=== PATIENT | female | born 1955 | race Caucasian/White ===

== ENCOUNTER 2016-06-24 11:11 | Observation (INO) ==
[2016-06-24] MEDS ORDERED: methylPREDNISolone 125 MG/2 ML VIAL IVP ONE (11:19)
[2016-06-24] MEDS ORDERED: Ipratropium/Albuterol Neb 3 ML IH ONE (11:19)
--- NOTE | 2016-06-24 11:22 | Emergency Department Note ---
Disposition Clinical Impression: Acute exacerbation of chronic obstructive airways disease Disposition: Admitted As Inpatient Condition: Good Time of Disposition: 14:31 General Adult HPI - General Chief complaint: ED Shortness of Breath/Dyspnea Stated complaint: sob Time Seen by Provider: 06/24/16 11:14 Source: EMS Limitations: no limitations Nursing Notes Reviewed: Yes Vital Signs Reviewed: Yes - History of Present Illness HPI Narrative: 61-year-old who comes in complaining of increasing shortness of breath with a history COPD. Patient's blood pressure was significantly elevated she states she normally doesn't have high blood pressure takes no medications for it. Also states she's had intermittent rectal bleeding for almost a year now. States she saw her family doctor and they gave her MiraLAX for the problem. She also complains of burning on urination. The patient also complains of pain between her shoulder blades. Pt Subjective Complaint: Shortness of breath, burning on urination recurrent rectal bleeding. Onset (ago): Just [employer] Location: back Radiation: non-radiation (Upper) Pain Severity: severe Pain Scale: 10 Quality: aching Consistency: constant Improves with: nothing Worsens with: nothing Associated symptoms: Reports: cough Treatments Prior to Arrival: none - Related Data Home Medications Medication Instructions Recorded Confirmed Calcium Carbonate/Vitamin D3 1 tab PO BID #0 06/09/15 06/24/16 [Calcium 500 + Vit D Caplet] Citalopram Hydrobromide [Celexa] 20 mg PO DAILY 06/09/15 06/24/16 Ergocalciferol (VITAMIN D2) 50,000 unit PO QWEEK 06/09/15 06/24/16 [Drisdol (50,000 Unit)] Fluticasone Propionate [Flovent 50 mcg IH DAILY 06/09/15 06/24/16 Diskus] Fluticasone/Salmeterol [Advair 1 each IH DAILY 06/09/15 06/24/16 250-50 Diskus] Furosemide [Lasix] 20 mg PO DAILY 06/09/15 06/24/16 Ipratropium/Albuterol Neb [Duoneb] 3 ml IH Q6HR 06/09/15 06/24/16 Lansoprazole [Prevacid] 30 mg PO QAM 06/09/15 06/24/16 Pregabalin [Lyrica] 75 mg PO BID 06/09/15 06/24/16 Tiotropium [Spiriva] 18 mcg IH DAILY 06/09/15 06/24/16 Vit D3/Folic Acid/B2/B6/B12 1 each PO DAILY 06/09/15 06/24/16 [Folgard Tablet] Oxygen 2 l NS CONT 06/24/16 06/24/16 Potassium Chloride [Klor-Con 10] 10 meq PO DAILY 06/24/16 06/24/16 Allergies Allergy/AdvReac Type Severity Reaction Status Date / Time bupropion [From Wellbutrin] AdvReac Nightmare Verified 06/24/16 14:52 codeine AdvReac Hives Verified 06/24/16 14:52 gabapentin AdvReac Difficulty Verified 06/24/16 14:52 Breathing ibuprofen AdvReac Hives Verified 06/24/16 14:52 levofloxacin AdvReac Hives Verified 06/24/16 14:52 meperidine AdvReac Hives Verified 06/24/16 14:52 morphine AdvReac Hives Verified 06/24/16 14:52 naproxen AdvReac Hives Verified 06/24/16 14:52 NSAIDS (Non-Steroidal AdvReac Hives Verified 06/24/16 14:52 Anti-Inflamma Sulfa (Sulfonamide AdvReac Hives Verified 06/24/16 14:52 Antibiotics) tramadol AdvReac Difficulty Verified 06/24/16 14:52 Breathing Varenicline AdvReac Hives Verified 06/24/16 14:52 Constitutional: Denies: fever, chills, weakness, weight change Eyes: Denies: eye pain, eye discharge, vision change ENT ED: Denies: ear pain, throat pain, dental pain, hearing loss, epistaxis, congestion, dysphagia Cardiovascular: Denies: chest pain, palpitations, dyspnea on exertion, edema, syncope Respiratory: Denies: cough, dyspnea, wheezes, hemoptysis, stridor Gastrointestinal: Reports: hematochezia. Denies: abdominal pain, nausea, vomiting, diarrhea, constipation, hematemesis, melena Genitourinary: Reports: dysuria. Denies: frequency, hematuria, discharge Musculoskeletal: Reports: back pain. Denies: neck pain, arthralgia, myalgia Integumentary: Denies: rash, abrasion, lesions Neurological: Denies: headache, weakness, numbness, paresthesias, confusion, abnormal gait, vertigo Psychiatric: Denies: anxiety, depression, suicidal thoughts, homicidal thoughts , auditory hallucinations, visual hallucinations Endocrine: Denies: fatigue Hematological/Lymphatic: Denies: easy bleeding, easy bruising Allergic/Immunologic: Denies: facial swelling, urticaria Past Medical History - Past Medical History Medical history: Reports: asthma, COPD, GERD, other Surgical history: Reports: cholecystectomy, knee replacement, other Psychiatric history: Reports: anxiety, bipolar, depression - Social History Smoking Status: Current every day smoker Smokeless Tobacco Status: No Alcohol use: Reports: occasionally Drug use: Reports: none Physical Exam - General Limitations: no limitations General appearance: alert - Head Head exam: atraumatic, normocephalic, normal inspection - Eye Eye exam: Present: normal appearance, PERRL, EOMI - ENT ENT exam: normal exam, normal oropharynx, mucous membranes moist - Neck Neck exam: Present: normal inspection, full ROM, trachea midline - Chest Chest inspection: Present: normal inspection, symmetric chest wall rise - Cardiovascular Cardiovascular exam: Present: regular rate, normal rhythm, normal heart sounds - Abdominal Exam Abdominal exam: Present: soft, Non-Tender. Absent: tenderness, distention, guarding, rebound, rigidity - Extremities Exam Extremities exam: Present: normal inspection, full ROM. Absent: tenderness, pedal edema - Expanded Lower Extremity Exam Neurovascular/Tendon exam: Absent: motor deficit, sensory deficit, tendon deficit Gait: observed and normal - Back Exam Back exam: Present: normal inspection, full ROM. Absent: tenderness - Neurological Exam Neurological exam: Present: alert, oriented X3. Absent: normal gait, motor sensory deficit - Psychiatric Psychiatric exam: Present: normal affect, normal mood - Skin Skin exam: Present: warm, intact, normal color Course - Reevaluation(s) Reevaluation #1: 61-year-old with history of COPD comes in with increasing shortness of breath. Patient is oxygen dependent at home and uses 2 L she is requiring 4 L to maintain her sat now. Treated with breathing treatments steroids had some improvement she also complained of pain in her back between her shoulder blades. A CTA was obtained due to the patient's symptoms and the fact she had a significantly elevated blood pressure. No evidence of dissection on CT. She will be admitted for an exacerbation of COPD Time: 14:32 - Consultations Consultation #1: Discussed with Dr. Grimes. Time: 14:36 Vital Signs Temperature 98.6 F 06/24/16 11:16 Pulse Rate 94 06/24/16 11:16 Respiratory Rate 20 06/24/16 11:16 Blood Pressure 170/125 06/24/16 11:16 O2 Sat by Pulse Oximetry 93 06/24/16 11:16 Temperature 98.6 F 06/24/16 11:16 Pulse Rate 92 06/24/16 14:24 Respiratory Rate 19 06/24/16 15:02 Blood Pressure 146/88 06/24/16 15:02 O2 Sat by Pulse Oximetry 94 06/24/16 14:24 Oxygen Delivery Oxygen Delivery Nasal Cannula Medical Decision Making - Lab Data Result diagrams: 06/24/16 12:05 06/24/16 12:05 Lab Results 06/24/16 06/24/16 06/24/16 Range/Units 11:55 12:05 12:05 WBC 8.0 (4.3-11.1) K/mcL RBC 4.69 (3.82-4.97) M/mcL Hgb 13.3 (11.5-15.4) g/dL Hct 42.4 (35.3-44.9) % MCV 90.4 (83.0-100.0) fL MCH 28.4 (28.0-33.3) pg MCHC 31.4 L (31.6-35.5) g/dL RDW 17.4 H (11.5-14.5) % Plt Count 273 (140-400) K/mcL MPV 10.1 (9.4-12.4) fL Immature Gran % 0.4 (0-4) % Seg Neutrophils % 62.6 % Lymphocytes % 24.4 % Monocytes % 11.1 % Eosinophils % 1.0 % Basophils % 0.5 % Neutrophils # 5.0 (1.6-8.9) K/mcL Lymphocytes # 2.0 (0.6-4.6) K/mcL Monocytes # 0.9 (0.0-1.3) K/mcL Eosinophils # 0.1 (0.0-0.6) K/mcL Basophils # 0.0 (0.0-0.2) K/mcL PT 10.7 (9.4-12.1) Seconds INR 1.0 APTT 27.1 (26.0-36.0) Seconds Sodium 137 (136-145) mEq/L Potassium 4.3 (3.5-4.5) mEq/L Chloride 102 (98-109) mEq/L Carbon Dioxide 27 (19-29) mEq/L BUN 10 (7-20) mg/dL Creatinine 0.75 (0.57-1.11) mg/dL Est GFR ( Amer) > 60 (> 60) Est GFR (Non-Af Amer) > 60 (> 60) BUN/Creatinine Ratio 13 (6-26) Glucose 92 (70-99) mg/dL Calculated Osmolality 283 (280-300) Calcium 9.2 (8.6-10.8) mg/dL Troponin I (0-0.03) ng/mL B-Natriuretic Peptide (0-100) pg/mL 06/24/16 06/24/16 Range/Units 12:05 12:05 WBC (4.3-11.1) K/mcL RBC (3.82-4.97) M/mcL Hgb (11.5-15.4) g/dL Hct (35.3-44.9) % MCV (83.0-100.0) fL MCH (28.0-33.3) pg MCHC (31.6-35.5) g/dL RDW (11.5-14.5) % Plt Count (140-400) K/mcL MPV (9.4-12.4) fL Immature Gran % (0-4) % Seg Neutrophils % % Lymphocytes % % Monocytes % % Eosinophils % % Basophils % % Neutrophils # (1.6-8.9) K/mcL Lymphocytes # (0.6-4.6) K/mcL Monocytes # (0.0-1.3) K/mcL Eosinophils # (0.0-0.6) K/mcL Basophils # (0.0-0.2) K/mcL PT (9.4-12.1) Seconds INR APTT (26.0-36.0) Seconds Sodium (136-145) mEq/L Potassium (3.5-4.5) mEq/L Chloride (98-109) mEq/L Carbon Dioxide (19-29) mEq/L BUN (7-20) mg/dL Creatinine (0.57-1.11) mg/dL Est GFR ( Amer) (> 60) Est GFR (Non-Af Amer) (> 60) BUN/Creatinine Ratio (6-26) Glucose (70-99) mg/dL Calculated Osmolality (280-300) Calcium (8.6-10.8) mg/dL Troponin I 0.00 (0-0.03) ng/mL B-Natriuretic Peptide 82 (0-100) pg/mL - Radiology Data Radiology results reviewed: Yes I reviewed the patient's radiology results. Chest X-Ray 06/24/16 11:19 IMPRESSION: 1. Low lung volumes with bibasilar atelectasis. D/ / 06/24/2016 11:44:39 Marianna Singh MD / colt Interpreting Provider: Marianna Singh MD Abdomen/Pelvis CT 06/24/16 11:26 IMPRESSION: 1. No pulmonary embolus. 2. No acute cardiopulmonary disease. Basilar atelectasis is present. 3. No acute intra-abdominal abnormality. 4. Moderate diverticulosis. 5. Severe atherosclerosis. 6. Status post cholecystectomy. D/ / 06/24/2016 13:58:34 Marianna Singh MD / colt Interpreting Provider: Marianna Singh MD Chest CTA 06/24/16 11:26 IMPRESSION: 1. No pulmonary embolus. 2. No acute cardiopulmonary disease. Basilar atelectasis is present. 3. No acute intra-abdominal abnormality. 4. Moderate diverticulosis. 5. Severe atherosclerosis. 6. Status post cholecystectomy. D/ / 06/24/2016 13:58:34 Marianna Singh MD / colt Interpreting Provider: Marianna Singh MD - EKG Data EKG #1 EKG shows normal: sinus rhythm Rate: normal Rhythm: NSR Interpretation: no acute changes
[2016-06-24 12:13] LABS: Prothrombin Time 10.7 Seconds (9.4-12.1)
[2016-06-24 12:16] LABS: Activated Partial Thrombo Time 27.1 Seconds (26.0-36.0)
[2016-06-24 12:22] LABS: Basophils % 0.5 %; Eosinophils # 0.1 K/mcL (0.0-0.6); Hematocrit 42.4 % (35.3-44.9); Hemoglobin 13.3 g/dL (11.5-15.4); Immature Granulocytes % 0.4 % (0-4); Lymphocytes % 24.4 %; Mean Corpuscular HGB Conc 31.4 g/dL (31.6-35.5); Mean Corpuscular Hemoglobin 28.4 pg (28.0-33.3); Mean Corpuscular Volume 90.4 fL (83.0-100.0); Mean Platelet Volume 10.1 fL (9.4-12.4); Monocytes # 0.9 K/mcL (0.0-1.3); Monocytes % 11.1 %; Platelet Count 273 K/mcL (140-400); Red Blood Count 4.69 M/mcL (3.82-4.97); Red Cell Distribution Width 17.4 % (11.5-14.5); Segmented Neutrophils % 62.6 %
[2016-06-24 12:37] LABS: BUN/Creatinine Ratio 13 (6-26); Blood Urea Nitrogen 10 mg/dL (7-20); Calcium 9.2 mg/dL (8.6-10.8); Carbon Dioxide 27 mEq/L (19-29); Chloride 102 mEq/L (98-109); Glucose 92 mg/dL (70-99); Osmolality,Calculated 283 (280-300); Potassium 4.3 mEq/L (3.5-4.5); Sodium 137 mEq/L (136-145); eGFR For African Americans > 60 (> 60); eGFR For Non-African Americans > 60 (> 60)
[2016-06-24] MEDS ORDERED: Ondansetron 4 MG/2 ML VIAL IVP ONE (13:08)
[2016-06-24] MEDS ORDERED: *HR* HYDROmorphone (PF) 1 MG/ML SYRINGE IVP ONE (13:08)
--- NOTE | 2016-06-24 16:00 | Internal Med History&Physical ---
Date of Encounter: 06/24/16 Time of Encounter: 15:56 Assessment and Plan (1) Acute exacerbation of chronic obstructive airways disease Current visit: Yes Status: Acute was given IV methylpred and nebs at ED that improved her symptoms. she has no wheezing now and is sating well will put her on oral steroids and duonebs. no pneumonia on the CT. possible dc in the am if stable overnight. (2) HTN (hypertension) Current visit: Yes Status: Acute no h.o HTN In the past. noted BP of 200s systolic on presentation BP much better now at 160/90s. will observe for today, ?2/2 stress, hydralazine prn. if persistently elevated , may need to add an anti hypertensive. Qualifiers: Hypertension type: essential hypertension Qualified Code(s): I10 - Essential (primary) hypertension (3) Obesity Current visit: No Status: Acute Qualifiers: Obesity type: unspecified obesity type Obesity severity: unspecified obesity severity Qualified Code(s): E66.9 - Obesity, unspecified (4) Tobacco abuse Current visit: No Status: Acute Internal Medicine - H&P: HPI Chief complaint: sob Admitted From: Home Plans for Post Hospital Care: Home History of present illness: Ms. Soto is a 61 year old female with past medical history of COPD on 2 L of home oxygen at night, presented with the complains of shortness of breath since this morning. She says that she woke up with shortness of breath and some chest heaviness. She took her breathing treatments at home, however her symptoms did not improve. She denies any fever, she has chronic cough from COPD. No abdominal pain, nausea or vomiting. She has history of diverticulosis, and GI bleed in the past. She has not had a colonoscopy and was scheduled for one but she says the transport never showed up. However she denies any bleeding in her stool at this time or any h/o moi. AT the time of my assesment, she is sitting comfortably in the bed in no acute distress. the rehabilitation institute reports that she has no h/o HTN but on presentation, her BP was elevated. Past Med Surg Social Fam HX - Past Medical History Medical history: asthma, COPD, GERD, other Psychiatric history: anxiety, bipolar, depression - Past Surgical History Surgical History: cholecystectomy, knee replacement, other - Social History Smoking Status: Current every day smoker Smokeless Tobacco Status: No Alcohol use: occasionally Drug use: none - Family History Father Adopted: No Hx Family Cardiac Disorders: Yes Hx Family Respiratory Disorders: Yes Hx Family Cancer: Yes Hx Family GI Disorders: No Hx Family Endocrine Disorder: No Hx Family Neuromuscular Disorders: No Hx Family Neurologic Disorders: No Hx Family HEENT Disorders: No Hx Family Autoimmune Disorders: No Internal Medicine - H&P: Meds Calcium Carbonate/Vitamin D3 [Calcium 500 + Vit D Caplet] 1 tab PO BID #0 06/08 [History] Citalopram Hydrobromide [Celexa] 20 mg PO DAILY 06/09/15 [History] Ergocalciferol (VITAMIN D2) [Drisdol (50,000 Unit)] 50,000 unit PO QWEEK [History] Fluticasone Propionate [Flovent Diskus] 50 mcg IH DAILY 06/09/15 [History] Fluticasone/Salmeterol [Advair 250-50 Diskus] 1 each IH DAILY 06/09/15 [History] Furosemide [Lasix] 20 mg PO DAILY 06/09/15 [History] Ipratropium/Albuterol Neb [Duoneb] 3 ml IH Q6HR 06/09/15 [History] Lansoprazole [Prevacid] 30 mg PO QAM 06/09/15 [History] Pregabalin [Lyrica] 75 mg PO BID 06/09/15 [History] Tiotropium [Spiriva] 18 mcg IH DAILY 06/09/15 [History] Vit D3/Folic Acid/B2/B6/B12 [Folgard Tablet] 1 each PO DAILY 06/09/15 [History] Oxygen 2 l NS CONT 06/24/16 [History] Potassium Chloride [Klor-Con 10] 10 meq PO DAILY 06/24/16 [History] Allergies bupropion [From Wellbutrin] Adverse Reaction (Verified 06/24/16 14:52) Nightmare codeine Adverse Reaction (Verified 06/24/16 14:52) Hives gabapentin Adverse Reaction (Verified 06/24/16 14:52) Difficulty Breathing ibuprofen Adverse Reaction (Verified 06/24/16 14:52) Hives levofloxacin Adverse Reaction (Verified 06/24/16 14:52) Hives meperidine Adverse Reaction (Verified 06/24/16 14:52) Hives morphine Adverse Reaction (Verified 06/24/16 14:52) Hives naproxen Adverse Reaction (Verified 06/24/16 14:52) Hives NSAIDS (Non-Steroidal Anti-Inflamma Adverse Reaction (Verified 06/24/16 14:52) Hives Sulfa (Sulfonamide Antibiotics) Adverse Reaction (Verified 06/24/16 14:52) Hives tramadol Adverse Reaction (Verified 06/24/16 14:52) Difficulty Breathing Varenicline Adverse Reaction (Verified 06/24/16 14:52) Hives All Systems PM: A 10-system review of systems was performed and is negative for pertinent findings except as documented above in the HPI. - Constitutional Vitals: Temp Pulse Resp BP Pulse Ox 97.5 F L 110 19 166/84 96 06/24/16 15:34 06/24/16 15:34 06/24/16 15:34 06/24/16 15:34 06/24/16 15:34 General appearance: Present: A&O X 3, no acute distress Exam: neck- supple chest- b.l clear, no wheezing at present cvs-s1 and s2, no m/r/g abd- soft, non tender, bs are present ext- no edema neuro- no focal defecits. Internal Med - H&P Results - Labs CBC & Chem 7: 06/24/16 12:05 06/24/16 12:05
[2016-06-24] MEDS ORDERED: Naloxone 0.4 MG/ML INJ IVP PRN (16:06)
[2016-06-24] MEDS ORDERED: Ipratropium/Albuterol Neb 3 ML IH PRN (16:07)
[2016-06-24] MEDS ORDERED: Budesonide/Formoterol 80/4.5 MDI IH SCH (16:15)
[2016-06-24] MEDS: Tiotropium 18 MCG inhalation IH SCH (16:32)
[2016-06-24] MEDS: *HR* HYDROcodone/Acet 5/325 mg TABLET PO PRN (18:50)
[2016-06-24] MEDS: Pregabalin 75 MG CAPSULE PO SCH (20:32)
[2016-06-24] MEDS: (Calcium Carbonate/Vitamin D3 [Calcium 500 + Vit D Ca) PO SCH (20:32)
[2016-06-24] MEDS ORDERED: *HR* HYDROcodone/Acet 5/325 mg TABLET PO ONE (21:44)
[2016-06-24 22:16] LABS: Bilirubin,Urine Negative (Negative); Blood,Urine Negative (Negative); Clarity,Urine Clear (Clear); Color,Urine Yellow (Yellow); Glucose,Urine (UA) Normal (Normal); Ketones,Urine Negative (Negative); Leukocyte Esterase,Urine Small (Negative); Nitrite,Urine Negative (Negative); PH,Urine 6.5 pH Units (5.0-8.0); Protein,Urine Negative (Neg-Trace); Specific Gravity,Urine 1.008 (1.010-1.025); Urobilinogen,Urine Normal (Normal)
[2016-06-24 22:19] LABS: Bacteria,Urine None Seen per hpf (None-Few); Hyaline Casts,Urine None Seen per lpf (None-Few); RBC,Urine 0-3 per hpf (0-3); Squamous Epithelial Cell,Urine Many per lpf (None-Few)
[2016-06-25] MEDS: *HR* HYDROcodone/Acet 5/325 mg TABLET PO PRN ×2 (01:15→07:27)
[2016-06-25 03:38] LABS: Immature Granulocytes % 0.4 % (0-4); Lymphocytes # 0.8 K/mcL (0.6-4.6); Lymphocytes % 14.5 %; Mean Corpuscular HGB Conc 31.6 g/dL (31.6-35.5); Mean Corpuscular Hemoglobin 28.4 pg (28.0-33.3); Mean Corpuscular Volume 89.8 fL (83.0-100.0); Monocytes # 0.5 K/mcL (0.0-1.3); Monocytes % 9.8 %; Neutrophils # 4.1 K/mcL (1.6-8.9); Platelet Count 273 K/mcL (140-400); Red Blood Count 4.23 M/mcL (3.82-4.97); Red Cell Distribution Width 16.8 % (11.5-14.5); Segmented Neutrophils % 75.3 %
[2016-06-25 03:51] LABS: BUN/Creatinine Ratio 17 (6-26); Blood Urea Nitrogen 12 mg/dL (7-20); Calcium 8.6 mg/dL (8.6-10.8); Carbon Dioxide 26 mEq/L (19-29); Chloride 100 mEq/L (98-109); Glucose 120 mg/dL (70-99); Magnesium 1.6 mg/dL (1.6-2.6); Osmolality,Calculated 279 (280-300); Phosphorous 3.4 mg/dL (2.3-4.7); Sodium 134 mEq/L (136-145); eGFR For African Americans > 60 (> 60); eGFR For Non-African Americans > 60 (> 60)
[2016-06-25] MEDS ORDERED: *HR* Enoxaparin 30 MG/0.3 ML SYRINGE SQ SCH (06:00)
[2016-06-25] MEDS: Pregabalin 75 MG CAPSULE PO SCH (07:27)
[2016-06-25] MEDS: (Calcium Carbonate/Vitamin D3 [Calcium 500 + Vit D Ca) PO SCH (07:30)
[2016-06-25] MEDS: Tiotropium 18 MCG inhalation IH SCH (08:25)
[2016-06-25] MEDS ORDERED: Furosemide 20 MG TABLET PO SCH (09:00)
[2016-06-25] MEDS ORDERED: predniSONE 20 MG TABLET PO SCH (09:00)
[2016-06-25] MEDS ORDERED: Fluticasone Propionate Nasal 50 MCG/SPRAY BOTTLE NS SCH (09:00)
[2016-06-25 11:12] VITALS: BP 144/82
--- NOTE | 2016-06-25 12:16 | Discharge Summary ---
Date of Encounter: 06/25/16 Time of Encounter: 09:00 - Discharge Diagnosis (1) Acute exacerbation of chronic obstructive airways disease Priority: Primary Status: Acute Comments: Patient was admitted for 1 week history of difficulty breathing. She reports a productive cough with white sputum. She denies fever or chills. CTA of the chest showed no PE, no acute cardiopulmonary disease and bibasilar atelectasis. Patient states that she is returned to her baseline breathing and is ready to go home. Her lungs are diminished with inspiratory wheezing posteriorly. Lungs are clear and upper anterior lung avila. Patient states that her humidifier for her oxygen has been broken for 13 months. bag shop worker is talking with her regarding calling company to get it fixed. Patient states that she fired her primary care physician, she has not made an appointment with Bhanu Calle and has an appointment on August 15. She has no fever and no leukocytosis at this time. She is doing well with breathing treatments. She says she does not need any medications for home. (2) Obesity Priority: Secondary Status: Chronic Comments: Chronic. Lifestyle changes. Qualifiers: Obesity type: unspecified obesity type Obesity severity: unspecified obesity severity Qualified Code(s): E66.9 - Obesity, unspecified (3) Tobacco abuse Priority: Secondary Status: Chronic Comments: I attempted to discuss smoking cessation with patient she says that she is not ready although she knows she needs to quit. (4) HTN (hypertension) Priority: Secondary Status: Acute Comments: Patient's blood pressure was 200 systolic in the emergency department. It came down on its own to 160s over 90s in the emergency department. She has been 140s over 80s today which is near baseline, and has been 120s systolic prior to that. She denies any history of hypertension and says that she has never had high readings in the past. I discussed with her checking blood pressures at 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 I suggested that she follow-up with her new provider and if readings are above 180 systolic she should seek medical help. Qualifiers: Hypertension type: essential hypertension Qualified Code(s): I10 - Essential (primary) hypertension (5) History of GI bleed Priority: Secondary Status: Acute Comments: Patient states that she has a four-month history of GI bleeding daily. She was incontinent and has begun wearing attends. She says that it stopped about a month ago, however, she is still wearing the intestines. Patient reports what appeared to be red Jell-O with blood clots intermittently in her stool. She says that she was having 15-20 episodes a day of diarrhea. Sometimes dark stool sometimes the red Jell-O with blood clots, and sometimes just regular stool. She said that she saw Dr. Sutton who attempted to give her stool softeners which she felt was not appropriate treatment, so she "fired" him. He scheduled a colonoscopy in May which she missed due to transportation issues. She said that the bleeding has stopped. Her hemoglobin and hematocrit are within normal limits. She does not appear to be in any respiratory distress and her vital signs are stable. She had a CT in the emergency room last night that showed no acute intra-abdominal abnormality, moderate diverticulosis, status post cholecystectomy. She said she will follow-up with her new primary care physician, Bhanu Calle, for follow-up in August. - Discharge Medications Prescriptions: PredniSONE 10 mg PO DAILY #31 tablet Home Medications: Calcium Carbonate/Vitamin D3 [Calcium 500 + Vit D Caplet] 1 tab PO BID #0 06/08 [History] Citalopram Hydrobromide [Celexa] 20 mg PO DAILY 06/09/15 [History] Ergocalciferol (VITAMIN D2) [Drisdol (50,000 Unit)] 50,000 unit PO QWEEK [History] Fluticasone Propionate [Flovent Diskus] 50 mcg IH DAILY 06/09/15 [History] Fluticasone/Salmeterol [Advair 250-50 Diskus] 1 each IH DAILY 06/09/15 [History] Furosemide [Lasix] 20 mg PO DAILY 06/09/15 [History] Ipratropium/Albuterol Neb [Duoneb] 3 ml IH Q6HR 06/09/15 [History] Lansoprazole [Prevacid] 30 mg PO QAM 06/09/15 [History] Pregabalin [Lyrica] 75 mg PO BID 06/09/15 [History] Tiotropium [Spiriva] 18 mcg IH DAILY 06/09/15 [History] Vit D3/Folic Acid/B2/B6/B12 [Folgard Tablet] 1 each PO DAILY 06/09/15 [History] Oxygen 2 l NS CONT 06/24/16 [History] Potassium Chloride [Klor-Con 10] 10 meq PO DAILY 06/24/16 [History] PredniSONE 10 mg PO DAILY #31 tablet 06/25/16 [Rx] Allergies/Adverse Reactions: Allergies bupropion [From Wellbutrin] Adverse Reaction (Verified 06/24/16 14:52) Nightmare codeine Adverse Reaction (Verified 06/24/16 14:52) Hives gabapentin Adverse Reaction (Verified 06/24/16 14:52) Difficulty Breathing ibuprofen Adverse Reaction (Verified 06/24/16 14:52) Hives levofloxacin Adverse Reaction (Verified 06/24/16 14:52) Hives meperidine Adverse Reaction (Verified 06/24/16 14:52) Hives morphine Adverse Reaction (Verified 06/24/16 14:52) Hives naproxen Adverse Reaction (Verified 06/24/16 14:52) Hives NSAIDS (Non-Steroidal Anti-Inflamma Adverse Reaction (Verified 06/24/16 14:52) Hives Sulfa (Sulfonamide Antibiotics) Adverse Reaction (Verified 06/24/16 14:52) Hives tramadol Adverse Reaction (Verified 06/24/16 14:52) Difficulty Breathing Varenicline Adverse Reaction (Verified 06/24/16 14:52) Hives Date of admission: 06/24/16 14:52 Primary care physician: Mina Richards MD Discharging clinician: Kenisha Capps Anticipated date of discharge: 06/25/16 - Patient Status Disposition: Home, Self-Care Functional capacity at discharge: independent ambulation Overall status at discharge: patient is back to baseline - Discharge Instructions Follow Up With: Mina Richards MD [Primary Care Provider] - 07/02/16 1:15 pm Additional Instructions: Take your home medications Take prednisone as written until it is gone. Wear your oxygen as needed Make sure that you are checking your blood pressure, if it is elevated again, please seek medical treatment. Follow up with Bhanu Calle as scheduled in August. Return to the ER as needed for any other problems or concerns. - Diet and Activity Activity: increase activity as tolerated Diet: low fat, low cholesterol, low salt diet Hospital course: Ms. Soto is a 61 year old female with past medical history COPD shortness oxygen at night. She also reports a recent history of 4 months of GI bleeding. She reports what looked like red Jell-O with blood clots multiple times. She says she has become incontinent of stool for the last 4 months but has regained continence, and is still wearing attends. She says that she had 15-20 episodes of diarrhea daily, sometimes it was dark stool, sometimes it was blood, and sometimes of his normal stool. She denies any back injury or back pain. She says that she was seen by her primary care physician who gave her laxatives because he believed she was constipated. He also scheduled a colonoscopy for her that she missed due to transportation issues. She has since fired her family physician and has an appointment with Bhanu Calle on August 15. Her abdomen is soft and rounded bowel sounds are present. She denies loose stools anymore and says that she has regular again. She attributes all this to poor quality drinking water where she was living, she has moved now and takes bottled water. She says this is most likely what resolved her symptoms. Her abdomen is soft obese and nontender. Her CAT scan from the emergency department showed no acute intra-abdominal abnormality and moderate diverticulosis. Patient reports that she was supposed to go to urgent care 1 week ago for urinary symptoms but could not go because her family friend's car was impounded and they had no way to get there. At the same time she also says that she began having difficulty breathing. She was not seen until yesterday for both symptoms. She reports a productive cough with white sputum but denies fever. She reported urinary symptoms of frequency and burning, however she denied them to me. Urine was positive for small amount of leukocyte esterase and white blood cells 5-15. There is negative for bacteria and a culture is pending. She is also being treated for exacerbation of COPD. One-week history of productive cough and shortness of breath. Her chest CT was negative for PE as well as cardiopulmonary disease. Basilar atelectasis is present. She states that her humidifier for her oxygen is broken, it was broken 13 months ago when she moved. bag shop worker has discussed with her how to get that fixed. Patient states that she still has a tank which she uses. She denies need for prescriptions. We discussed her blood pressure is 140s over 80s currently which is high recommended baseline. I discussed with her that she should have her blood pressure checked routinely whether she is at [facility] or [facility] or wherever she goes and if it goes much higher she needs to seek medical attention. Patient states that she has returned to her own baseline of breathing and wants to go home. Patient is stable for discharge. - Time Spent with Patient Total time spent providing and/or coordinating discharge services: Less than 30 minutes - Constitutional Vitals: Temp Pulse Resp BP Pulse Ox 98.5 F 76 16 144/82 93 06/25/16 11:11 06/25/16 11:11 06/25/16 11:11 06/25/16 11:11 06/25/16 11:11 General appearance: Present: A&O X 3, pleasant, no acute distress, answers questions appropriately - Head Head exam: Present: normal inspection - Eye Eye exam: Present: normal appearance, conjuntiva pink - Neck Neck exam general surgery: Present: normal inspection. Absent: lymphadenopathy , tenderness - Respiratory Respiratory exam: Present: decreased breath sounds, rhonchi, wheezes. Absent: rales, respiratory distress, tachypnea - GI/Abdominal GI/Abdominal exam: Present: normal bowel sounds, soft. Absent: distended, hepatomegaly, tenderness - Extremities Exam Extremities exam: Present: normal capillary refill, normal inspection, warm, radial pulses palpable and symetrical. Absent: pedal edema, tenderness - Neurological Exam Neurological exam: Present: alert, oriented X3, no focal deficits. Absent: facial droop, speech deficit
[2016-06-26] MEDS ORDERED: *HR* Enoxaparin 40 MG/0.4 ML SYRINGE SQ SCH (06:00)
--- NOTE | 2016-06-26 06:15 | Electrocardiograph Report ---
[address] [place], [place] [address] Test Date: 2016-06-24 Pat Name: Mariaelena Soto Department: 104 Room: 3B24 Gender: F Progressive Care Nurse: : 1955 Requested By: Cornelius García Order Number: [id number] Reading MD: Tanner Stafford MD Measurements Intervals [place] Rate: 94 P: 44 FL: 156 QRS: 26 QRSD: 88 T: 46 QT: 338 QTc: 390 Interpretive Statements SINUS RHYTHM Electronically Signed On 06-26-2016 6:13:46 EDT by Tanner Stafford MD
[2016-06-26] MEDS ORDERED: hydroCHLOROthiazide 25 MG TABLET PO SCH (09:00)
== END 2016-06-25 13:05 | disposition home or self-care (01) ==
LOC: 3BNU 11:11 → EMEROO 11:11 → 3BNU 15:26
PROVIDERS: ADMIT Internal Medicine Endocrinology, Diabetes & Metabolism; ATTEND Registered Nurse

== ENCOUNTER 2018-06-03 07:29 | Observation (INO) ==
[2018-06-03 08:14] LABS: Basophils % 0.3 %; Eosinophils # 0.1 K/mcL (0.0-0.6); Eosinophils % 0.5 %; Hematocrit 42.6 % (35.3-44.9); Hemoglobin 14.3 g/dL (11.5-15.4); Immature Granulocytes % 0.3 % (0-4); Lymphocytes # 1.7 K/mcL (0.6-4.6); Lymphocytes % 13.5 %; Mean Corpuscular HGB Conc 33.6 g/dL (31.6-35.5); Mean Corpuscular Hemoglobin 32.7 pg (28.0-33.3); Mean Corpuscular Volume 97.5 fL (83.0-100.0); Mean Platelet Volume 10.5 fL (9.4-12.4); Monocytes # 1.4 K/mcL (0.0-1.3); Monocytes % 10.7 %; Neutrophils # 9.4 K/mcL (1.6-8.9); Platelet Count 248 K/mcL (140-400); Red Blood Count 4.37 M/mcL (3.82-4.97); Red Cell Distribution Width 12.3 % (11.5-14.5); Segmented Neutrophils % 74.7 %
--- NOTE | 2018-06-03 08:18 | Emergency Department Note ---
Addendum entered and electronically signed by Hardy Abbasi DO 06/03/18 13:12: I, Hardy Abbasi DO have provided [id number] time during the care of this patient. Detailed review the presentation, symptoms, medical history were discussed and reviewed with the advanced practice provider (Ruchi Garcia/REHAB AIDE. Medical intervention labs and imaging studies were reviewed in detail. See full documentation of physical exam and course of care in the advanced practice provider's note. I agree with the determined course of care, medical intervention and disposition put forth by the advanced practice provider. See below documentation for changes or alterations in documentation. Original Note: Disposition Clinical Impression: Acute exacerbation of chronic obstructive airways disease Abdominal pain Qualifiers: Abdominal location: left upper quadrant Qualified Code(s): R10.12 - Left upper quadrant pain Disposition: Admitted As Inpatient Condition: Fair Forms: ED Satisfaction Letter, Work/School Release Abdominal Pain HPI - General Stated Complaint: abdominal pain Time Seen by Provider: 06/03/18 07:32 Source: patient, EMS Mode of arrival: EMS Limitations: no limitations Nursing Notes Reviewed: Yes Vital Signs Reviewed: Yes - History of Present Illness Pt Subjective Complaint: abdominal pain, other (cough, HAIR, ) Onset (ago): day(s) Consistency: Worsening Location: LUQ Pain Severity: moderate Pain Scale: 5 Quality: cramping Radiation: none Migration to: no migration Improves with: nothing Worsens with: nothing Context: history of similar episodes, other ("constipated" - Last BM was 3 days ago) Associated symptoms: Reports: nausea, vomiting (once yesterday), constipation. Denies: diarrhea, fever, chills, dysuria, hematemesis, hematochezia, melena, hematuria, anorexia, syncope Treatments prior to arrival: OTC medications - Related Data Home Medications Medication Instructions Recorded Confirmed Calcium Carbonate/Vitamin D3 1 tab PO BID #0 06/09/15 06/24/16 [Calcium 500 + Vit D Caplet] Citalopram Hydrobromide [Celexa] 20 mg PO DAILY 06/09/15 06/24/16 Ergocalciferol (VITAMIN D2) 50,000 unit PO QWEEK 06/09/15 06/24/16 [Drisdol (50,000 Unit)] Fluticasone Propionate [Flovent 50 mcg IH DAILY 06/09/15 06/24/16 Diskus] Fluticasone/Salmeterol [Advair 1 each IH DAILY 06/09/15 06/24/16 250-50 Diskus] Furosemide [Lasix] 20 mg PO DAILY 06/09/15 06/24/16 Ipratropium/Albuterol Neb [Duoneb] 3 ml IH Q6HR 06/09/15 06/24/16 Lansoprazole [Prevacid] 30 mg PO QAM 06/09/15 06/24/16 Pregabalin [Lyrica] 75 mg PO BID 06/09/15 06/24/16 Tiotropium [Spiriva] 18 mcg IH DAILY 06/09/15 06/24/16 Vit D3/Folic Acid/B2/B6/B12 1 each PO DAILY 06/09/15 06/24/16 [Folgard Tablet] Oxygen 2 l NS CONT 06/24/16 06/24/16 Potassium Chloride [Klor-Con 10] 10 meq PO DAILY 06/24/16 06/24/16 Previous Rx's Medication Instructions Recorded predniSONE [PredniSONE] 10 mg PO DAILY #31 tablet 06/25/16 Azithromycin [Azithromycin 6-Tab 250 mg PO PER PKG DI #6 tab 10/03/16 Pack] Lidocaine HCl [Lidocaine HCl 15 ml MM Q4H PRN #100 ml 10/03/16 Viscous] PredniSONE [Deltasone] 60 mg PO DAILY #15 tablet 10/03/16 Allergies Allergy/AdvReac Type Severity Reaction Status Date / Time bupropion [From Wellbutrin] AdvReac Nightmare Verified 06/24/16 14:52 codeine AdvReac Hives Verified 06/24/16 14:52 gabapentin AdvReac Difficulty Verified 06/24/16 14:52 Breathing ibuprofen AdvReac Hives Verified 06/24/16 14:52 levofloxacin AdvReac Hives Verified 06/24/16 14:52 meperidine AdvReac Hives Verified 06/24/16 14:52 morphine AdvReac Hives Verified 06/24/16 14:52 naproxen AdvReac Hives Verified 06/24/16 14:52 NSAIDS (Non-Steroidal AdvReac Hives Verified 06/24/16 14:52 Anti-Inflamma Sulfa (Sulfonamide AdvReac Hives Verified 04/16/17 14:52 Antibiotics) tramadol AdvReac Difficulty Verified 06/24/16 14:52 Breathing Varenicline AdvReac Hives Verified 06/24/16 14:52 All systems ED: reviewed and negative except as stated. Review of Systems: As Per HPI Constitutional: Denies: fever, chills, weakness, weight change, night sweats Eyes: Denies: vision change ENT ED: Denies: throat pain, congestion Cardiovascular: Reports: as per HPI, dyspnea on exertion. Denies: chest pain, palpitations, orthopnea, edema, syncope Respiratory: Reports: cough, dyspnea, wheezes. Denies: hemoptysis, stridor, sputum production Gastrointestinal: Reports: as per HPI, abdominal pain, nausea, vomiting, constipation. Denies: diarrhea, hematemesis, melena, hematochezia Genitourinary: Denies: urgency, dysuria, frequency, hematuria Musculoskeletal: Denies: back pain, neck pain, joint swelling Integumentary: Denies: rash, lesions, pruritus Neurological: Denies: headache, weakness, confusion, vertigo Hematological/Lymphatic: Denies: easy bleeding, easy bruising, lymphadenopathy Abdominal Pain PMH - Past Medical History Medical history: Reports: asthma, COPD, GERD, other Reports: recurrent abdominal pain, other ("IBS") Female Surgical History: Reports: non-contributory [employer] history: Reports: no [employer] history Psychiatric history: Reports: anxiety, bipolar, depression - Social History Smoking status: Current every day smoker Alcohol use: Reports: occasionally Drug use: Reports: none Physical Exam - General Limitations: no limitations General appearance: alert, in no apparent distress - Head Head exam: atraumatic, normocephalic, normal inspection - Eye Eye exam: Present: normal appearance, PERRL. Absent: scleral icterus, con junctival injection, periorbital swelling - ENT ENT exam: normal oropharynx, mucous membranes moist - Neck Neck exam: Present: normal inspection, full ROM, trachea midline. Absent: tenderness, meningismus, lymphadenopathy - Chest Chest inspection: Present: normal inspection, symmetric chest wall rise - Respiratory Respiratory exam: Present: respiratory distress (tachypneic - speaks in 2-3 word sentences), wheezes. Absent: stridor, accessory muscle use, prolonged expiratory phase - Cardiovascular Cardiovascular exam: Present: normal rhythm, tachycardia, normal heart sounds - Abdominal Exam Abdominal exam: Present: soft, tenderness, normal bowel sounds. Absent: distention, guarding, rebound, rigidity, organomegaly, ascites, mass, pulsatile mass - Extremities Exam Extremities exam: Present: normal inspection, full ROM, normal capillary refill. Absent: pedal edema, calf tenderness - Back Exam Back exam: Present: normal inspection, full ROM. Absent: tenderness, CVA tenderness (R), CVA tenderness (L) - Neurological Exam Neurological exam: Present: alert, oriented X3, CN II-XII intact, normal gait - Psychiatric Psychiatric exam: Present: normal affect, normal mood - Skin Skin exam: Present: warm, dry, intact, normal color Course Course Narrative: Patient presents by EMS for eval of HAIR, productive cough, LUQ abd pain, constipation and one episode of vomiting. She describes hx of recurrent constipation and states that she was supposed to have a colonoscopy last year but the bowel prep "did not work" so the test was cancelled. She believes it was ordered for screening. She denies fever / chills, urinary complaints, chest pain or syncope. No hx of DVT/PE, no hemoptysis. She attributes her increased dyspnea and worsened cough to walking in the rain, and states that it feels like a "flare up of her COPD." No recent med changes. She appears uncomfortable and is diaphoretic. Breath sounds diminished a little on the left with wheezing bilaterally. She is mildly tachypneic. Abdomen is soft with tenderness in the LUQ. No guarding. Normal bowel sounds. Case discussed with Dr. Abbasi. He has had [id number] time with patient and agrees with the assessment, plan. He also has reviewed the EKG. Shows sinus tach rate of 102 and is unchanged compared to June 2016. Chest x-ray was read by the radiologist as stable bilateral perihilar opacities unchanged compared to previous may represent interstitial changes, vascular congestion or chronic pneumonitis. CT of the abdomen and pelvis was done with oral and IV contrast as recommended by Dr. Abbasi. This has been read by the radiologist as no acute abnormality. No obstruction. Scattered diverticulosis without diverticulitis. Patient's labs are essentially normal with the exception of mild leukocytosis. Patient received DuoNeb's, Solu-Medrol, IV fluids. She describes symptomatic improvement, however, she continues to be mildly tachypneic at times and her oxygen saturation decreased to 90% after one short lap around the emergency department. Suspect COPD exacerbation, plus or minus community-acquired pneumonia. Dr. Ayleen bell's admission. Patient is in agreement. Vital Signs Temperature 99.5 F 06/03/18 07:42 Pulse Rate 109 06/03/18 07:42 Respiratory Rate 16 06/03/18 07:42 Blood Pressure 140/113 06/03/18 07:42 O2 Sat by Pulse Oximetry 98 06/03/18 07:42 Temperature 99.5 F 06/03/18 07:42 Pulse Rate 104 06/03/18 10:30 Respiratory Rate 18 06/03/18 09:49 Blood Pressure 146/95 06/03/18 10:30 O2 Sat by Pulse Oximetry 97 06/03/18 10:30 Oxygen Delivery Oxygen Delivery Nasal Cannula Abdominal Pain - Medical Records Medical records reviewed: Yes I reviewed the patient's medical records. - Lab Data Lab results reviewed: Yes I reviewed the patient's lab results. Lab results narrative: Laboratory Last Values WBC 12.6 K/mcL (4.3-11.1) H 06/03/18 07:57 RBC 4.37 M/mcL (3.82-4.97) 06/03/18 07:57 Hgb 14.3 g/dL (11.5-15.4) 06/03/18 07:57 Hct 42.6 % (35.3-44.9) 06/03/18 07:57 MCV 97.5 fL (83.0-100.0) 06/03/18 07:57 MCH 32.7 pg (28.0-33.3) 06/03/18 07:57 MCHC 33.6 g/dL (31.6-35.5) 06/03/18 07:57 RDW 12.3 % (11.5-14.5) 06/03/18 07:57 Plt Count 248 K/mcL (140-400) 06/03/18 07:57 MPV 10.5 fL (9.4-12.4) 06/03/18 07:57 Immature Gran % 0.3 % (0-4) 06/03/18 07:57 Seg Neutrophils % 74.7 % 06/03/18 07:57 Lymphocytes % 13.5 % 06/03/18 07:57 Monocytes % 10.7 % 06/03/18 07:57 Eosinophils % 0.5 % 06/03/18 07:57 Basophils % 0.3 % 06/03/18 07:57 Neutrophils # 9.4 K/mcL (1.6-8.9) H 06/03/18 07:57 Lymphocytes # 1.7 K/mcL (0.6-4.6) 06/03/18 07:57 Monocytes # 1.4 K/mcL (0.0-1.3) H 06/03/18 07:57 Eosinophils # 0.1 K/mcL (0.0-0.6) 06/03/18 07:57 Basophils # 0.0 K/mcL (0.0-0.2) 06/03/18 07:57 Sodium 136 mEq/L (136-145) 06/03/18 07:57 Potassium 3.9 mEq/L (3.5-5.1) 06/03/18 07:57 Chloride 102 mEq/L (98-107) 06/03/18 07:57 Carbon Dioxide 23 mEq/L (23-29) 06/03/18 07:57 BUN 3 mg/dL (8-23) L 06/03/18 07:57 Creatinine 0.65 mg/dL (0.60-1.20) 06/03/18 07:57 Est GFR ( Amer) > 60 (> 60) 06/03/18 07:57 Est GFR (Non-Af Amer) > 60 (> 60) 06/03/18 07:57 BUN/Creatinine Ratio 5 (6-26) L 06/03/18 07:57 Glucose 106 mg/dL (70-105) H 06/03/18 07:57 Calculated Osmolality 279 (280-300) L 06/03/18 07:57 Lactic Acid 1.0 mmol/L (0.5-2.2) 06/03/18 07:57 Calcium 9.4 mg/dL (8.6-10.3) 06/03/18 07:57 Phosphorus 3.8 mg/dL (2.7-4.5) 06/03/18 07:57 Magnesium 1.7 mg/dL (1.6-2.6) 06/03/18 07:57 Total Bilirubin 0.5 mg/dL (0.3-1.0) 06/03/18 07:57 Direct Bilirubin 0.1 mg/dL (0.0-0.2) 06/03/18 07:57 Indirect Bilirubin 0.4 mg/dL (0.0-1.2) 06/03/18 07:57 AST 37 Units/L (13-39) 06/03/18 07:57 ALT 27 Units/L (7-52) 06/03/18 07:57 Alkaline Phosphatase 62 Units/L (34-104) 06/03/18 07:57 Troponin I < 0.03 ng/mL (< 0.04) 06/03/18 07:57 Serum Total Protein 7.6 g/dL (6.4-8.9) 06/03/18 07:57 Albumin 4.0 g/dL (3.5-5.7) 06/03/18 07:57 Globulin 3.6 g/dL (2.4-3.5) H 06/03/18 07:57 Albumin/Globulin Ratio 1.1 (1.1-2.2) 06/03/18 07:57 Lipase 7 Units/L (11-82) L 06/03/18 07:57 TSH 1.013 mcIU/mL (0.340-5.600) 06/03/18 07:57 Free T4 1.01 ng/dl (0.70-2.00) 06/03/18 07:57 Urine Color Yellow (Yellow) 06/03/18 08:50 Urine Clarity Cloudy (Clear) A 06/03/18 08:50 Urine pH 6.0 pH Units (5.0-8.0) 06/03/18 08:50 Ur Specific [place] 1.007 (1.010-1.025) L 06/03/18 08:50 Urine Protein Negative mg/dL (Neg-Trace) 06/03/18 08:50 Urine Glucose (UA) Normal mg/dL (Normal) 06/03/18 08:50 Urine Ketones 15 mg/dL (Negative) H 06/03/18 08:50 Urine Blood Negative (Negative) 06/03/18 08:50 Urine Nitrite Negative (Negative) 06/03/18 08:50 Urine Bilirubin Negative (Negative) 06/03/18 08:50 Urine Urobilinogen Normal mg/dL (Normal) 06/03/18 08:50 Ur Leukocyte Esterase Trace (Negative) H 06/03/18 08:50 Urine Microscopic RBC 0-3 per hpf (0-3) 06/03/18 08:50 Urine Microscopic WBC 0-3 per hpf (0-3) 06/03/18 08:50 Ur Squamous Epith Cells Many per lpf (None-Few) H 06/03/18 08:50 Urine Bacteria None Seen per hpf (None-Few) 06/03/18 08:50 Hyaline Casts None Seen per lpf (None-Few) 06/03/18 08:50 Ur Culture Indicated? NO. (NO) A 06/03/18 08:50 Ur Drug Screen Interp See Below 06/03/18 11:55 Result diagrams: 06/03/18 07:57 06/03/18 07:57 Lab Results 06/03/18 06/03/18 06/03/18 Range/Units 07:57 07:57 07:57 WBC 12.6 H (4.3-11.1) K/mcL RBC 4.37 (3.82-4.97) M/mcL Hgb 14.3 (11.5-15.4) g/dL Hct 42.6 (35.3-44.9) % MCV 97.5 (83.0-100.0) fL MCH 32.7 (28.0-33.3) pg MCHC 33.6 (31.6-35.5) g/dL RDW 12.3 (11.5-14.5) % Plt Count 248 (140-400) K/mcL MPV 10.5 (9.4-12.4) fL Immature Gran % 0.3 (0-4) % Seg Neutrophils % 74.7 % Lymphocytes % 13.5 % Monocytes % 10.7 % Eosinophils % 0.5 % Basophils % 0.3 % Neutrophils # 9.4 H (1.6-8.9) K/mcL Lymphocytes # 1.7 (0.6-4.6) K/mcL Monocytes # 1.4 H (0.0-1.3) K/mcL Eosinophils # 0.1 (0.0-0.6) K/mcL Basophils # 0.0 (0.0-0.2) K/mcL Sodium 136 (136-145) mEq/L Potassium 3.9 (3.5-5.1) mEq/L Chloride 102 (98-107) mEq/L Carbon Dioxide 23 (23-29) mEq/L BUN 3 L (8-23) mg/dL Creatinine 0.65 (0.60-1.20) mg/dL Est GFR ( Amer) > 60 (> 60) Est GFR (Non-Af Amer) > 60 (> 60) BUN/Creatinine Ratio 5 L (6-26) Glucose 106 H (70-105) mg/dL Calculated Osmolality 279 L (280-300) Lactic Acid 1.0 (0.5-2.2) mmol/L Calcium 9.4 (8.6-10.3) mg/dL Phosphorus 3.8 (2.7-4.5) mg/dL Magnesium 1.7 (1.6-2.6) mg/dL Total Bilirubin 0.5 (0.3-1.0) mg/dL Direct Bilirubin 0.1 (0.0-0.2) mg/dL Indirect Bilirubin 0.4 (0.0-1.2) mg/dL AST 37 (13-39) Units/L ALT 27 (7-52) Units/L Alkaline Phosphatase 62 (34-104) Units/L Troponin I < 0.03 (< 0.04) ng/mL Serum Total Protein 7.6 (6.4-8.9) g/dL Albumin 4.0 (3.5-5.7) g/dL Globulin 3.6 H (2.4-3.5) g/dL Albumin/Globulin Ratio 1.1 (1.1-2.2) Lipase 7 L (11-82) Units/L TSH 1.013 (0.340-5.600) mcIU/mL Free T4 1.01 (0.70-2.00) ng/dl Urine Color (Yellow) Urine Clarity (Clear) Urine pH (5.0-8.0) pH Units Ur Specific [place] (1.010-1.025) Urine Protein (Neg-Trace) mg/dL Urine Glucose (UA) (Normal) mg/dL Urine Ketones (Negative) mg/dL Urine Blood (Negative) Urine Nitrite (Negative) Urine Bilirubin (Negative) Urine Urobilinogen (Normal) mg/dL Ur Leukocyte Esterase (Negative) Urine Microscopic RBC (0-3) per hpf Urine Microscopic WBC (0-3) per hpf Ur Squamous Epith Cells (None-Few) per lpf Urine Bacteria (None-Few) per hpf Hyaline Casts (None-Few) per lpf Ur Culture Indicated? (NO) 06/03/18 Range/Units 08:50 WBC (4.3-11.1) K/mcL RBC (3.82-4.97) M/mcL Hgb (11.5-15.4) g/dL Hct (35.3-44.9) % MCV (83.0-100.0) fL MCH (28.0-33.3) pg MCHC (31.6-35.5) g/dL RDW (11.5-14.5) % Plt Count (140-400) K/mcL MPV (9.4-12.4) fL Immature Gran % (0-4) % Seg Neutrophils % % Lymphocytes % % Monocytes % % Eosinophils % % Basophils % % Neutrophils # (1.6-8.9) K/mcL Lymphocytes # (0.6-4.6) K/mcL Monocytes # (0.0-1.3) K/mcL Eosinophils # (0.0-0.6) K/mcL Basophils # (0.0-0.2) K/mcL Sodium (136-145) mEq/L Potassium (3.5-5.1) mEq/L Chloride (98-107) mEq/L Carbon Dioxide (23-29) mEq/L BUN (8-23) mg/dL Creatinine (0.60-1.20) mg/dL Est GFR ( Amer) (> 60) Est GFR (Non-Af Amer) (> 60) BUN/Creatinine Ratio (6-26) Glucose (70-105) mg/dL Calculated Osmolality (280-300) Lactic Acid (0.5-2.2) mmol/L Calcium (8.6-10.3) mg/dL Phosphorus (2.7-4.5) mg/dL Magnesium (1.6-2.6) mg/dL Total Bilirubin (0.3-1.0) mg/dL Direct Bilirubin (0.0-0.2) mg/dL Indirect Bilirubin (0.0-1.2) mg/dL AST (13-39) Units/L ALT (7-52) Units/L Alkaline Phosphatase (34-104) Units/L Troponin I (< 0.04) ng/mL Serum Total Protein (6.4-8.9) g/dL Albumin (3.5-5.7) g/dL Globulin (2.4-3.5) g/dL Albumin/Globulin Ratio (1.1-2.2) Lipase (11-82) Units/L TSH (0.340-5.600) mcIU/mL Free T4 (0.70-2.00) ng/dl Urine Color Yellow (Yellow) Urine Clarity Cloudy A (Clear) Urine pH 6.0 (5.0-8.0) pH Units Ur Specific [place] 1.007 L (1.010-1.025) Urine Protein Negative (Neg-Trace) mg/dL Urine Glucose (UA) Normal (Normal) mg/dL Urine Ketones 15 H (Negative) mg/dL Urine Blood Negative (Negative) Urine Nitrite Negative (Negative) Urine Bilirubin Negative (Negative) Urine Urobilinogen Normal (Normal) mg/dL Ur Leukocyte Esterase Trace H (Negative) Urine Microscopic RBC 0-3 (0-3) per hpf Urine Microscopic WBC 0-3 (0-3) per hpf Ur Squamous Epith Cells Many H (None-Few) per lpf Urine Bacteria None Seen (None-Few) per hpf Hyaline Casts None Seen (None-Few) per lpf Ur Culture Indicated? NO. A (NO) - Radiology Data Radiology results reviewed: Yes I reviewed the patient's radiology results. Chest X-Ray 06/03/18 07:55 IMPRESSION: Stable perihilar opacities in the right middle and lower lobes. Lack of change from multiple prior studies would favor vascular congestion or chronic interstitial change. Chronic pneumonitis can not be excluded. D/ / Barry Webster MD / Barry Webster MD Interpreting Provider: Barry Webster MD Abdomen/Pelvis CT 06/03/18 10:20 IMPRESSION: 1. No acute intra-abdominal or intrapelvic process. 2. Minor colonic diverticulosis without evidence of diverticulitis. 3. Status post cholecystectomy. Atherosclerotic abdominal aortic calcification also noted. D/ / Lucius Castellanos MD / Lucius Castellanos MD Interpreting Provider: Lucius Castellanos MD - EKG Data EKG attestation: Yes I reviewed and interpreted this EKG. EKG shows normal: sinus rhythm Rate: tachycardia Rhythm: NSR [place]/QRS: normal When compared to previous EKG there are: no significant changes Interpretation: no acute changes
[2018-06-03] MEDS ORDERED: 0.9 % Sodium Chloride 1,000 ML IVC ONE (08:33)
[2018-06-03] MEDS ORDERED: *HR* Nalbuphine 10 MG/ML AMPUL IV ONE (08:34)
[2018-06-03 08:37] LABS: Alanine Aminotransferase 27 Units/L (7-52); Albumin/Globulin Ratio 1.1 (1.1-2.2); Alkaline Phosphatase 62 Units/L (34-104); Aspartate Amino Transferase 37 Units/L (13-39); BUN/Creatinine Ratio 5 (6-26); Bilirubin,Direct 0.1 mg/dL (0.0-0.2); Bilirubin,Indirect 0.4 mg/dL (0.0-1.2); Bilirubin,Total 0.5 mg/dL (0.3-1.0); Blood Urea Nitrogen 3 mg/dL (8-23); Calcium 9.4 mg/dL (8.6-10.3); Carbon Dioxide 23 mEq/L (23-29); Chloride 102 mEq/L (98-107); Globulin 3.6 g/dL (2.4-3.5); Glucose 106 mg/dL (70-105); Lipase 7 Units/L (11-82); Magnesium 1.7 mg/dL (1.6-2.6); Osmolality,Calculated 279 (280-300); Phosphorous 3.8 mg/dL (2.7-4.5); Potassium 3.9 mEq/L (3.5-5.1); Sodium 136 mEq/L (136-145); Total Protein 7.6 g/dL (6.4-8.9); Troponin I < 0.03 ng/mL (< 0.04); eGFR For Non-African Americans > 60 (> 60)
[2018-06-03] MEDS ORDERED: Isovue-370 500 ML BOTTLE IVP ONE (08:46)
[2018-06-03] MEDS ORDERED: Ipratropium/Albuterol Neb 3 ML IH ONE ×2 (09:02→11:46)
[2018-06-03 09:04] LABS: Thyroid Stimulating Hormone 1.013 mcIU/mL (0.340-5.600)
--- NOTE | 2018-06-03 09:09 | Emergency Department Note ---
Disposition Clinical Impression: Acute exacerbation of chronic obstructive airways disease Abdominal pain Qualifiers: Abdominal location: left upper quadrant Qualified Code(s): R10.12 - Left upper quadrant pain Disposition: Admitted As Inpatient Condition: Fair Referrals: Bennie Linares [Primary Care Provider] - Forms: ED Satisfaction Letter, Work/School Release Time of Disposition: 13:13 General Adult HPI - General Chief complaint: ED Abdominal Pain Stated complaint: abdominal pain Time Seen by Provider: 06/03/18 07:32 Source: patient, EMS Mode of arrival: EMS Limitations: no limitations - History of Present Illness Pain Scale: 8 - Related Data Home Medications Medication Instructions Recorded Confirmed Calcium Carbonate/Vitamin D3 1 tab PO BID #0 06/09/15 06/24/16 [Calcium 500 + Vit D Caplet] Citalopram Hydrobromide [Celexa] 20 mg PO DAILY 06/09/15 06/24/16 Ergocalciferol (VITAMIN D2) 50,000 unit PO QWEEK 06/09/15 06/24/16 [Drisdol (50,000 Unit)] Fluticasone Propionate [Flovent 50 mcg IH DAILY 06/09/15 06/24/16 Diskus] Fluticasone/Salmeterol [Advair 1 each IH DAILY 06/09/15 06/24/16 250-50 Diskus] Furosemide [Lasix] 20 mg PO DAILY 06/09/15 06/24/16 Ipratropium/Albuterol Neb [Duoneb] 3 ml IH Q6HR 06/09/15 06/24/16 Lansoprazole [Prevacid] 30 mg PO QAM 06/09/15 06/24/16 Pregabalin [Lyrica] 75 mg PO BID 06/09/15 06/24/16 Tiotropium [Spiriva] 18 mcg IH DAILY 06/09/15 06/24/16 Vit D3/Folic Acid/B2/B6/B12 1 each PO DAILY 06/09/15 06/24/16 [Folgard Tablet] Oxygen 2 l NS CONT 06/24/16 06/24/16 Potassium Chloride [Klor-Con 10] 10 meq PO DAILY 06/24/16 06/24/16 Previous Rx's Medication Instructions Recorded predniSONE [PredniSONE] 10 mg PO DAILY #31 tablet 06/25/16 Azithromycin [Azithromycin 6-Tab 250 mg PO PER PKG DI #6 tab 10/03/16 Pack] Lidocaine HCl [Lidocaine HCl 15 ml MM Q4H PRN #100 ml 10/03/16 Viscous] PredniSONE [Deltasone] 60 mg PO DAILY #15 tablet 10/03/16 Allergies Allergy/AdvReac Type Severity Reaction Status Date / Time bupropion [From Wellbutrin] AdvReac Nightmare Verified 06/24/16 14:52 codeine AdvReac Hives Verified 06/24/16 14:52 gabapentin AdvReac Difficulty Verified 06/24/16 14:52 Breathing ibuprofen AdvReac Hives Verified 06/24/16 14:52 levofloxacin AdvReac Hives Verified 06/24/16 14:52 meperidine AdvReac Hives Verified 06/24/16 14:52 morphine AdvReac Hives Verified 06/24/16 14:52 naproxen AdvReac Hives Verified 06/24/16 14:52 NSAIDS (Non-Steroidal AdvReac Hives Verified 06/24/16 14:52 Anti-Inflamma Sulfa (Sulfonamide AdvReac Hives Verified 06/24/16 14:52 Antibiotics) tramadol AdvReac Difficulty Verified 06/24/16 14:52 Breathing Varenicline AdvReac Hives Verified 06/24/16 14:52 Past Medical History - Past Medical History Medical history: Reports: asthma, COPD, GERD, other Surgical history: Reports: cholecystectomy, knee replacement, other Psychiatric history: Reports: anxiety, bipolar, depression - Social History Smoking Status: Current every day smoker Smokeless Tobacco Status: No Alcohol use: Reports: occasionally Drug use: Reports: none Physical Exam - General Limitations: no limitations General appearance: alert Course Vital Signs Temperature 99.5 F 06/03/18 07:42 Pulse Rate 109 06/03/18 07:42 Respiratory Rate 16 06/03/18 07:42 Blood Pressure 140/113 06/03/18 07:42 O2 Sat by Pulse Oximetry 98 06/03/18 07:42 Temperature 99.5 F 06/03/18 07:42 Pulse Rate 104 06/03/18 11:56 Respiratory Rate 20 06/03/18 11:56 Blood Pressure 121/106 06/03/18 11:56 O2 Sat by Pulse Oximetry 90 06/03/18 11:56 Oxygen Delivery Oxygen Delivery Nasal Cannula Medical Decision Making - Lab Data Result diagrams: 06/03/18 07:57 06/03/18 07:57 Lab Results 06/03/18 06/03/18 06/03/18 Range/Units 07:57 07:57 07:57 WBC 12.6 H (4.3-11.1) K/mcL RBC 4.37 (3.82-4.97) M/mcL Hgb 14.3 (11.5-15.4) g/dL Hct 42.6 (35.3-44.9) % MCV 97.5 (83.0-100.0) fL MCH 32.7 (28.0-33.3) pg MCHC 33.6 (31.6-35.5) g/dL RDW 12.3 (11.5-14.5) % Plt Count 248 (140-400) K/mcL MPV 10.5 (9.4-12.4) fL Immature Gran % 0.3 (0-4) % Seg Neutrophils % 74.7 % Lymphocytes % 13.5 % Monocytes % 10.7 % Eosinophils % 0.5 % Basophils % 0.3 % Neutrophils # 9.4 H (1.6-8.9) K/mcL Lymphocytes # 1.7 (0.6-4.6) K/mcL Monocytes # 1.4 H (0.0-1.3) K/mcL Eosinophils # 0.1 (0.0-0.6) K/mcL Basophils # 0.0 (0.0-0.2) K/mcL Sodium 136 (136-145) mEq/L Potassium 3.9 (3.5-5.1) mEq/L Chloride 102 (98-107) mEq/L Carbon Dioxide 23 (23-29) mEq/L BUN 3 L (8-23) mg/dL Creatinine 0.65 (0.60-1.20) mg/dL Est GFR ( Amer) > 60 (> 60) Est GFR (Non-Af Amer) > 60 (> 60) BUN/Creatinine Ratio 5 L (6-26) Glucose 106 H (70-105) mg/dL Calculated Osmolality 279 L (280-300) Lactic Acid 1.0 (0.5-2.2) mmol/L Calcium 9.4 (8.6-10.3) mg/dL Phosphorus 3.8 (2.7-4.5) mg/dL Magnesium 1.7 (1.6-2.6) mg/dL Total Bilirubin 0.5 (0.3-1.0) mg/dL Direct Bilirubin 0.1 (0.0-0.2) mg/dL Indirect Bilirubin 0.4 (0.0-1.2) mg/dL AST 37 (13-39) Units/L ALT 27 (7-52) Units/L Alkaline Phosphatase 62 (34-104) Units/L Troponin I < 0.03 (< 0.04) ng/mL Serum Total Protein 7.6 (6.4-8.9) g/dL Albumin 4.0 (3.5-5.7) g/dL Globulin 3.6 H (2.4-3.5) g/dL Albumin/Globulin Ratio 1.1 (1.1-2.2) Lipase 7 L (11-82) Units/L TSH 1.013 (0.340-5.600) mcIU/mL Free T4 1.01 (0.70-2.00) ng/dl Urine Color (Yellow) Urine Clarity (Clear) Urine pH (5.0-8.0) pH Units Ur Specific [place] (1.010-1.025) Urine Protein (Neg-Trace) mg/dL Urine Glucose (UA) (Normal) mg/dL Urine Ketones (Negative) mg/dL Urine Blood (Negative) Urine Nitrite (Negative) Urine Bilirubin (Negative) Urine Urobilinogen (Normal) mg/dL Ur Leukocyte Esterase (Negative) Urine Microscopic RBC (0-3) per hpf Urine Microscopic WBC (0-3) per hpf Ur Squamous Epith Cells (None-Few) per lpf Urine Bacteria (None-Few) per hpf Hyaline Casts (None-Few) per lpf Ur Culture Indicated? (NO) Urine Opiates Screen (Lsusjq=769) ng/mL Ur Barbiturates Screen (Hxvnaq=563) ng/mL Ur Phencyclidine Scrn (Cutoff=25) ng/mL Ur Amphetamines Screen (Wgqdzi=0326) ng/mL U Benzodiazepines Scrn (Fzulfq=165) ng/mL Urine Cocaine Screen (Cutoff= 300) ng/mL U Marijuana (THC) Screen (Cutoff = 50) ng/mL Ur Drug Screen Interp 06/03/18 06/03/18 Range/Units 08:50 11:55 WBC (4.3-11.1) K/mcL RBC (3.82-4.97) M/mcL Hgb (11.5-15.4) g/dL Hct (35.3-44.9) % MCV (83.0-100.0) fL MCH (28.0-33.3) pg MCHC (31.6-35.5) g/dL RDW (11.5-14.5) % Plt Count (140-400) K/mcL MPV (9.4-12.4) fL Immature Gran % (0-4) % Seg Neutrophils % % Lymphocytes % % Monocytes % % Eosinophils % % Basophils % % Neutrophils # (1.6-8.9) K/mcL Lymphocytes # (0.6-4.6) K/mcL Monocytes # (0.0-1.3) K/mcL Eosinophils # (0.0-0.6) K/mcL Basophils # (0.0-0.2) K/mcL Sodium (136-145) mEq/L Potassium (3.5-5.1) mEq/L Chloride (98-107) mEq/L Carbon Dioxide (23-29) mEq/L BUN (8-23) mg/dL Creatinine (0.60-1.20) mg/dL Est GFR ( Amer) (> 60) Est GFR (Non-Af Amer) (> 60) BUN/Creatinine Ratio (6-26) Glucose (70-105) mg/dL Calculated Osmolality (280-300) Lactic Acid (0.5-2.2) mmol/L Calcium (8.6-10.3) mg/dL Phosphorus (2.7-4.5) mg/dL Magnesium (1.6-2.6) mg/dL Total Bilirubin (0.3-1.0) mg/dL Direct Bilirubin (0.0-0.2) mg/dL Indirect Bilirubin (0.0-1.2) mg/dL AST (13-39) Units/L ALT (7-52) Units/L Alkaline Phosphatase (34-104) Units/L Troponin I (< 0.04) ng/mL Serum Total Protein (6.4-8.9) g/dL Albumin (3.5-5.7) g/dL Globulin (2.4-3.5) g/dL Albumin/Globulin Ratio (1.1-2.2) Lipase (11-82) Units/L TSH (0.340-5.600) mcIU/mL Free T4 (0.70-2.00) ng/dl Urine Color Yellow (Yellow) Urine Clarity Cloudy A (Clear) Urine pH 6.0 (5.0-8.0) pH Units Ur Specific [place] 1.007 L (1.010-1.025) Urine Protein Negative (Neg-Trace) mg/dL Urine Glucose (UA) Normal (Normal) mg/dL Urine Ketones 15 H (Negative) mg/dL Urine Blood Negative (Negative) Urine Nitrite Negative (Negative) Urine Bilirubin Negative (Negative) Urine Urobilinogen Normal (Normal) mg/dL Ur Leukocyte Esterase Trace H (Negative) Urine Microscopic RBC 0-3 (0-3) per hpf Urine Microscopic WBC 0-3 (0-3) per hpf Ur Squamous Epith Cells Many H (None-Few) per lpf Urine Bacteria None Seen (None-Few) per hpf Hyaline Casts None Seen (None-Few) per lpf Ur Culture Indicated? NO. A (NO) Urine Opiates Screen Negative (Ogbcjj=390) ng/mL Ur Barbiturates Screen Negative (Cwbxdh=307) ng/mL Ur Phencyclidine Scrn Negative (Cutoff=25) ng/mL Ur Amphetamines Screen Negative (Tivgvs=1718) ng/mL U Benzodiazepines Scrn Negative (Douazv=248) ng/mL Urine Cocaine Screen Negative (Cutoff= 300) ng/mL U Marijuana (THC) Screen Negative (Cutoff = 50) ng/mL Ur Drug Screen Interp See Below Attestation Statement - Attestation Attestation: I, Hardy Abbasi DO have provided [id number] time during the care of this patient. Detailed review the presentation, symptoms, medical history were discussed and reviewed with the advanced practice provider Ruchi Ruiz PA-C/ICHTHYOLOGY TEACHER. Medical intervention labs and imaging studies were reviewed in detail. See full documentation of physical exam and course of care in the advanced practice provider's note. I agree with the determined course of care, medical intervention and disposition put forth by the advanced practice provider. See below documentation for changes or alterations in documentation. 63-year-old female presents emergency room with complaint of abdominal discomfort and pain. Patient has not had a bowel movement in several days. She does have a chronic history of constipation. She denies any falls trauma or injury. Currently she denying chest pain. She was seen by her primary care provider and they did want to have her sent to the hospital for admission secondary to her pulmonary related issues. She is a smoker and has baseline COPD and emphysema. She has not been using her medications at home as they are prescribed secondary to her roommate saying that the machine is too loud. Vital signs otherwise stable. Patient is otherwise in no distress. She does have some accessory muscle use and some conversational dyspnea. He is denying any other symptoms or complaints at this time. Head is atraumatic. Oropharynx is patent. She has no stridor no trismus. Lungs appear to be clear in the anterior listing avila in all 4 quadrants. Heart is regular with no murmur. Abdomen is not distended but she does have tenderness across the right upper quadrant left upper quadrant left lower quadrant. She has had her gallbladder out as well as a total hysterectomy in the past. She currently denies any other symptoms or issues. She does not have any vaginal discharge or bleeding. She is able to walk around the emergency department without any problem or distress. Workup will be completed this time looking for cardiac and pulmonary related sources of symptoms as well as CT imaging of the abdomen with oral and IV contrast rule out obstruction versus intra-abdominal pathology that has not been addressed over the last several days. Symptomatic control will be completed and then disposition will be determined. See detailed documentation the physical exam, medical intervention, medical decision-making and disposition in the advanced practice provider's note. No critical care applied the patient's treatment course at this time. 1300 Patient has negative laboratory workup. CT imaging of his abdomen is unremarkable. Patient is still symptomatically short of breath. Because of this admission process was established. The hospitalist Dr. Zamora reviewed the case. No other recommendations or concerns. Patient will be monitored in the emergency department until the admission process is completed.
[2018-06-03 09:10] LABS: Bilirubin,Urine Negative (Negative); Blood,Urine Negative (Negative); Clarity,Urine Cloudy (Clear); Color,Urine Yellow (Yellow); Glucose,Urine (UA) Normal (Normal); Ketones,Urine 15 mg/dL (Negative); Leukocyte Esterase,Urine Trace (Negative); Nitrite,Urine Negative (Negative); Protein,Urine Negative (Neg-Trace); Specific Gravity,Urine 1.007 (1.010-1.025); Urobilinogen,Urine Normal (Normal)
[2018-06-03 09:13] LABS: Bacteria,Urine None Seen per hpf (None-Few); Hyaline Casts,Urine None Seen per lpf (None-Few); RBC,Urine 0-3 per hpf (0-3); Squamous Epithelial Cell,Urine Many per lpf (None-Few); WBC,Urine 0-3 per hpf (0-3)
[2018-06-03] MEDS ORDERED: methylPREDNISolone 125 MG/2 ML VIAL IVP ONE (11:47)
[2018-06-03] MEDS ORDERED: Azithromycin 500 MG in D5% in Water 250 ML IVPB ONE (11:59)
[2018-06-03] MEDS ORDERED: cefTRIAXone 1,000 MG in 0.9 % Sodium Chloride Mini Bag 100 ML IVPB ONE (11:59)
[2018-06-03 12:30] LABS: Amphetamine Screen,Urine Negative ng/mL (Cutoff=1000); Barbiturate Screen,Urine Negative ng/mL (Cutoff=200); Benzodiazepines Screen,Urine Negative ng/mL (Cutoff=200); Cannabinoid Screen,Urine Negative ng/mL (Cutoff = 50); Cocaine Screen,Urine Negative ng/mL (Cutoff= 300); Opiate Screen,Urine Negative ng/mL (Cutoff=300); Phencyclidine Screen,Urine Negative ng/mL (Cutoff=25)
[2018-06-03] MEDS ORDERED: Ondansetron 4 MG/2 ML VIAL IVP PRN (13:56)
[2018-06-03] MEDS ORDERED: Naloxone 0.4 MG/ML INJ IVP PRN (13:56)
--- NOTE | 2018-06-03 14:09 | Internal Med History&Physical ---
Date of Encounter: 06/03/18 Time of Encounter: 13:45 Internal Medicine - H&P: HPI Chief complaint: shortness of breath/abdominal pain Admitted From: Home Plans for Post Hospital Care: Home History of present illness: Ms. Soto is a 63 year old female with PMH of COPD on home oxygen, anxiety, tobacco abuse, GERD, bipolar disorder, depression, anxiety, s/p cholecystectomy, diverticulosis who presents to the ER for evaluation of persistent shortness of breath and abdominal pain. Pt states she wears 3L NC at home and is chronically short of breath which has worsened in the last week. She reports of having a dry cough which has also progressively worsened. She also reports of chronic constipation which is usually managed with her daily dose of Miralax, however she reports of not having a bowel movement for the last four days and reports of diffuse abdominal discomfort. ER workup: Pt received 2 nebulizer treatments, Methylprednisolone 125mg IV, CT abd/pelvis CT abd/pelvis was negative for any acute abnormalities and reported diverticulosis without diverticulitis Pt states her breathing has significantly improved with nebulizer treatment. She reports of abdominal discomfort and requests something to help her move her bowels. Reports of feeling nauseous after the CT scan. Denies any headache, chest pain, fever, or chills at this time. Reports of being an everyday smoker, smokes 1ppd. Past Med Surg Social Fam HX - Past Medical History Medical history: asthma, COPD, GERD, other Additional medical history: emphysema, bipolar, insomnia, hepatits C, DJD, HLD, Rotator cuff tear, left lateral malleolar fx, carptal tunnel, fibromyalgia, DDD, tinnitis, hearing loss, gout, alcohol abuse, pancreatitis, eczema, uterine fibroids, breast lump, diverticulitis, [place] idiopathic, Rosacea, contatct dermatitis.on Home oxygen. Psychiatric history: anxiety, bipolar, depression - Past Surgical History Surgical History: cholecystectomy, knee replacement, other Additional surgical history: colonoscopy with polypectomy, hyperplastic, shoulder surgery, knee surgery, hernia repair,. breast reduction, sinus surgery - Social History Smoking Status: Current every day smoker Smokeless Tobacco Status: No Alcohol use: occasionally Drug use: none - Family History Father Adopted: No Hx Family Cardiac Disorders: Yes Hx Family Respiratory Disorders: Yes Hx Family Cancer: Yes Hx Family GI Disorders: No Hx Family Endocrine Disorder: No Hx Family Neuromuscular Disorders: No Hx Family Neurologic Disorders: No Hx Family HEENT Disorders: No Hx Family Autoimmune Disorders: No Internal Medicine - H&P: Meds Calcium Carbonate/Vitamin D3 [Calcium 500 + Vit D Caplet] 1 tab PO BID #0 06/09/15 [History] Citalopram Hydrobromide [Celexa] 20 mg PO DAILY 06/09/15 [History] Ergocalciferol (VITAMIN D2) [Drisdol (50,000 Unit)] 50,000 unit PO QWEEK 06/09/15 [History] Fluticasone Propionate [Flovent Diskus] 50 mcg IH DAILY 06/09/15 [History] Fluticasone/Salmeterol [Advair 250-50 Diskus] 1 each IH DAILY 06/09/15 [History] Furosemide [Lasix] 20 mg PO DAILY 06/09/15 [History] Ipratropium/Albuterol Neb [Duoneb] 3 ml IH Q6HR 06/09/15 [History] Lansoprazole [Prevacid] 30 mg PO QAM 06/09/15 [History] Pregabalin [Lyrica] 75 mg PO BID 06/09/15 [History] Tiotropium [Spiriva] 18 mcg IH DAILY 06/09/15 [History] Vit D3/Folic Acid/B2/B6/B12 [Folgard Tablet] 1 each PO DAILY 06/09/15 [History] Oxygen 2 l NS CONT 06/24/16 [History] Potassium Chloride [Klor-Con 10] 10 meq PO DAILY 06/24/16 [History] predniSONE [PredniSONE] 10 mg PO DAILY #31 tablet 06/25/16 [Rx] Azithromycin [Azithromycin 6-Tab Pack] 250 mg PO PER PKG DI #6 tab 10/03/16 [Rx] Lidocaine HCl [Lidocaine HCl Viscous] 15 ml MM Q4H PRN #100 ml 10/03/16 [Rx] PredniSONE [Deltasone] 60 mg PO DAILY #15 tablet 10/03/16 [Rx] Allergy/AdvReac Type Severity Reaction Status Date / Time bupropion [From Wellbutrin] AdvReac Nightmare Verified 06/24/16 14:52 codeine AdvReac Hives Verified 06/24/16 14:52 gabapentin AdvReac Difficulty Verified 06/24/16 14:52 Breathing ibuprofen AdvReac Hives Verified 06/24/16 14:52 levofloxacin AdvReac Hives Verified 06/24/16 14:52 meperidine AdvReac Hives Verified 06/24/16 14:52 morphine AdvReac Hives Verified 06/24/16 14:52 naproxen AdvReac Hives Verified 06/24/16 14:52 NSAIDS (Non-Steroidal AdvReac Hives Verified 06/24/16 14:52 Anti-Inflamma Sulfa (Sulfonamide AdvReac Hives Verified 06/24/16 14:52 Antibiotics) tramadol AdvReac Difficulty Verified 06/24/16 14:52 Breathing Varenicline AdvReac Hives Verified 06/24/16 14:52 All Systems PM: A 10-system review of systems was performed and is negative for pertinent findings except as documented above in the HPI. Review of systems: Ten point ROS is negative except as listed in HPI - Constitutional Vitals: Temp Pulse Resp BP Pulse Ox 99.5 F 104 22 121/106 90 06/03/18 07:42 06/03/18 11:56 06/03/18 12:00 06/03/18 11:56 06/03/18 12:00 Exam: General: No acute distress, AAO x 3, obese HEENT: EOMI, NC/AT, no scleral icterus Respiratory: Equal air entry bilaterally, no wheezing, no rales, no accessory muscle use, no tachypnea Cardiovascular: Regular, Rate, Rhythm, No murmurs GI: Soft, Non tender, non distended, normal bowel sounds Ext: No edema, no tenderness, positive pulses Neuro: AAO x 3, no focal deficits Internal Med - H&P Results - Labs CBC & Chem 7: 06/03/18 07:57 06/03/18 07:57 Labs: Short CBC 06/03/18 Range/Units 07:57 WBC 12.6 H (4.3-11.1) K/mcL Hgb 14.3 (11.5-15.4) g/dL Hct 42.6 (35.3-44.9) % Plt Count 248 (140-400) K/mcL Neutrophils # 9.4 H (1.6-8.9) K/mcL BMP 06/03/18 07:57 Sodium 136 Potassium 3.9 Chloride 102 Carbon Dioxide 23 BUN 3 L Creatinine 0.65 Glucose 106 H Calcium 9.4 Cardiac Enzymes 06/03/18 Range/Units 07:57 Troponin I < 0.03 (< 0.04) ng/mL Liver Function 06/03/18 Range/Units 07:57 Total Bilirubin 0.5 (0.3-1.0) mg/dL Direct Bilirubin 0.1 (0.0-0.2) mg/dL AST 37 (13-39) Units/L ALT 27 (7-52) Units/L Alkaline Phosphatase 62 (34-104) Units/L Albumin 4.0 (3.5-5.7) g/dL Urine 06/03/18 Range/Units 08:50 Urine Color Yellow (Yellow) Urine Clarity Cloudy A (Clear) Urine pH 6.0 (5.0-8.0) pH Units Ur Specific [place] 1.007 L (1.010-1.025) Urine Protein Negative (Neg-Trace) mg/dL Urine Glucose (UA) Normal (Normal) mg/dL - Impressions ITS Impressions Chest X-Ray 06/03/18 07:55 IMPRESSION: Stable perihilar opacities in the right middle and lower lobes. Lack of change from multiple prior studies would favor vascular congestion or chronic interstitial change. Chronic pneumonitis can not be excluded. D/ / Barry Webster MD / Barry Webster MD Interpreting Provider: Barry Webster MD Abdomen/Pelvis CT 06/03/18 10:20 IMPRESSION: 1. No acute intra-abdominal or intrapelvic process. 2. Minor colonic diverticulosis without evidence of diverticulitis. 3. Status post cholecystectomy. Atherosclerotic abdominal aortic calcification also noted. D/ / Lucius Castellanos MD / Lucius Castellanos MD Interpreting Provider: Lucius Castellanos MD - Summary of Assessment and Plan Summary of Assessment and Plan: Patient is a 63y/o female with PMH of COPD on home oxygen who presents to the ER for management of shortness of breath and abdominal pain. 1. Acute respiratory distress secondary to COPD exacerbation pt received a dose of methylprednisolone 125mg IV in the ER will start patient on Prednisone 40mg PO qdaily in am pt received a dose of Azithromycin and Ceftriaxone in the ER, however chest xray unchanged from prior studies will monitor off abx at this time continue bronchodilator support O2 supplementation as needed (pt reports of using 2-3L at all times at home), currently saturating well on 2L NC guaifenesin for cough f/u respiratory viral panel will closely monitor respiratory status 2. Abdominal pain secondary to acute on chronic constipation will administer Dulcolax suppository laxative support as needed if unable to have a bowel movement despite above interventions, will administer enema support 3. Tobacco abuse smoking cessation counseling provided patient not ready to quit at this time nicotine supplementation therapy provided Chronic Co-morbidities: HTN, GERD, anxiety, depression Will resume home medications after verification DVT ppx: Heparin SQ LOS <2 midnights as pt is currently at baseline respiratory status after receiving nebulizer treatment in the ER, will monitor overnight and if remains clinically stable, tentative d/c in am - Time Spent With Patient Total time spent is greater than 50% in coordination of care (as documented) at patient's floor/unit and/or counseling patient: 25 - 35 minutes
[2018-06-03] MEDS ORDERED: Bisacodyl 10 MG RECTAL SUPPOSITORY RC ONE (14:26)
[2018-06-03] MEDS: GuaiFENesin/Dextromethorphan TABLET PO SCH ×2 (15:14→20:07)
[2018-06-03] MEDS: Nicotine 21 MG PATCH.TD24 TD SCH (15:14)
[2018-06-03] MEDS: Sennosides/Docusate Sodium TABLET PO SCH ×2 (15:14→20:07)
[2018-06-03] MEDS ORDERED: Lidocaine Viscous Oral Soln 15 ML SOLUTION MM PRN (16:04)
[2018-06-03] MEDS ORDERED: NON-FORMULARY MEDICATION 1 EACH EACH (Oxygen [Oxygen] 2 L) NS SCH (16:15)
[2018-06-03] MEDS: Ipratropium/Albuterol Neb 3 ML IH SCH ×3 (16:22→23:48)
--- NOTE | 2018-06-03 16:26 | Electrocardiograph Report ---
[address] [place] [address] Test Date: 2018-06-03 Pat Name: Mariaelena Soto Department: EXAM2 Room: 2A42 Gender: F Size Maker: : 1955 Requested By: Ruchi Ruiz Order Number: [id number] Reading MD: Opal Correa Measurements Intervals [place] Rate: 102 P: -2 TX: 152 QRS: 58 QRSD: 93 T: 48 QT: 352 QTc: 459 Interpretive Statements Sinus tachycardia Baseline wander Electronically Signed On 06-03-2018 16:24:33 EDT by Opal Correa
[2018-06-03] MEDS: *HR* Heparin 5,000 UNIT/ML VIAL SQ SCH (17:17)
[2018-06-03 17:52] LABS: Adenovirus Not Detected (Not Detect); Bordetella Pertussis Not Detected (Not Detect); Chlamydophila pneumoniae Not Detected (Not Detect); Coronavirus 229E Not Detected (Not Detect); Coronavirus HKU1 Not Detected (Not Detect); Coronavirus NL63 Not Detected (Not Detect); Coronavirus OC43 Not Detected (Not Detect); Human Metapneumovirus Not Detected (Not Detect); Human Rhinovirus/Enterovirus Not Detected (Not Detect); Influenza A Subtype 2009 H1 Not Detected (Not Detect); Influenza A Untypeable Not Detected (Not Detect); Influenza B Not Detected (Not Detect); Mycoplasma pneumoniae Not Detected (Not Detect); Parainfluenza Virus 1 Not Detected (Not Detect); Parainfluenza Virus 2 Not Detected (Not Detect); Parainfluenza Virus 3 Not Detected (Not Detect); Parainfluenza Virus 4 Not Detected (Not Detect); Respiratory Syncytial Virus Not Detected (Not Detect)
[2018-06-04] MEDS: Ipratropium/Albuterol Neb 3 ML IH SCH ×6 (03:14→23:50)
[2018-06-04] MEDS: *HR* Heparin 5,000 UNIT/ML VIAL SQ SCH ×2 (05:06→16:52)
[2018-06-04 05:33] LABS: Basophils % 0.2 %; Hematocrit 40.5 % (35.3-44.9); Hemoglobin 13.4 g/dL (11.5-15.4); Immature Granulocytes % 0.6 % (0-4); Lymphocytes # 0.8 K/mcL (0.6-4.6); Lymphocytes % 7.6 %; Mean Corpuscular HGB Conc 33.1 g/dL (31.6-35.5); Mean Corpuscular Hemoglobin 32.6 pg (28.0-33.3); Mean Corpuscular Volume 98.5 fL (83.0-100.0); Mean Platelet Volume 10.9 fL (9.4-12.4); Monocytes # 1.1 K/mcL (0.0-1.3); Monocytes % 10.1 %; Neutrophils # 8.9 K/mcL (1.6-8.9); Platelet Count 242 K/mcL (140-400); Red Blood Count 4.11 M/mcL (3.82-4.97); Red Cell Distribution Width 12.4 % (11.5-14.5); Segmented Neutrophils % 81.5 %
[2018-06-04 05:48] LABS: BUN/Creatinine Ratio 12 (6-26); Blood Urea Nitrogen 7 mg/dL (8-23); Calcium 9.3 mg/dL (8.6-10.3); Carbon Dioxide 29 mEq/L (23-29); Chloride 104 mEq/L (98-107); Glucose 127 mg/dL (70-105); Magnesium 1.9 mg/dL (1.6-2.6); Osmolality,Calculated 282 (280-300); Phosphorous 3.5 mg/dL (2.7-4.5); Potassium 3.9 mEq/L (3.5-5.1); Sodium 136 mEq/L (136-145); eGFR For Non-African Americans > 60 (> 60)
[2018-06-04] MEDS ORDERED: Famotidine 20 MG TABLET PO SCH (06:30)
[2018-06-04] MEDS: Sennosides/Docusate Sodium TABLET PO SCH ×2 (07:59→20:42)
[2018-06-04] MEDS: Nicotine 21 MG PATCH.TD24 TD SCH (07:59)
[2018-06-04] MEDS: GuaiFENesin/Dextromethorphan TABLET PO SCH ×2 (07:59→20:42)
[2018-06-04] MEDS: Furosemide 20 MG TABLET PO SCH (07:59)
[2018-06-04] MEDS: Budesonide/Formoterol 80/4.5 MDI IH SCH (08:04)
[2018-06-04] MEDS ORDERED: LIDOCAINE PO PRN (08:26)
[2018-06-04] MEDS ORDERED: NON-FORMULARY MEDICATION 1 EACH EACH (Pantoprazole Sodium [Protonix] 20 MG) PO SCH (09:00)
[2018-06-04] MEDS ORDERED: predniSONE 20 MG TABLET PO SCH (09:00)
[2018-06-04] MEDS ORDERED: Azithromycin 500 MG in D5% in Water 250 ML IVPB SCH (09:00)
[2018-06-04] MEDS ORDERED: cefTRIAXone 1,000 MG in Water for inj. (sterile) 20 ML 10 ML IVP SCH ×2 (09:00→11:00)
[2018-06-04] MEDS ORDERED: MOMETASONE FUROATE 100 mcg Inhaler IH SCH (09:00)
--- NOTE | 2018-06-04 10:35 | Internal Med Progress Note ---
Hospitalist Progress Note - Encounter Date of Encounter: 06/04/18 Time of Encounter: 10:30 - Subjective Interval History: Pt seen and examined at bedside. Pt sitting in bed and saturating well on 2.5L NC. She has underlying anxiety and remains anxious about her health and has been extremely short of breath with minimal ambulation to the bathroom. Reports of having a productive cough with green sputum. Denies any fever or chills. Reports of having a bowel movement and reports complete resolution of her abdominal pain No overnight events reported. Ten point ROS is negative except as listed above - Exam Vitals: Temp Pulse Resp BP Pulse Ox 98.7 F 88 16 160/92 92 06/04/18 07:37 06/04/18 07:37 06/04/18 07:37 06/04/18 07:37 06/04/18 07:37 Exam: General: No acute distress, AAO x 3, obese HEENT: EOMI, NC/AT, no scleral icterus Respiratory: Equal air entry bilaterally, bilateral expiratory wheezing, no rales, no accessory muscle use, tachypneic Cardiovascular: Regular, Rate, Rhythm, No murmurs GI: Soft, Non tender, non distended, normal bowel sounds Ext: No edema, no tenderness, positive pulses Neuro: AAO x 3, no focal deficits - Summary of Assessment and Plan Summary of Assessment and Plan: Patient is a 63y/o female with PMH of COPD on home oxygen who presents to the ER for management of shortness of breath and abdominal pain. 1. Acute respiratory distress secondary to COPD exacerbation will start Solumedrol 40mg IV q12h given severe dyspnea and wheezing with minimal exertion will resume Azithromycin 500mg qdaily continue bronchodilator support O2 supplementation as needed (pt reports of using 2-3L at all times at home), currently saturating well on 2L NC guaifenesin for cough respiratory viral panel negative will closely monitor respiratory status 2. Abdominal pain secondary to acute on chronic constipation resolved 3. Tobacco abuse smoking cessation counseling provided patient not ready to quit at this time nicotine supplementation therapy provided 4. HTN remains hypertensive and not on any antihypertensive medications at home will start Lisinopril 5mg PO qdaily closely monitor BP Chronic Co-morbidities: GERD, anxiety, depression continue home medications DVT ppx: Heparin SQ - Time Spent with Patient Total time spent is greater than 50% in coordination of care (as documented) at patient's floor/unit and/or counseling patient: Plan of Care Discussed with: patient (patient/RN/pharmacist/case management) Internal Medicine: Result - Labs CBC & Chem 7: 06/04/18 04:00 06/04/18 04:00 Labs: Short CBC 06/04/18 Range/Units 04:00 WBC 10.9 (4.3-11.1) K/mcL Hgb 13.4 (11.5-15.4) g/dL Hct 40.5 (35.3-44.9) % Plt Count 242 (140-400) K/mcL Neutrophils # 8.9 (1.6-8.9) K/mcL BMP 06/04/18 04:00 Sodium 136 Potassium 3.9 Chloride 104 Carbon Dioxide 29 BUN 7 L Creatinine 0.57 L Glucose 127 H Calcium 9.3 - Impressions Impressions Abdomen/Pelvis CT 06/03/18 10:20 IMPRESSION: 1. No acute intra-abdominal or intrapelvic process. 2. Minor colonic diverticulosis without evidence of diverticulitis. 3. Status post cholecystectomy. Atherosclerotic abdominal aortic calcification also noted. D/ / Lucius Castellanos MD / Lucius Castellanos MD Interpreting Provider: Lucius Castellanos MD Consult Discharge Plan - Plan Referrals: Bennie Linares [Primary Care Provider] -
[2018-06-04] MEDS: Cholecalciferol (D-3) 1,000 UNIT TABLET PO SCH (11:17)
[2018-06-04] MEDS: Loratadine 10 MG TABLET PO SCH (11:17)
[2018-06-04] MEDS: Fluticasone Propionate Nasal 50 MCG/SPRAY BOTTLE NS SCH (11:19)
[2018-06-04] MEDS: Famotidine 20 MG TABLET PO SCH (11:20)
[2018-06-04] MEDS: Azithromycin 500 MG in D5% in Water 250 ML IVPB SCH (11:25)
[2018-06-04] MEDS: MethylPREDNISolone 40 MG/ML VIAL IVP SCH (16:52)
[2018-06-05] MEDS: Acetaminophen 325 MG TABLET PO PRN ×2 (02:27→22:58)
[2018-06-05] MEDS: Melatonin 3 MG TABLET PO PRN ×2 (02:27→22:54)
[2018-06-05] MEDS: Ipratropium/Albuterol Neb 3 ML IH SCH ×6 (04:04→23:52)
[2018-06-05] MEDS: *HR* Heparin 5,000 UNIT/ML VIAL SQ SCH ×2 (06:37→17:07)
[2018-06-05] MEDS: MethylPREDNISolone 40 MG/ML VIAL IVP SCH ×2 (06:37→17:07)
[2018-06-05] MEDS: Budesonide/Formoterol 80/4.5 MDI IH SCH (07:24)
[2018-06-05] MEDS: Famotidine 20 MG TABLET PO SCH (08:13)
[2018-06-05] MEDS: Fluticasone Propionate Nasal 50 MCG/SPRAY BOTTLE NS SCH (09:59)
[2018-06-05] MEDS: Cholecalciferol (D-3) 1,000 UNIT TABLET PO SCH (10:00)
[2018-06-05] MEDS: Nicotine 21 MG PATCH.TD24 TD SCH (10:01)
[2018-06-05] MEDS: Furosemide 20 MG TABLET PO SCH (10:01)
[2018-06-05] MEDS: GuaiFENesin/Dextromethorphan TABLET PO SCH ×2 (10:01→22:54)
[2018-06-05] MEDS: Loratadine 10 MG TABLET PO SCH (10:01)
[2018-06-05] MEDS: Sennosides/Docusate Sodium TABLET PO SCH ×2 (10:02→22:54)
[2018-06-05 10:37] LABS: Basophils % 0.1 %; Hematocrit 42.5 % (35.3-44.9); Hemoglobin 13.7 g/dL (11.5-15.4); Immature Granulocytes % 0.5 % (0-4); Lymphocytes # 0.9 K/mcL (0.6-4.6); Lymphocytes % 6.4 %; Mean Corpuscular HGB Conc 32.2 g/dL (31.6-35.5); Mean Corpuscular Hemoglobin 32.2 pg (28.0-33.3); Mean Platelet Volume 12.1 fL (9.4-12.4); Monocytes # 0.9 K/mcL (0.0-1.3); Monocytes % 6.4 %; Neutrophils # 12.3 K/mcL (1.6-8.9); Platelet Count 205 K/mcL (140-400); Red Blood Count 4.25 M/mcL (3.82-4.97); Red Cell Distribution Width 12.8 % (11.5-14.5); Segmented Neutrophils % 86.6 %
[2018-06-05] MEDS: Azithromycin 500 MG in D5% in Water 250 ML IVPB SCH (10:45)
[2018-06-05 10:59] LABS: BUN/Creatinine Ratio 10 (6-26); Blood Urea Nitrogen 7 mg/dL (8-23); Calcium 9.6 mg/dL (8.6-10.3); Carbon Dioxide 28 mEq/L (23-29); Chloride 102 mEq/L (98-107); Glucose 109 mg/dL (70-105); Magnesium 1.7 mg/dL (1.6-2.6); Osmolality,Calculated 283 (280-300); Potassium 3.7 mEq/L (3.5-5.1); Sodium 137 mEq/L (136-145); eGFR For Non-African Americans > 60 (> 60)
[2018-06-05 11:19] LABS: Large Platelets Present (Not Present); Platelet Estimate Normal (Normal)
--- NOTE | 2018-06-05 12:01 | Internal Med Progress Note ---
Hospitalist Progress Note - Encounter Date of Encounter: 06/05/18 Time of Encounter: 11:26 - Subjective Interval History: Pt seen and examined at bedside. Sitting in bed and saturating well on 2L NC. States she feels better compared to previous day. Noted to have bilateral expiratory wheezing on auscultation. Also states she has not had a bowel movement since yesterday but is passing a lot of gas. Denies any abd pain, n/v, fever, or chills at this time. NO overnight events reported Ten point ROS is negative except as listed above - Exam Vitals: Temp Pulse Resp BP Pulse Ox 98.7 F 95 18 109/80 92 06/05/18 10:30 06/05/18 10:30 06/05/18 11:02 06/05/18 10:30 06/05/18 11:02 Exam: General: No acute distress, AAO x 3, obese HEENT: EOMI, NC/AT, no scleral icterus Respiratory: Equal air entry bilaterally, bilateral expiratory wheezing, no rales, no accessory muscle use, no tachypnea Cardiovascular: Regular, Rate, Rhythm, No murmurs GI: Soft, Non tender, non distended, normal bowel sounds Ext: No edema, no tenderness, positive pulses Neuro: AAO x 3, no focal deficits - Summary of Assessment and Plan Summary of Assessment and Plan: Patient is a 63y/o female with PMH of COPD on home oxygen who presents to the ER for management of shortness of breath and abdominal pain. 1. Acute respiratory distress secondary to COPD exacerbation Solumedrol 40mg IV q12h, will d/c IV steroids after tonight's dose and start Prednisone 40mg PO qdaily in am continue Azithromycin 500mg qdaily continue bronchodilator support O2 supplementation as needed (pt reports of using 2-3L at all times at home), currently saturating well on 2L NC guaifenesin for cough respiratory viral panel negative will closely monitor respiratory status 2. constipation laxative support 3. Tobacco abuse smoking cessation counseling provided patient not ready to quit at this time nicotine supplementation therapy provided 4. HTN BP within acceptable range conitnue Lisinopril 5mg PO qdaily closely monitor BP Chronic Co-morbidities: GERD, anxiety, depression continue home medications DVT ppx: Heparin SQ tentative d/c in am if remains clinically stable - Time Spent with Patient Total time spent is greater than 50% in coordination of care (as documented) at patient's floor/unit and/or counseling patient: Internal Medicine: Result - Labs CBC & Chem 7: 06/05/18 08:28 06/05/18 08:28 Labs: Short CBC 06/05/18 Range/Units 08:28 WBC 14.2 H (4.3-11.1) K/mcL Hgb 13.7 (11.5-15.4) g/dL Hct 42.5 (35.3-44.9) % Plt Count 205 (140-400) K/mcL Neutrophils # 12.3 H (1.6-8.9) K/mcL BMP 06/05/18 08:28 Sodium 137 Potassium 3.7 Chloride 102 Carbon Dioxide 28 BUN 7 L Creatinine 0.70 Glucose 109 H Calcium 9.6 Consult Discharge Plan - Plan Referrals: Bennie Linares [Primary Care Provider] -
[2018-06-05] MEDS ORDERED: MOM Conc 10 ML UD.LIQ PO ONE (22:04)
[2018-06-06] MEDS: Ipratropium/Albuterol Neb 3 ML IH SCH ×3 (03:46→11:09)
[2018-06-06] MEDS: Famotidine 20 MG TABLET PO SCH (05:46)
[2018-06-06] MEDS: *HR* Heparin 5,000 UNIT/ML VIAL SQ SCH (05:46)
[2018-06-06 06:02] LABS: Basophils % 0.1 %; Eosinophils % 0.1 %; Hematocrit 41.1 % (35.3-44.9); Hemoglobin 13.5 g/dL (11.5-15.4); Immature Granulocytes % 0.4 % (0-4); Lymphocytes # 2.2 K/mcL (0.6-4.6); Mean Corpuscular HGB Conc 32.8 g/dL (31.6-35.5); Mean Corpuscular Hemoglobin 32.4 pg (28.0-33.3); Mean Corpuscular Volume 98.6 fL (83.0-100.0); Mean Platelet Volume 11.3 fL (9.4-12.4); Monocytes # 0.8 K/mcL (0.0-1.3); Monocytes % 8.1 %; Neutrophils # 7.2 K/mcL (1.6-8.9); Platelet Count 272 K/mcL (140-400); Red Blood Count 4.17 M/mcL (3.82-4.97); Red Cell Distribution Width 12.8 % (11.5-14.5); Segmented Neutrophils % 70.3 %
[2018-06-06 06:20] LABS: BUN/Creatinine Ratio 23 (6-26); Blood Urea Nitrogen 15 mg/dL (8-23); Calcium 9.8 mg/dL (8.6-10.3); Carbon Dioxide 29 mEq/L (23-29); Chloride 103 mEq/L (98-107); Glucose 97 mg/dL (70-105); Magnesium 1.9 mg/dL (1.6-2.6); Osmolality,Calculated 291 (280-300); Potassium 3.8 mEq/L (3.5-5.1); Sodium 140 mEq/L (136-145); eGFR For Non-African Americans > 60 (> 60)
[2018-06-06] MEDS: Budesonide/Formoterol 80/4.5 MDI IH SCH (07:36)
[2018-06-06] MEDS: GuaiFENesin/Dextromethorphan TABLET PO SCH (08:10)
[2018-06-06] MEDS: Furosemide 20 MG TABLET PO SCH (08:11)
[2018-06-06] MEDS: Sennosides/Docusate Sodium TABLET PO SCH (08:11)
[2018-06-06] MEDS: Loratadine 10 MG TABLET PO SCH (08:11)
[2018-06-06] MEDS: Cholecalciferol (D-3) 1,000 UNIT TABLET PO SCH (08:11)
[2018-06-06] MEDS: Nicotine 21 MG PATCH.TD24 TD SCH (08:12)
[2018-06-06] MEDS: Fluticasone Propionate Nasal 50 MCG/SPRAY BOTTLE NS SCH (08:17)
[2018-06-06] MEDS ORDERED: predniSONE 20 MG TABLET PO SCH (09:00)
[2018-06-06] MEDS: Acetaminophen 325 MG TABLET PO PRN (11:21)
[2018-06-06 11:56] VITALS: BP 143/89
--- NOTE | 2018-06-06 12:53 | Discharge Summary ---
- NOTES TO OUTPATIENT PROVIDER Notes to Outpatient Provider: Pt was admitted for COPD exacerbation. She is being discharged on Prednisone. Pt was also noted to remain hypertensive for which she was started on Lisinopril. Pt requested Nicotine patch on discharge and is stating she is not going to smoke after her discharge from the hospital. Orders not resulted at time of discharge: Pending orders 06/03/18 07:57 Culture,Blood [BC] Stat Date of Encounter: 06/06/18 Time of Encounter: 09:54 - Discharge Diagnosis (1) Acute exacerbation of chronic obstructive airways disease Priority: Primary Status: Acute (2) HTN (hypertension) Priority: Secondary Status: Acute Qualifiers: Hypertension type: essential hypertension Qualified Code(s): I10 - Essential (primary) hypertension Hospital course: Ms. Soto is a 63 year old female with PMH of COPD on home oxygen, anxiety, tobacco abuse, GERD, bipolar disorder, depression, anxiety, s/p cholecystectomy, diverticulosis who was admitted for acute on chronic respiratory distress secondary to COPD exacerbation. Pt was started on systemic steroids and IV abx. She was also noted to be hypertensive for which she was started on Lisinopril. Pt responded well to therapy and currently is back to baseline respiratory status. Her BP is within acceptable range with initiation of Lisinopril. Pt has been transitioned to PO Prednisone. She was seen and examined on the day of discharge. Pt is medically stable for discharge to home with outpatient follow up with PCP and pulmonology. Pt demonstrates understanding of her diagnosis and agrees with the discharge care and plan. Pt requested nicotine patch upon discharge and stated she will not smoke after discharge Extensive counseling was provided in regards to the risks and adverse effects of using nicotine patch along with smoking, pt demonstrated understanding and stated she will not be smoking after her discharge from the hospital. Discharge discussed with: patient, nurse, social work, case management - Time Spent with Patient Total time spent providing and/or coordinating discharge services: Time spent: Greater than 30 minutes - Discharge Medications Prescriptions: New Nicotine Patch [Nicoderm] 21 mg TD DAILY #7 patch.td24 predniSONE [PredniSONE] 40 mg PO DAILY #4 tablet Lisinopril [Zestril] 10 mg PO DAILY #30 tablet Continue Furosemide [Lasix] 20 mg PO DAILY Ergocalciferol (VITAMIN D2) [Drisdol (50,000 Unit)] 50,000 unit PO FR Citalopram Hydrobromide [Celexa] 20 mg PO DAILY Oxygen 2 l NS CONT Potassium Chloride [Klor-Con 10] 10 meq PO DAILY Albuterol Neb [Proventil Neb] 2.5 mg IH TID PRN PRN Reason: Shortness Of Breath Calcium Carbonate/Vitamin D3 [Oyster Shell Calcium-Vit D Tab] 1 tab PO BID Cetirizine HCl [24Hour Allergy] 10 mg PO DAILY Cyclobenzaprine HCl 10 mg PO TID PRN PRN Reason: Muscle Spasm Famotidine [Pepcid] 40 mg PO DAILY Fluticasone Propionate Nasal [Flonase] 1 spray NS DAILY Pantoprazole Sodium [Protonix] 20 mg PO DAILY Tiotropium [place] [Spiriva Respimat] 2 puff IH DAILY Albuterol Sulfate [Ventolin Hfa] 4 puff IH PRN PRN PRN Reason: Shortness Of Breath hydrOXYzine HCl [Hydroxyzine HCl] 25 mg PO Q8H PRN PRN Reason: Anxiety/ ITCHING Lidocaine Viscous Oral Soln 5 ml PO QID PRN PRN Reason: ORAL SORES Home Medications: Citalopram Hydrobromide [Celexa] 20 mg PO DAILY 06/09/15 [History] Ergocalciferol (VITAMIN D2) [Drisdol (50,000 Unit)] 50,000 unit PO FR 06/09/15 [History] Furosemide [Lasix] 20 mg PO DAILY 06/09/15 [History] Oxygen 2 l NS CONT 06/24/16 [History] Potassium Chloride [Klor-Con 10] 10 meq PO DAILY 06/24/16 [History] Albuterol Neb [Proventil Neb] 2.5 mg IH TID PRN 06/03/18 [History] Albuterol Sulfate [Ventolin Hfa] 4 puff IH PRN PRN 06/03/18 [History] Calcium Carbonate/Vitamin D3 [Oyster Shell Calcium-Vit D Tab] 1 tab PO BID 06/03/18 [History] Cetirizine HCl [24Hour Allergy] 10 mg PO DAILY 06/03/18 [History] Cyclobenzaprine HCl 10 mg PO TID PRN 06/03/18 [History] Famotidine [Pepcid] 40 mg PO DAILY 06/03/18 [History] Fluticasone Propionate Nasal [Flonase] 1 spray NS DAILY 06/03/18 [History] Lidocaine Viscous Oral Soln 5 ml PO QID PRN 06/03/18 [History] Pantoprazole Sodium [Protonix] 20 mg PO DAILY 06/03/18 [History] Tiotropium [place] [Spiriva Respimat] 2 puff IH DAILY 06/03/18 [History] hydrOXYzine HCl [Hydroxyzine HCl] 25 mg PO Q8H PRN 06/03/18 [History] Lisinopril [Zestril] 10 mg PO DAILY #30 tablet 06/06/18 [Rx] Nicotine Patch [Nicoderm] 21 mg TD DAILY #7 patch.td24 06/06/18 [Rx] predniSONE [PredniSONE] 40 mg PO DAILY #4 tablet 06/06/18 [Rx] Allergies/Adverse Reactions: Allergy/AdvReac Type Severity Reaction Status Date / Time bupropion [From Wellbutrin] AdvReac Nightmare Verified 06/24/16 14:52 codeine AdvReac Hives Verified 06/24/16 14:52 gabapentin AdvReac Difficulty Verified 06/24/16 14:52 Breathing ibuprofen AdvReac Hives Verified 06/24/16 14:52 levofloxacin AdvReac Hives Verified 06/24/16 14:52 meperidine AdvReac Hives Verified 06/24/16 14:52 morphine AdvReac Hives Verified 06/24/16 14:52 naproxen AdvReac Hives Verified 06/24/16 14:52 NSAIDS (Non-Steroidal AdvReac Hives Verified 06/24/16 14:52 Anti-Inflamma Sulfa (Sulfonamide AdvReac Hives Verified 06/24/16 14:52 Antibiotics) tramadol AdvReac Difficulty Verified 06/24/16 14:52 Breathing Varenicline AdvReac Hives Verified 06/24/16 14:52 Date of admission: 06/03/18 14:02 Primary care physician: Bennie Linares Consults: 06/03/18 10:27 Consult to Invasive Line Access Team [CONS] Routine Reason for Consult: difficult access Line Type: EPIV 06/04/18 14:44 Consult to Nurse Navigator [CONS] Routine Comment: copd Discharging clinician: Camryn Alexis Anticipated date of discharge: 06/06/18 - Constitutional Vitals: Temp Pulse Resp BP Pulse Ox 97.6 F 96 18 143/89 92 06/06/18 11:07 06/06/18 11:07 06/06/18 11:10 06/06/18 11:55 06/06/18 11:10 Exam: General: No acute distress, AAO x 3, obese HEENT: EOMI, NC/AT, no scleral icterus Respiratory: Equal air entry bilaterally, no wheezing, no rales, no accessory muscle use, no tachypnea Cardiovascular: Regular, Rate, Rhythm, No murmurs GI: Soft, Non tender, non distended, normal bowel sounds Ext: No edema, no tenderness, positive pulses Neuro: AAO x 3, no focal deficits - Patient Status Disposition: Home, Self-Care Condition: Fair Functional capacity at discharge: independent ambulation Overall status at discharge: patient is back to baseline - Discharge Instructions Instructions: Constipation (DC), Chronic Obstructive Pulmonary Disease (DC) Follow Up With: Bennie Linares [Primary Care Provider] - (Please call for hospital follow up) Additional Instructions: 1. Please follow up with your primary care physician within five days after your discharge from the hospital. 2. Please follow up with pulmonology within one week after your discharge from the hospital. 3. Please continue Prednisone as prescribed. 4. Lisinopril 10mg once a day has been added to your home medications 5. Please seek medical help if you have difficulty breathing or if chest pain occurs. 6. Please resume all your home medications as prescribed by your primary care physician. 7. Do NOT SMOKE AFTER YOUR DISCHARGE FROM THE HOSPITAL. - Diet and Activity Activity: resume usual activities as tolerated, wear oxygen at all times Diet: low fat, low cholesterol, low salt diet
--- NOTE | 2018-06-06 13:54 | Physician Discharge Referral ---
Home Health/Hosp Referral Info Transfer to: Home Health Provider in Charge Post Discharge: PCP - Diagnosis (1) Acute exacerbation of chronic obstructive airways disease Priority: Primary Status: Acute (2) HTN (hypertension) Priority: Secondary Status: Acute - Respiratory Orders Smoking Cessation: Smoking cessation has been advised. For more information, call the [place] Tobacco Quit Line at 3-997-VQZM-NOW. - Services Needed Following services are medically necessary services: Nursing, Home Health Aide, Physical Therapy, Occupational Therapy - Transfer Medications Prescriptions: Lisinopril [Zestril] 10 mg PO DAILY #30 tablet Nicotine Patch [Nicoderm] 21 mg TD DAILY #7 patch.td24 predniSONE [PredniSONE] 40 mg PO DAILY #4 tablet Home Medications: Citalopram Hydrobromide [Celexa] 20 mg PO DAILY 06/09/15 [History] Ergocalciferol (VITAMIN D2) [Drisdol (50,000 Unit)] 50,000 unit PO FR 06/09/15 [History] Furosemide [Lasix] 20 mg PO DAILY 06/09/15 [History] Oxygen 2 l NS CONT 06/24/16 [History] Potassium Chloride [Klor-Con 10] 10 meq PO DAILY 06/24/16 [History] Albuterol Neb [Proventil Neb] 2.5 mg IH TID PRN 06/03/18 [History] Albuterol Sulfate [Ventolin Hfa] 4 puff IH PRN PRN 06/03/18 [History] Calcium Carbonate/Vitamin D3 [Oyster Shell Calcium-Vit D Tab] 1 tab PO BID 06/03/18 [History] Cetirizine HCl [24Hour Allergy] 10 mg PO DAILY 06/03/18 [History] Cyclobenzaprine HCl 10 mg PO TID PRN 06/03/18 [History] Famotidine [Pepcid] 40 mg PO DAILY 06/03/18 [History] Fluticasone Propionate Nasal [Flonase] 1 spray NS DAILY 06/03/18 [History] Lidocaine Viscous Oral Soln 5 ml PO QID PRN 06/03/18 [History] Pantoprazole Sodium [Protonix] 20 mg PO DAILY 06/03/18 [History] Tiotropium [place] [Spiriva Respimat] 2 puff IH DAILY 06/03/18 [History] hydrOXYzine HCl [Hydroxyzine HCl] 25 mg PO Q8H PRN 06/03/18 [History] Lisinopril [Zestril] 10 mg PO DAILY #30 tablet 06/06/18 [Rx] Nicotine Patch [Nicoderm] 21 mg TD DAILY #7 patch.td24 06/06/18 [Rx] predniSONE [PredniSONE] 40 mg PO DAILY #4 tablet 06/06/18 [Rx] Allergies/Adverse Reactions: Allergy/AdvReac Type Severity Reaction Status Date / Time bupropion [From Wellbutrin] AdvReac Nightmare Verified 06/24/16 14:52 codeine AdvReac Hives Verified 06/24/16 14:52 gabapentin AdvReac Difficulty Verified 06/24/16 14:52 Breathing ibuprofen AdvReac Hives Verified 06/24/16 14:52 levofloxacin AdvReac Hives Verified 06/24/16 14:52 meperidine AdvReac Hives Verified 06/24/16 14:52 morphine AdvReac Hives Verified 06/24/16 14:52 naproxen AdvReac Hives Verified 06/24/16 14:52 NSAIDS (Non-Steroidal AdvReac Hives Verified 06/24/16 14:52 Anti-Inflamma Sulfa (Sulfonamide AdvReac Hives Verified 06/24/16 14:52 Antibiotics) tramadol AdvReac Difficulty Verified 06/24/16 14:52 Breathing Varenicline AdvReac Hives Verified 06/24/16 14:52 Certification: Further, I certify that my clinical findings support that this patient is homebound (i.e. absences from home require considerable and taxing effort and are for medical reasons or muslim services or infrequently or short duration when for other reasons) because: Homebound Reason: Patient requires assistance of a person or device to safely leave home Attestation: My signature below is to certify that this patient is under my care and that I, or nurse practitioner, or a physician's automotive parts counter assistant working with me, has a [id number] encounter with this patient.
== END 2018-06-06 13:15 | disposition home or self-care (01) ==
LOC: 2ANU 07:29 → EMEROOARM 07:29 → SUATTDRO 14:02 → 2ANU 14:35
PROVIDERS: ADMIT Internal Medicine; ATTEND Internal Medicine

== ENCOUNTER 2018-08-07 09:26 | Observation (INO) ==
--- NOTE | 2018-08-07 09:35 | Emergency Department Note ---
Disposition Clinical Impression: COPD with acute exacerbation, Vertigo, Left-sided chest pain Asthma with exacerbation Qualifiers: Asthma severity: unspecified severity Asthma persistence: persistent Qualified Code(s): J45.901 - Unspecified asthma with (acute) exacerbation Disposition: Admitted As Inpatient Condition: Good Time of Disposition: 10:27 SOB HPI - General Chief Complaint: ED Shortness of Breath/Dyspnea Stated Complaint: general, HAIR Time Seen by Provider: 08/07/18 09:33 Source: patient Mode of arrival: ambulatory Limitations: no limitations Nursing Notes Reviewed: Yes Vital Signs Reviewed: Yes - History of Present Illness 63-year-old female past medical history of asthma, COPD, CHF, diabetes, hepatitis C presenting for one day history of gradually progressive and worsening shortness of breath as well as dizziness, or difficulties with ambulation. Patient states when she awoke this morning that she "just did not feel right" she said that she had some dizziness and some disequilibrium when she was ambulating and needed to hold the wall for assistance upon ambulating to the bathroom. Patient states that she noticed that she was not breathing correctly and was developing progressive dyspnea. Patient states that that time that she had a mild dull chest pain which lasted 4 minutes and resolved by the time that she called 911 and the ambulance arrived. Patient states that she is currently experiencing dyspnea but is not conversationally dyspneic, she is alert and oriented, nontoxic without focal neurological deficits. Pt Subjective Complaint: shortness of breath, cough, chest pain Onset (ago): day(s) Severity: moderate Consistency/Duration: gradually worsening Improves with: oxygen, bronchodilators, medication Worsens with: exertion Known history of: COPD, asthma, congestive heart failure Associated symptoms: Reports: chest pain, cough, wheezing Treatment prior to arrival: none Cough present: No - Related Data Home Medications Medication Instructions Recorded Confirmed Citalopram Hydrobromide [Celexa] 20 mg PO DAILY 06/09/15 08/07/18 Ergocalciferol (VITAMIN D2) 50,000 unit PO FR 06/09/15 08/07/18 [Drisdol (50,000 Unit)] Furosemide [Lasix] 20 mg PO DAILY 06/09/15 08/07/18 Oxygen 2 l NS CONT 06/24/16 06/03/18 Potassium Chloride [Klor-Con 10] 10 meq PO DAILY 06/24/16 08/07/18 Albuterol Neb [Proventil Neb] 2.5 mg IH TID PRN 06/03/18 08/07/18 Albuterol Sulfate [Ventolin Hfa] 2 puff IH Q6H PRN 06/03/18 08/07/18 Calcium Carbonate/Vitamin D3 1 tab PO BID 06/03/18 08/07/18 [Oyster Shell Calcium-Vit D Tab] Cetirizine HCl [24Hour Allergy] 10 mg PO DAILY 06/03/18 08/07/18 Cyclobenzaprine HCl 10 mg PO TID PRN 06/03/18 08/07/18 Famotidine [Pepcid] 40 mg PO DAILY 06/03/18 08/07/18 Fluticasone Propionate Nasal 1 spray NS DAILY 06/03/18 08/07/18 [Flonase] Lidocaine Viscous Oral Soln 5 ml PO QID PRN 06/03/18 06/03/18 Pantoprazole Sodium [Protonix] 20 mg PO DAILY 06/03/18 08/07/18 Tiotropium [place] [Spiriva 2 puff IH DAILY 06/03/18 08/07/18 Respimat] hydrOXYzine HCl [Hydroxyzine HCl] 25 mg PO Q8H PRN 06/03/18 06/03/18 Previous Rx's Medication Instructions Recorded Lisinopril [Zestril] 10 mg PO DAILY #30 tablet 06/06/18 Nicotine Patch [Nicoderm] 21 mg TD DAILY #7 patch.[id number] 06/06/18 Azithromycin [Azithromycin 6-Tab 250 mg PO PER PKG DI #6 tab 08/08/18 Pack] Budesonide/Formoterol 160/4.5 2 puff IH BIDR #1 hfa.aer.ad 08/08/18 [Symbicort 160/4.5] Allergies Allergy/AdvReac Type Severity Reaction Status Date / Time bupropion [From Wellbutrin] AdvReac Nightmare Verified 06/24/16 14:52 codeine AdvReac Hives Verified 06/24/16 14:52 gabapentin AdvReac Difficulty Verified 06/24/16 14:52 Breathing ibuprofen AdvReac Hives Verified 06/24/16 14:52 levofloxacin AdvReac Hives Verified 06/24/16 14:52 meperidine AdvReac Hives Verified 06/24/16 14:52 morphine AdvReac Hives Verified 06/24/16 14:52 naproxen AdvReac Hives Verified 06/24/16 14:52 NSAIDS (Non-Steroidal AdvReac Hives Verified 06/24/16 14:52 Anti-Inflamma Sulfa (Sulfonamide AdvReac Hives Verified 06/24/16 14:52 Antibiotics) tramadol AdvReac Difficulty Verified 06/24/16 14:52 Breathing Varenicline AdvReac Hives Verified 06/24/16 14:52 Review of Systems: *See History of Present Illness for more detail Constitutional: Denies: fever, chills Cardiovascular: Admits chest pain Respiratory: Admits dyspnea, denies: cough, hemoptysis Gastrointestinal: Denies: abdominal pain, nausea, vomiting, diarrhea, constipation, hematemesis, melena, hematochezia Genitourinary: Denies: hematuria Musculoskeletal: Denies: back pain, neck pain Neurological: Admits: Lightheadedness/dizziness, difficulty with ambulation. Denies: headache, weakness, numbness, paresthesias Endocrine: Denies: fatigue All systems ED: reviewed and negative except as stated. Review of Systems: As Per HPI Past Medical History - Past Medical History Medical history: Reports: asthma, COPD, GERD, other Surgical history: Reports: cholecystectomy, knee replacement, other Psychiatric history: Reports: anxiety, bipolar, depression WORKERS' COMPENSATION MAGISTRATE history: Reports: no WORKERS' COMPENSATION MAGISTRATE history - Social History Smoking Status: Current every day smoker Smokeless Tobacco Status: No Alcohol use: Reports: occasionally Drug use: Reports: none Physical Exam Constitutional: Moderate respiratory distress, otherwise [id number], engaged to conversation, speech is fluid, answers questions appropriately Neuro: GCS 15, no overt focal neurological deficits Head: Atraumatic, normocephalic Eyes: Pupils equal, round and reactive to light, no scleral icterus, no conjunctival injection Neck: Trachea midline without deviation. Anterior neck is supple without swelling. *Chest: Symmetric chest wall rise *Heart: Cardiac rhythm and rate are regular with S1 and S2 , no S3 or S4 appreciated, no murmurs, gallops, rubs, or clicks. *Lungs: Decreased tidal volume of respiration, there is accessory muscle use with prolonged expiratory phase. Lungs are otherwise clear to auscultation potentially due to decreased volumes. Abdomen: Abdomen is flat, soft to palpation, normal bowel sounds. No abdominal bruit auscultated. Non-distended, non-rigid, no organomegaly, no ascites appre ciated. No pulsatile mass, no tenderness or guarding to palpation in all four quadrants, no rebound Extremities: Normal capillary refill without evidence of pedal edema, joint swelling or erythema. Pulses/motor/sensory intact in all 4 extremities. Psychiatric exam: Patient displays a normal affect and mood for the environment. No overt signs of hallucination. Integumentary: warm, dry, intact, normal color. No rash, cyanosis, diaphoresis, erythema, or pallor - General General appearance: alert, in no apparent distress Course Course Narrative: Differential diagnosis includes but is not limited to. -CHF -COPD -Asthma exacerbation -Myocardial ischemia -Pneumonia Tests: CBC, BMP, EKG/old EKG, troponin, BNP, chest x-ray 2 view, urinalysis Treatments: DuoNeb's, oxygen, steroids - Reevaluation(s) Reevaluation #1: Patient continuing to complain of dizziness, does not tolerate Jackson-Hallpike technique well, however patient's disequilibrium is fatigable. We will give 25 mg by mouth meclizine CT scan of the head without contrast for further evaluation. Vital Signs Temperature 98.3 F 08/07/18 09:28 Pulse Rate 99 08/07/18 09:28 Respiratory Rate 18 08/07/18 09:28 Blood Pressure 123/100 08/07/18 09:28 O2 Sat by Pulse Oximetry 100 08/07/18 09:28 Temperature 98.9 F 08/08/18 08:18 Pulse Rate 80 08/08/18 08:18 Respiratory Rate 16 08/08/18 08:18 Blood Pressure 126/76 08/08/18 08:18 O2 Sat by Pulse Oximetry 91 08/08/18 08:18 Oxygen Delivery Oxygen Delivery Nasal Cannula Shortness of Breath/Dyspnea - [facility] Narrative Medical decision making narrative: EKG, laboratory and imaging results are negative for acute pathology Patient states she is feeling much better breathing after DuoNeb nebs and steroids here in the ED Patient continues to complain of dizziness We will admit patient to hospitalist medicine service for ACS rule out in the setting of COPD exacerbation with lightheadedness and difficulties with ambulation. Patient verbalizes understanding and agreement with this plan. - Lab Data Lab results reviewed: Yes I reviewed the patient's lab results. Result diagrams: 08/08/18 04:31 08/08/18 04:31 Lab Results 08/07/18 08/07/18 08/07/18 Range/Units 09:57 09:57 09:57 WBC 9.7 (4.3-11.1) K/mcL RBC 4.17 (3.82-4.97) M/mcL Hgb 13.4 (11.5-15.4) g/dL Hct 39.3 (35.3-44.9) % MCV 94.2 (83.0-100.0) fL MCH 32.1 (28.0-33.3) pg MCHC 34.1 (31.6-35.5) g/dL RDW 13.7 (11.5-14.5) % Plt Count 214 (140-400) K/mcL MPV 10.4 (9.4-12.4) fL Immature Gran % 0.2 (0-4) % Seg Neutrophils % 76.7 % Lymphocytes % 12.5 % Monocytes % 9.9 % Eosinophils % 0.5 % Basophils % 0.2 % Neutrophils # 7.4 (1.6-8.9) K/mcL Lymphocytes # 1.2 (0.6-4.6) K/mcL Monocytes # 1.0 (0.0-1.3) K/mcL Eosinophils # 0.1 (0.0-0.6) K/mcL Basophils # 0.0 (0.0-0.2) K/mcL Sodium 136 (136-145) mEq/L Potassium 3.7 (3.5-5.1) mEq/L Chloride 102 (98-107) mEq/L Carbon Dioxide 27 (23-29) mEq/L BUN 9 (8-23) mg/dL Creatinine 0.59 L (0.60-1.20) mg/dL Est GFR ( Amer) > 60 (> 60) Est GFR (Non-Af Amer) > 60 (> 60) BUN/Creatinine Ratio 15 (6-26) Glucose 100 (70-105) mg/dL Calculated Osmolality 281 (280-300) Calcium 9.2 (8.6-10.3) mg/dL Troponin I < 0.03 (< 0.04) ng/mL B-Natriuretic Peptide 71 (Less than 100) pg/mL Urine Color (Yellow) Urine Clarity (Clear) Urine pH (5.0-8.0) pH Units Ur Specific [place] (1.010-1.025) Urine Protein (Neg-Trace) mg/dL Urine Glucose (UA) (Normal) mg/dL Urine Ketones (Negative) mg/dL Urine Blood (Negative) Urine Nitrite (Negative) Urine Bilirubin (Negative) Urine Urobilinogen (Normal) mg/dL Ur Leukocyte Esterase (Negative) Ur Culture Indicated? (NO) 08/07/18 Range/Units 10:12 WBC (4.3-11.1) K/mcL RBC (3.82-4.97) M/mcL Hgb (11.5-15.4) g/dL Hct (35.3-44.9) % MCV (83.0-100.0) fL MCH (28.0-33.3) pg MCHC (31.6-35.5) g/dL RDW (11.5-14.5) % Plt Count (140-400) K/mcL MPV (9.4-12.4) fL Immature Gran % (0-4) % Seg Neutrophils % % Lymphocytes % % Monocytes % % Eosinophils % % Basophils % % Neutrophils # (1.6-8.9) K/mcL Lymphocytes # (0.6-4.6) K/mcL Monocytes # (0.0-1.3) K/mcL Eosinophils # (0.0-0.6) K/mcL Basophils # (0.0-0.2) K/mcL Sodium (136-145) mEq/L Potassium (3.5-5.1) mEq/L Chloride (98-107) mEq/L Carbon Dioxide (23-29) mEq/L BUN (8-23) mg/dL Creatinine (0.60-1.20) mg/dL Est GFR ( Amer) (> 60) Est GFR (Non-Af Amer) (> 60) BUN/Creatinine Ratio (6-26) Glucose (70-105) mg/dL Calculated Osmolality (280-300) Calcium (8.6-10.3) mg/dL Troponin I (< 0.04) ng/mL B-Natriuretic Peptide (Less than 100) pg/mL Urine Color Yellow (Yellow) Urine Clarity Clear (Clear) Urine pH 6.5 (5.0-8.0) pH Units Ur Specific [place] 1.013 (1.010-1.025) Urine Protein Negative (Neg-Trace) mg/dL Urine Glucose (UA) Normal (Normal) mg/dL Urine Ketones Negative (Negative) mg/dL Urine Blood Negative (Negative) Urine Nitrite Negative (Negative) Urine Bilirubin Negative (Negative) Urine Urobilinogen Normal (Normal) mg/dL Ur Leukocyte Esterase Negative (Negative) Ur Culture Indicated? NO (NO) - Radiology Data Radiology results reviewed: Yes I reviewed the patient's radiology results. Chest X-Ray 08/07/18 09:35 IMPRESSION: 1. No acute radiographic abnormality in the chest. D/ / Alfonso Blanco MD / Alfonso Blanco MD Interpreting Provider: Alfonso Blanco MD Head CT 08/07/18 10:09 IMPRESSION: No acute intracranial abnormality. D/ / Hari Ramesh MD / Hari Ramesh MD Interpreting Provider: Hari Ramesh MD - EKG Data EKG attestation: Yes I reviewed and interpreted this EKG. EKG results narrative: Patient EKG shows sinus rhythm with a heart rate of 95 bpm, HI interval of 139 ms, QRS duration of 85 ms, QT/QTc interval 345/434 ms respectively. There are no significant ST segment elevations, depressions, pathologic Q waves, abnormal T-wave inversions, or any other signs of acute ischemic change. EKG performed today is generally consistent with prior EKG performed on 06/03/2018. Patient developing chest pain. Repeat EKG shows a sinus tachycardia with a heart of 100 bpm, HI interval of 165 ms, chemistries and V2 most extremities, QT/QTc interval 345/445 ms respectively. There are still no acute ST segment elevations, depressions, pathologic Q waves, abnormal T-wave inversions, or any signs of acute ischemic change. EKG remains consistent with prior. Attestation Statement - Attestation Attestation: I have seen this patient with the resident physician, I have personally evaluated this patient. I had reviewed the chart and document dictation by the resident physician and aM in agreement with the information documented by the resident physician. Please see documentation by the resident physician for complete chart including past medical history, family medical history, review of systems, current history and physical and laboratory and imaging studies. I was present for all procedures, provided direct supervision for all procedures, was present for the entirety of all procedures and provided direct guidance during the procedures. Please see documentation by the resident physician for any procedures performed. I have reviewed all interpretations of EKGs, and reviewed all EKGs performed on patient's as well. I have also reviewed reports of imaging as provided by radiology.
[2018-08-07] MEDS ORDERED: Ipratropium/Albuterol Neb 3 ML IH ONE (10:01)
[2018-08-07] MEDS ORDERED: methylPREDNISolone 125 MG/2 ML VIAL IVP ONE (10:02)
[2018-08-07 10:13] LABS: Basophils % 0.2 %; Eosinophils # 0.1 K/mcL (0.0-0.6); Eosinophils % 0.5 %; Hematocrit 39.3 % (35.3-44.9); Hemoglobin 13.4 g/dL (11.5-15.4); Immature Granulocytes % 0.2 % (0-4); Lymphocytes # 1.2 K/mcL (0.6-4.6); Lymphocytes % 12.5 %; Mean Corpuscular HGB Conc 34.1 g/dL (31.6-35.5); Mean Corpuscular Hemoglobin 32.1 pg (28.0-33.3); Mean Corpuscular Volume 94.2 fL (83.0-100.0); Mean Platelet Volume 10.4 fL (9.4-12.4); Monocytes % 9.9 %; Neutrophils # 7.4 K/mcL (1.6-8.9); Platelet Count 214 K/mcL (140-400); Red Blood Count 4.17 M/mcL (3.82-4.97); Red Cell Distribution Width 13.7 % (11.5-14.5); Segmented Neutrophils % 76.7 %
[2018-08-07] MEDS ORDERED: Ondansetron 4 MG/2 ML VIAL IVP ONE (10:18)
--- NOTE | 2018-08-07 10:18 | Emergency Department Note ---
Disposition Clinical Impression: Asthma with exacerbation, COPD with acute exacerbation, Vertigo, Left-sided chest pain Disposition: Admitted As Inpatient Condition: Fair Forms: ED Satisfaction Letter Time of Disposition: 13:12 General Adult HPI - General Chief complaint: ED Shortness of Breath/Dyspnea Stated complaint: general, HAIR Time Seen by Provider: 08/07/18 09:33 Nursing Notes Reviewed: Yes Vital Signs Reviewed: Yes - History of Present Illness Pain Scale: 0 - Related Data Home Medications Medication Instructions Recorded Confirmed Citalopram Hydrobromide [Celexa] 20 mg PO DAILY 06/09/15 06/03/18 Ergocalciferol (VITAMIN D2) 50,000 unit PO FR 06/09/15 06/03/18 [Drisdol (50,000 Unit)] Furosemide [Lasix] 20 mg PO DAILY 06/09/15 06/03/18 Oxygen 2 l NS CONT 06/24/16 06/03/18 Potassium Chloride [Klor-Con 10] 10 meq PO DAILY 06/24/16 06/03/18 Albuterol Neb [Proventil Neb] 2.5 mg IH TID PRN 06/03/18 06/03/18 Albuterol Sulfate [Ventolin Hfa] 4 puff IH PRN PRN 06/03/18 06/03/18 Calcium Carbonate/Vitamin D3 1 tab PO BID 06/03/18 06/03/18 [Oyster Shell Calcium-Vit D Tab] Cetirizine HCl [24Hour Allergy] 10 mg PO DAILY 06/03/18 06/03/18 Cyclobenzaprine HCl 10 mg PO TID PRN 06/03/18 06/03/18 Famotidine [Pepcid] 40 mg PO DAILY 06/03/18 06/03/18 Fluticasone Propionate Nasal 1 spray NS DAILY 06/03/18 06/03/18 [Flonase] Lidocaine Viscous Oral Soln 5 ml PO QID PRN 06/03/18 06/03/18 Pantoprazole Sodium [Protonix] 20 mg PO DAILY 06/03/18 06/03/18 Tiotropium [place] [Spiriva 2 puff IH DAILY 06/03/18 06/03/18 Respimat] hydrOXYzine HCl [Hydroxyzine HCl] 25 mg PO Q8H PRN 06/03/18 06/03/18 Previous Rx's Medication Instructions Recorded Lisinopril [Zestril] 10 mg PO DAILY #30 tablet 06/06/18 Nicotine Patch [Nicoderm] 21 mg TD DAILY #7 patch.td24 06/06/18 predniSONE [PredniSONE] 40 mg PO DAILY #4 tablet 06/06/18 Allergies Allergy/AdvReac Type Severity Reaction Status Date / Time bupropion [From Wellbutrin] AdvReac Nightmare Verified 06/24/16 14:52 codeine AdvReac Hives Verified 06/24/16 14:52 gabapentin AdvReac Difficulty Verified 06/24/16 14:52 Breathing ibuprofen AdvReac Hives Verified 06/24/16 14:52 levofloxacin AdvReac Hives Verified 06/24/16 14:52 meperidine AdvReac Hives Verified 06/24/16 14:52 morphine AdvReac Hives Verified 06/24/16 14:52 naproxen AdvReac Hives Verified 06/24/16 14:52 NSAIDS (Non-Steroidal AdvReac Hives Verified 06/24/16 14:52 Anti-Inflamma Sulfa (Sulfonamide AdvReac Hives Verified 06/24/16 14:52 Antibiotics) tramadol AdvReac Difficulty Verified 06/24/16 14:52 Breathing Varenicline AdvReac Hives Verified 06/24/16 14:52 Past Medical History - Past Medical History Medical history: Reports: asthma, COPD, GERD, other Surgical history: Reports: cholecystectomy, knee replacement, other Psychiatric history: Reports: anxiety, bipolar, depression [employer] history: Reports: no [employer] history - Social History Smoking Status: Current every day smoker Smokeless Tobacco Status: No Alcohol use: Reports: occasionally Drug use: Reports: none Physical Exam - General General appearance: alert, in no apparent distress Course Vital Signs Temperature 98.3 F 08/07/18 09:28 Pulse Rate 99 08/07/18 09:28 Respiratory Rate 18 08/07/18 09:28 Blood Pressure 123/100 08/07/18 09:28 O2 Sat by Pulse Oximetry 100 08/07/18 09:28 Temperature 98.3 F 08/07/18 09:28 Pulse Rate 95 08/07/18 12:19 Respiratory Rate 17 08/07/18 12:19 Blood Pressure 125/68 08/07/18 12:19 O2 Sat by Pulse Oximetry 94 08/07/18 12:19 Oxygen Delivery Oxygen Delivery Nasal Cannula Medical Decision Making - Lab Data Result diagrams: 08/07/18 09:57 08/07/18 09:57 Lab Results 08/07/18 08/07/18 08/07/18 Range/Units 09:57 09:57 09:57 WBC 9.7 (4.3-11.1) K/mcL RBC 4.17 (3.82-4.97) M/mcL Hgb 13.4 (11.5-15.4) g/dL Hct 39.3 (35.3-44.9) % MCV 94.2 (83.0-100.0) fL MCH 32.1 (28.0-33.3) pg MCHC 34.1 (31.6-35.5) g/dL RDW 13.7 (11.5-14.5) % Plt Count 214 (140-400) K/mcL MPV 10.4 (9.4-12.4) fL Immature Gran % 0.2 (0-4) % Seg Neutrophils % 76.7 % Lymphocytes % 12.5 % Monocytes % 9.9 % Eosinophils % 0.5 % Basophils % 0.2 % Neutrophils # 7.4 (1.6-8.9) K/mcL Lymphocytes # 1.2 (0.6-4.6) K/mcL Monocytes # 1.0 (0.0-1.3) K/mcL Eosinophils # 0.1 (0.0-0.6) K/mcL Basophils # 0.0 (0.0-0.2) K/mcL Sodium 136 (136-145) mEq/L Potassium 3.7 (3.5-5.1) mEq/L Chloride 102 (98-107) mEq/L Carbon Dioxide 27 (23-29) mEq/L BUN 9 (8-23) mg/dL Creatinine 0.59 L (0.60-1.20) mg/dL Est GFR ( Amer) > 60 (> 60) Est GFR (Non-Af Amer) > 60 (> 60) BUN/Creatinine Ratio 15 (6-26) Glucose 100 (70-105) mg/dL Calculated Osmolality 281 (280-300) Calcium 9.2 (8.6-10.3) mg/dL Troponin I < 0.03 (< 0.04) ng/mL B-Natriuretic Peptide 71 (Less than 100) pg/mL Urine Color (Yellow) Urine Clarity (Clear) Urine pH (5.0-8.0) pH Units Ur Specific [place] (1.010-1.025) Urine Protein (Neg-Trace) mg/dL Urine Glucose (UA) (Normal) mg/dL Urine Ketones (Negative) mg/dL Urine Blood (Negative) Urine Nitrite (Negative) Urine Bilirubin (Negative) Urine Urobilinogen (Normal) mg/dL Ur Leukocyte Esterase (Negative) Ur Culture Indicated? (NO) 08/07/18 Range/Units 10:12 WBC (4.3-11.1) K/mcL RBC (3.82-4.97) M/mcL Hgb (11.5-15.4) g/dL Hct (35.3-44.9) % MCV (83.0-100.0) fL MCH (28.0-33.3) pg MCHC (31.6-35.5) g/dL RDW (11.5-14.5) % Plt Count (140-400) K/mcL MPV (9.4-12.4) fL Immature Gran % (0-4) % Seg Neutrophils % % Lymphocytes % % Monocytes % % Eosinophils % % Basophils % % Neutrophils # (1.6-8.9) K/mcL Lymphocytes # (0.6-4.6) K/mcL Monocytes # (0.0-1.3) K/mcL Eosinophils # (0.0-0.6) K/mcL Basophils # (0.0-0.2) K/mcL Sodium (136-145) mEq/L Potassium (3.5-5.1) mEq/L Chloride (98-107) mEq/L Carbon Dioxide (23-29) mEq/L BUN (8-23) mg/dL Creatinine (0.60-1.20) mg/dL Est GFR ( Amer) (> 60) Est GFR (Non-Af Amer) (> 60) BUN/Creatinine Ratio (6-26) Glucose (70-105) mg/dL Calculated Osmolality (280-300) Calcium (8.6-10.3) mg/dL Troponin I (< 0.04) ng/mL B-Natriuretic Peptide (Less than 100) pg/mL Urine Color Yellow (Yellow) Urine Clarity Clear (Clear) Urine pH 6.5 (5.0-8.0) pH Units Ur Specific [place] 1.013 (1.010-1.025) Urine Protein Negative (Neg-Trace) mg/dL Urine Glucose (UA) Normal (Normal) mg/dL Urine Ketones Negative (Negative) mg/dL Urine Blood Negative (Negative) Urine Nitrite Negative (Negative) Urine Bilirubin Negative (Negative) Urine Urobilinogen Normal (Normal) mg/dL Ur Leukocyte Esterase Negative (Negative) Ur Culture Indicated? NO (NO) Attestation Statement - Attestation Attestation: I have seen this patient with the resident physician, I have personally evaluated this patient. I had reviewed the chart and document dictation by the resident physician and aM in agreement with the information documented by the gonzalez kumar physician. Please see documentation by the resident physician for complete chart including past medical history, family medical history, review of systems, current history and physical and laboratory and imaging studies. I was present for all procedures, provided direct supervision for all procedures, was present for the entirety of all procedures and provided direct guidance during the procedures. Please see documentation by the resident physician for any procedures performed. I have reviewed all interpretations of EKGs, and reviewed all EKGs performed on patient's as well. I have also reviewed reports of imaging as provided by radiology. Patient presented to the emergency department with several complaints, primary complaint was of dizziness, she states that she got up this morning seemed okay she took all her medications, which includes a new blood pressure medication th at she was started on after recent hospitalization, she states that slightly thereafter she was giving really go to the bathroom she was walking to the bathroom when she became acutely dizzy states it felt like a spinning but a little bit like she might pass out. She went to the bathroom sat down finished going to the bathroom when she stood up she still felt very dizzy. She became acutely nauseated. She states she got very clammy also developed a brief episode of left-sided chest discomfort and heaviness and became short of breath as well. She states that she is post where oxygen but her oxygen tubing and supplies or scattered all over the place because of her roommate and she was not wearing this. The patient states that she still feels dizzy she states it is primarily spinning sensation, it is definitely worse when she turns her head to the right, when specifically asked on exam to do so she notes that she had not tried that but definitely worse when she turns her head to the right. She denies headache. She denies focal numbness or weakness speech difficulty or vision changes. She denies abdominal pain or palpitations. The patient denies headache. She denies history of vertigo. She denies any recent significant illnesses nasal congestion runny nose or ear pressure. On exam, she has positive horizontal nystagmus with rightward gaze, she has negative hints testing, however positive [place] with her head turned to the right, she had significant nystagmus, significant onset of symptoms, with fatigability, with focus on my face. She has normal pupils normal cranial nerves point no pronator drift. Lungs reveal diminished breath sounds diffusely bilaterally. There is diffuse wheezing as well. No focal adventitious sounds. Cardiovascular regular rate and rhythm no murmurs rubs or gallops equal pulses in all 4 extremities, no peripheral edema no JVD. Abdomen soft and nontender. Normal strength sensation and reflexes in all 4 extremities. Skin is slightly clammy, however no rash or petechia. EKG was performed which was a normal sinus rhythm, no evidence of acute ST elevation or ST depression T-wave inversion. Nonspecific ST segment abnormality inferior leads with some slight downsloping, but when compared to EKG from 06/03/2018 there is no change. No QT prolongation QTc is 434 no evidence of hyperkalemia. Chest x-ray was ordered. Patient was given IV steroids, breathing treatments, by mouth meclizine, and IV Zofran for her symptoms. Cardiac workup was initiated chest x-ray was initiated, head CT was ordered for dizziness, however clinically this seems highly consistent with benign positional vertigo. Head CT is interpreted by radiology showed no evidence of acute findings. Chest x-ray as interpreted by radiology showed no evidence of significant acute abnormality. Basic laboratory studies were within acceptable limits. Patient expresses improvement of her symptoms with breathing treatments, Zofran, steroids, and meclizine, however patient presented with sudden onset of dizziness with left-sided chest pain shortness of breath diaphoresis and nausea, she has had no recent cardiac evaluation, and I feel patient would benefit for admission to the hospital for further evaluation and management of her symptoms, in relation to her episodic chest discomfort, but also clinically for admission for COPD exacerbation as well. Patient was given 1 dose of aspirin as well.
[2018-08-07 10:28] LABS: Bilirubin,Urine Negative (Negative); Blood,Urine Negative (Negative); Clarity,Urine Clear (Clear); Color,Urine Yellow (Yellow); Glucose,Urine (UA) Normal (Normal); Ketones,Urine Negative (Negative); Leukocyte Esterase,Urine Negative (Negative); Nitrite,Urine Negative (Negative); PH,Urine 6.5 pH Units (5.0-8.0); Protein,Urine Negative (Neg-Trace); Specific Gravity,Urine 1.013 (1.010-1.025); Urobilinogen,Urine Normal (Normal)
[2018-08-07 10:33] LABS: BUN/Creatinine Ratio 15 (6-26); Blood Urea Nitrogen 9 mg/dL (8-23); Calcium 9.2 mg/dL (8.6-10.3); Carbon Dioxide 27 mEq/L (23-29); Chloride 102 mEq/L (98-107); Glucose 100 mg/dL (70-105); Osmolality,Calculated 281 (280-300); Potassium 3.7 mEq/L (3.5-5.1); Sodium 136 mEq/L (136-145); eGFR For Non-African Americans > 60 (> 60)
[2018-08-07 10:34] LABS: Troponin I < 0.03 ng/mL (< 0.04)
[2018-08-07] MEDS ORDERED: Aspirin 81 MG TAB.CHEW PO ONE (13:15)
[2018-08-07] MEDS ORDERED: Ondansetron 4 MG/2 ML VIAL IVP PRN (15:43)
[2018-08-07] MEDS ORDERED: Naloxone 0.4 MG/ML INJ IVP PRN (15:43)
--- NOTE | 2018-08-07 16:09 | Internal Med History&Physical ---
Date of Encounter: 08/07/18 Time of Encounter: 14:55 Internal Medicine - H&P: HPI Chief complaint: dizziness Admitted From: Home Plans for Post Hospital Care: Home History of present illness: Ms. Soto is a 63 year old female with PMH of COPD on home oxygen (3L), anxiety, tobacco abuse, GERD, bipolar disorder, depression, anxiety, s/p cholecystectomy, diverticulosis who presents to the ER for evaluation of dizziness. Patient states she was in her usual state of health until this morning. She states she took her morning medications, and went to the bathroom without oxygen. As she came out of the bathroom, she started feeling cold and clammy and dizzy. She reports of putting her oxygen back on but continued to feel unsteady and had an acute onset of dull diffuse chest pain that last a few seconds and spontaneously resolved. Due to these symptoms she called 911 and came to the ER. She states she just got refills of the lisinopril a couple of days ago and these pills are of different shape than her last month's lisinopril dose. She has been taking lisinopril for over a month without any discomfort. Pt has severe anxiety at baseline and reports of having quarrels with her roommate and is looking for other housing options. In the ER, pt received IV steroids, meclizine. She received two doses of meclizine in the ER and currently is asymptomatic. Reports complete resolution of dizziness, lightheadedness, chest pain, sob. She states she feels well at this time. She continues to be an every day smoker (smoking one ppd) Ten point ROS is negative except as listed above. Past Med Surg Social Fam HX - Past Medical History Medical history: asthma, COPD, GERD, other Additional medical history: emphysema, bipolar, insomnia, hepatits C, DJD, HLD, Rotator cuff tear, left lateral malleolar fx, carptal tunnel, fibromyalgia, DDD, tinnitis, hearing loss, gout, alcohol abuse, pancreatitis, eczema, uterine fibroids, breast lump, diverticulitis, [place] idiopathic, Rosacea, contatct dermatitis.on Home oxygen. Psychiatric history: anxiety, bipolar, depression - Past Surgical History Surgical History: cholecystectomy, knee replacement, other Additional surgical history: colonoscopy with polypectomy, hyperplastic, s houlder surgery, knee surgery, hernia repair,. breast reduction, sinus surgery - Social History Smoking Status: Current every day smoker Smokeless Tobacco Status: No Alcohol use: occasionally Drug use: none - Family History Father Adopted: No Hx Family Cardiac Disorders: Yes Hx Family Respiratory Disorders: Yes Hx Family Cancer: Yes Hx Family GI Disorders: No Hx Family Endocrine Disorder: No Hx Family Neuromuscular Disorders: No Hx Family Neurologic Disorders: No Hx Family HEENT Disorders: No Hx Family Autoimmune Disorders: No Internal Medicine - H&P: Meds Citalopram Hydrobromide [Celexa] 20 mg PO DAILY 06/09/15 [History] Ergocalciferol (VITAMIN D2) [Drisdol (50,000 Unit)] 50,000 unit PO FR 06/09/15 [History] Furosemide [Lasix] 20 mg PO DAILY 06/09/15 [History] Oxygen 2 l NS CONT 06/24/16 [History] Potassium Chloride [Klor-Con 10] 10 meq PO DAILY 06/24/16 [History] Albuterol Neb [Proventil Neb] 2.5 mg IH TID PRN 06/03/18 [History] Albuterol Sulfate [Ventolin Hfa] 4 puff IH PRN PRN 06/03/18 [History] Calcium Carbonate/Vitamin D3 [Oyster Shell Calcium-Vit D Tab] 1 tab PO BID 06/03/18 [History] Cetirizine HCl [24Hour Allergy] 10 mg PO DAILY 06/03/18 [History] Cyclobenzaprine HCl 10 mg PO TID PRN 06/03/18 [History] Famotidine [Pepcid] 40 mg PO DAILY 06/03/18 [History] Fluticasone Propionate Nasal [Flonase] 1 spray NS DAILY 06/03/18 [History] Lidocaine Viscous Oral Soln 5 ml PO QID PRN 06/03/18 [History] Pantoprazole Sodium [Protonix] 20 mg PO DAILY 06/03/18 [History] Tiotropium [place] [Spiriva Respimat] 2 puff IH DAILY 06/03/18 [History] hydrOXYzine HCl [Hydroxyzine HCl] 25 mg PO Q8H PRN 06/03/18 [History] Lisinopril [Zestril] 10 mg PO DAILY #30 tablet 06/06/18 [Rx] Nicotine Patch [Nicoderm] 21 mg TD DAILY #7 patch.td24 06/06/18 [Rx] Allergy/AdvReac Type Severity Reaction Status Date / Time bupropion [From Wellbutrin] AdvReac Nightmare Verified 06/24/16 14:52 codeine AdvReac Hives Verified 06/24/16 14:52 gabapentin AdvReac Difficulty Verified 06/24/16 14:52 Breathing ibuprofen AdvReac Hives Verified 06/24/16 14:52 levofloxacin AdvReac Hives Verified 06/24/16 14:52 meperidine AdvReac Hives Verified 06/24/16 14:52 morphine AdvReac Hives Verified 06/24/16 14:52 naproxen AdvReac Hives Verified 06/24/16 14:52 NSAIDS (Non-Steroidal AdvReac Hives Verified 06/24/16 14:52 Anti-Inflamma Sulfa (Sulfonamide AdvReac Hives Verified 06/24/16 14:52 Antibiotics) tramadol AdvReac Difficulty Verified 06/24/16 14:52 Breathing Varenicline AdvReac Hives Verified 06/24/16 14:52 All Systems PM: A 10-system review of systems was performed and is negative for pertinent findings except as documented above in the HPI. Review of systems: Ten point ROS is negative except as listed in HPI - Constitutional Vitals: Temp Pulse Resp BP Pulse Ox 99.3 F 91 16 114/72 92 08/07/18 15:07 08/07/18 15:07 08/07/18 15:07 08/07/18 15:07 08/07/18 15:07 Exam: General: No acute distress, AAO x 3 HEENT: EOMI, PERRLA, NC/AT, no scleral icterus Respiratory: Clear to auscultate bilaterally, no wheezing, no rales Cardiovascular: Regular, Rate, Rhythm, No murmurs GI: Soft, Non tender, non distended, normal bowel sounds Ext: No edema, no tenderness, positive pulses Neuro: AAO x 3, no focal deficits, Rest of the clinical exam is noncontributory Internal Med - H&P Results - Labs CBC & Chem 7: 08/07/18 09:57 08/07/18 09:57 Labs: Short CBC 08/07/18 Range/Units 09:57 WBC 9.7 (4.3-11.1) K/mcL Hgb 13.4 (11.5-15.4) g/dL Hct 39.3 (35.3-44.9) % Plt Count 214 (140-400) K/mcL Neutrophils # 7.4 (1.6-8.9) K/mcL BMP 08/07/18 09:57 Sodium 136 Potassium 3.7 Chloride 102 Carbon Dioxide 27 BUN 9 Creatinine 0.59 L Glucose 100 Calcium 9.2 Cardiac Enzymes 08/07/18 Range/Units 09:57 Troponin I < 0.03 (< 0.04) ng/mL Urine 08/07/18 Range/Units 10:12 Urine Color Yellow (Yellow) Urine Clarity Clear (Clear) Urine pH 6.5 (5.0-8.0) pH Units Ur Specific [place] 1.013 (1.010-1.025) Urine Protein Negative (Neg-Trace) mg/dL Urine Glucose (UA) Normal (Normal) mg/dL - Impressions ITS Impressions Chest X-Ray 08/07/18 09:35 IMPRESSION: 1. No acute radiographic abnormality in the chest. D/ / Alfonso Blanco MD / Alfonso Blanco MD Interpreting Provider: Alfonso Blanco MD Head CT 08/07/18 10:09 IMPRESSION: No acute intracranial abnormality. D/ / Hari Ramesh MD / Hari Ramesh MD Interpreting Provider: Hari Ramesh MD - Summary of Assessment and Plan Summary of Assessment and Plan: Ms. Soto is a 63 year old female with PMH of COPD on home oxygen (3L), anxiety, tobacco abuse, GERD, bipolar disorder, depression, anxiety, s/p cholecystectomy, diverticulosis who presents to the ER for evaluation of dizziness. Assessment/Plan: 1. Dizziness Unlikely vertigo, likely related to hypoxia as pt was not wearing oxygen support at the time of onset vs. drug induced hypotension only one time episode reported, no positional correlation reported will closely monitor at this time CT head negative continue O2 support closely monitor BP will obtain orthostatic vitals if remains asymptomatic, tentative d/c in am hold BP meds for SBP<100 2. Chest pain unlikely ACS will monitor serial TNI f/u 2D echo pt received a dose of Aspirin in the ER no EKG changes reported 3. Tobacco abuse smoking cessation counseling provided pt not ready to quit at this time smoking cessation supplementation provided 4. COPD not in acute exacerbation pt saturating well on 2L NC and is on 3L NC at home will continue home meds bronchodilator support as needed 5. HTN BP within acceptable range continue to closely monitor hold BP meds for SBP<100 Labs and vitals reviewed restarted home meds as necessary DVT ppx: Heparin SQ LOS < 2 midnights Care plan discussed with patient/RN - Time Spent With Patient Total time spent is greater than 50% in coordination of care (as documented) at patient's floor/unit and/or counseling patient: 25 - 35 minutes
[2018-08-07] MEDS: Nicotine 21 MG PATCH.TD24 TD SCH (16:47)
[2018-08-07] MEDS: *HR* Heparin 5,000 UNIT/ML VIAL SQ SCH (16:48)
[2018-08-07] MEDS: Ipratropium/Albuterol Neb 3 ML IH SCH (19:59)
[2018-08-07] MEDS ORDERED: Perflutren Lipid Microsphere 1.3 ML in 0.9 % Sodium Chloride 8.7 ML IVP ONE (20:09)
[2018-08-08] MEDS ORDERED: Melatonin 3 MG TABLET PO PRN (00:35)
[2018-08-08] MEDS: Ipratropium/Albuterol Neb 3 ML IH SCH ×4 (04:18→11:04)
[2018-08-08] MEDS: *HR* Heparin 5,000 UNIT/ML VIAL SQ SCH (05:03)
[2018-08-08 05:28] LABS: Basophils % 0.2 %; Eosinophils % 0.1 %; Hematocrit 38.7 % (35.3-44.9); Hemoglobin 12.9 g/dL (11.5-15.4); Immature Granulocytes % 0.5 % (0-4); Lymphocytes # 0.7 K/mcL (0.6-4.6); Lymphocytes % 6.7 %; Mean Corpuscular HGB Conc 33.3 g/dL (31.6-35.5); Mean Corpuscular Hemoglobin 31.7 pg (28.0-33.3); Mean Corpuscular Volume 95.1 fL (83.0-100.0); Mean Platelet Volume 10.9 fL (9.4-12.4); Monocytes # 0.8 K/mcL (0.0-1.3); Monocytes % 8.4 %; Neutrophils # 8.2 K/mcL (1.6-8.9); Platelet Count 208 K/mcL (140-400); Red Blood Count 4.07 M/mcL (3.82-4.97); Red Cell Distribution Width 13.6 % (11.5-14.5); Segmented Neutrophils % 84.1 %
[2018-08-08 05:49] LABS: BUN/Creatinine Ratio 19 (6-26); Blood Urea Nitrogen 12 mg/dL (8-23); Calcium 9.5 mg/dL (8.6-10.3); Carbon Dioxide 30 mEq/L (23-29); Chloride 102 mEq/L (98-107); Chol/HDL Ratio 2.3 (0-4.9); Cholesterol 200 mg/dL (< 200); Glucose 126 mg/dL (70-105); HDL Cholesterol 88 mg/dL (40-59); LDL Cholesterol,Calculated 101 mg/dL (0-99); Magnesium 2.1 mg/dL (1.6-2.6); Osmolality,Calculated 291 (280-300); Phosphorous 3.3 mg/dL (2.7-4.5); Potassium 4.1 mEq/L (3.5-5.1); Sodium 140 mEq/L (136-145); Triglycerides 53 mg/dL (< 150); eGFR For Non-African Americans > 60 (> 60)
--- NOTE | 2018-08-08 06:19 | Electrocardiograph Report ---
[place] [facility] Test Date: 2018-08-07 Pat Name: Mariaelena Soto Department: EXAM8 Room: 3B54 Gender: F Loading Manager: : [id number] Requested By: Narinder Monaco Order Number: [id number] Reading MD: Kimo Blanco Measurements Intervals Purchase Rate: 95 P: 26 [place]: 139 QRS: 66 QRSD: 85 T: 71 QT: 345 QTc: 434 Interpretive Statements Sinus rhythm Minimal ST depression, lateral leads Electronically Signed On 08-08-2018 6:17:57 EDT by Kimo Blanco
[2018-08-08 08:24] VITALS: BP 126/76
[2018-08-08] MEDS ORDERED: Acetaminophen 325 MG TABLET PO PRN (08:58)
[2018-08-08] MEDS ORDERED: Famotidine 20 MG TABLET PO SCH (09:00)
[2018-08-08] MEDS ORDERED: Furosemide 20 MG TABLET PO SCH (09:00)
[2018-08-08] MEDS ORDERED: Loratadine 10 MG TABLET PO SCH (09:00)
[2018-08-08] MEDS ORDERED: Fluticasone Propionate Nasal 50 MCG/SPRAY BOTTLE NS SCH (09:00)
[2018-08-08] MEDS: Nicotine 21 MG PATCH.TD24 TD SCH (09:05)
--- NOTE | 2018-08-08 09:57 | Discharge Summary ---
- NOTES TO OUTPATIENT PROVIDER Notes to Outpatient Provider: Follow up with PCP in one week. Please quit smoking. Follow-up with pulmonary in 2 to 3 weeks. Date of Encounter: 08/08/18 Time of Encounter: 09:00 - Discharge Diagnosis (1) Acute bronchitis Priority: Primary Status: Acute Qualifiers: Bronchitis organism: unspecified organism Qualified Code(s): J20.9 - Acute bronchitis, unspecified (2) Dizziness Priority: Primary Status: Acute (3) COPD with acute exacerbation Priority: Primary Status: Acute (4) HTN (hypertension) Priority: Secondary Status: Acute Qualifiers: Hypertension type: essential hypertension Qualified Code(s): I10 - Essential (primary) hypertension (5) Tobacco abuse Priority: Secondary Status: Chronic (6) Chronic respiratory failure with hypoxia Priority: Secondary Status: Acute Hospital course: Ms. Soto is a 63 year old female with PMH of COPD on home oxygen (3L), anxiety, chronic tobacco dependence, GERD, bipolar disorder, depression, anxiety, s/p cholecystectomy, diverticulosis who presented to the ER for evaluation of dizziness and SOB. She also c/o cough with yellowish expectoration. Patient states she went to the bathroom without oxygen, as she came out of the bathroom, she started feeling cold and clammy and dizzy. She reports of putting her oxygen back on but continued to feel unsteady and had an acute onset of dull diffuse chest pain that last a few seconds and spontaneously resolved. 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 Her serial troponin came back as negative. She denied any more active chest pain. She is breathing comfortably on 2.5 lit O2 now. She still have cough with expectoration and mild to moderate dyspnea on exertion. I did educational guidance counselor the patient quit smoking. Started her on short course of systemic steroids, as well as inhaler steroids Symbicort. Since patient does have purulent bronchitis gave her prescription for Z pack. Will discharge him home in a stable condition today. - Time Spent with Patient Total time spent providing and/or coordinating discharge services: - Discharge Medications Prescriptions: New Azithromycin [Azithromycin 6-Tab Pack] 250 mg PO PER PKG DI #6 tab predniSONE [PredniSONE] 40 mg PO DAILY 5 Days #10 tablet Budesonide/Formoterol 160/4.5 [Symbicort 160/4.5] 2 puff IH BIDR #1 hfa.aer.ad Continued Furosemide [Lasix] 20 mg PO DAILY Ergocalciferol (VITAMIN D2) [Drisdol (50,000 Unit)] 50,000 unit PO FR Citalopram Hydrobromide [Celexa] 20 mg PO DAILY Oxygen 2 l NS CONT Potassium Chloride [Klor-Con 10] 10 meq PO DAILY Albuterol Neb [Proventil Neb] 2.5 mg IH TID PRN PRN Reason: Shortness Of Breath Calcium Carbonate/Vitamin D3 [Oyster Shell Calcium-Vit D Tab] 1 tab PO BID Cetirizine HCl [24Hour Allergy] 10 mg PO DAILY Cyclobenzaprine HCl 10 mg PO TID PRN PRN Reason: Muscle Spasm Famotidine [Pepcid] 40 mg PO DAILY Fluticasone Propionate Nasal [Flonase] 1 spray NS DAILY Pantoprazole Sodium [Protonix] 20 mg PO DAILY Tiotropium Gilbert [Spiriva Respimat] 2 puff IH DAILY Albuterol Sulfate [Ventolin Hfa] 2 puff IH Q6H PRN PRN Reason: Shortness Of Breath hydrOXYzine HCl [Hydroxyzine HCl] 25 mg PO Q8H PRN PRN Reason: Anxiety/ ITCHING Lidocaine Viscous Oral Soln 5 ml PO QID PRN PRN Reason: ORAL SORES Nicotine Patch [Nicoderm] 21 mg TD DAILY #7 patch.td24 Lisinopril [Zestril] 10 mg PO DAILY #30 tablet Home Medications: Citalopram Hydrobromide [Celexa] 20 mg PO DAILY 06/09/15 [History] Ergocalciferol (VITAMIN D2) [Drisdol (50,000 Unit)] 50,000 unit PO FR 06/09/15 [History] Furosemide [Lasix] 20 mg PO DAILY 06/09/15 [History] Oxygen 2 l NS CONT 06/24/16 [History] Potassium Chloride [Klor-Con 10] 10 meq PO DAILY 06/24/16 [History] Albuterol Neb [Proventil Neb] 2.5 mg IH TID PRN 06/03/18 [History] Albuterol Sulfate [Ventolin Hfa] 2 puff IH Q6H PRN 06/03/18 [History] Calcium Carbonate/Vitamin D3 [Oyster Shell Calcium-Vit D Tab] 1 tab PO BID 06/03/18 [History] Cetirizine HCl [24Hour Allergy] 10 mg PO DAILY 06/03/18 [History] Cyclobenzaprine HCl 10 mg PO TID PRN 06/03/18 [History] Famotidine [Pepcid] 40 mg PO DAILY 06/03/18 [History] Fluticasone Propionate Nasal [Flonase] 1 spray NS DAILY 06/03/18 [History] Lidocaine Viscous Oral Soln 5 ml PO QID PRN 06/03/18 [History] Pantoprazole Sodium [Protonix] 20 mg PO DAILY 06/03/18 [History] Tiotropium Gilbert [Spiriva Respimat] 2 puff IH DAILY 06/03/18 [History] hydrOXYzine HCl [Hydroxyzine HCl] 25 mg PO Q8H PRN 06/03/18 [History] Lisinopril [Zestril] 10 mg PO DAILY #30 tablet 06/06/18 [Rx] Nicotine Patch [Nicoderm] 21 mg TD DAILY #7 patch.td24 06/06/18 [Rx] Azithromycin [Azithromycin 6-Tab Pack] 250 mg PO PER PKG DI #6 tab 08/08/18 [Rx] Budesonide/Formoterol 160/4.5 [Symbicort 160/4.5] 2 puff IH BIDR #1 hfa.aer.ad 08/08/18 [Rx] predniSONE [PredniSONE] 40 mg PO DAILY 5 Days #10 tablet 08/08/18 [Rx] Allergies/Adverse Reactions: Allergy/AdvReac Type Severity Reaction Status Date / Time bupropion [From Wellbutrin] AdvReac Nightmare Verified 06/24/16 14:52 codeine AdvReac Hives Verified 06/24/16 14:52 gabapentin AdvReac Difficulty Verified 06/24/16 14:52 Breathing ibuprofen AdvReac Hives Verified 06/24/16 14:52 levofloxacin AdvReac Hives Verified 06/24/16 14:52 meperidine AdvReac Hives Verified 06/24/16 14:52 morphine AdvReac Hives Verified 06/24/16 14:52 naproxen AdvReac Hives Verified 06/24/16 14:52 NSAIDS (Non-Steroidal AdvReac Hives Verified 06/24/16 14:52 Anti-Inflamma Sulfa (Sulfonamide AdvReac Hives Verified 06/24/16 14:52 Antibiotics) tramadol AdvReac Difficulty Verified 06/24/16 14:52 Breathing Varenicline AdvReac Hives Verified 06/24/16 14:52 Date of admission: 08/07/18 14:27 Primary care physician: Tae Hodgson MD - Constitutional Vitals: Temp Pulse Resp BP Pulse Ox 98.9 F 80 16 126/76 91 08/08/18 08:18 08/08/18 08:18 08/08/18 08:18 08/08/18 08:18 08/08/18 08:18 General appearance: Present: cooperative, A&O X 3, no acute distress, answers questions appropriately Exam: Gen: Alert, awake, Oriented to time,place and person Chest: Diminished breath sounds B/L, mild to moderate wheezing, No crackles, No rales Heart: S1S2+ No murmurs Abd: Soft, NT, RRR, BS +, No organomegaly Ext: No edema, pulses are palpable, No calf tenderness Neuro : No acute focal neuro deficits noticed Skin: No rash. - Patient Status Disposition: Home, Self-Care Condition: Good Overall status at discharge: patient is back to baseline - Discharge Instructions Follow Up With: Bennie Linares [Resident] - 08/12/18 3:00 pm Rigoberto Rodriguez MD [Partnered Physician] - - Diet and Activity Activity: increase activity as tolerated, wear oxygen at all times Diet: low salt diet
--- NOTE | 2018-08-12 13:50 | Electrocardiograph Report ---
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
== END 2018-08-08 11:33 | disposition home or self-care (01) ==
LOC: EMEROOARM 09:26 → 3BNU 09:26 → SUATTDRO 14:27 → 3BNU 14:53
PROVIDERS: ADMIT Internal Medicine Nephrology; ATTEND Family Medicine

== ENCOUNTER 2019-07-16 20:26 | Observation (INO) ==
[2019-07-16 22:12] LABS: Basophils % 0.6 %; Eosinophils # 0.2 K/mcL (0.0-0.6); Eosinophils % 2.3 %; Hematocrit 37.9 % (35.3-44.9); Hemoglobin 12.8 g/dL (11.5-15.4); Lymphocytes # 1.2 K/mcL (0.6-4.6); Lymphocytes % 16.7 %; Mean Corpuscular HGB Conc 33.8 g/dL (31.6-35.5); Mean Corpuscular Hemoglobin 34.6 pg (28.0-33.3); Mean Corpuscular Volume 102.4 fL (83.0-100.0); Mean Platelet Volume 9.8 fL (9.4-12.4); Monocytes % 14.5 %; Neutrophils # 4.6 K/mcL (1.6-8.9); Platelet Count 244 K/mcL (140-400); Red Cell Distribution Width 12.5 % (11.5-14.5); Segmented Neutrophils % 64.9 %; White Blood Count 7.1 K/mcL (4.3-11.1)
[2019-07-16] MEDS ORDERED: *HR* FentaNYL (PF) 100 MCG/2 ML VIAL IVP ONE (22:19)
[2019-07-16] MEDS ORDERED: *HR* HYDROmorphone (PF) 1 MG/ML SYRINGE IVP ONE (22:27)
[2019-07-16 22:32] LABS: BUN/Creatinine Ratio 15 (6-26); Blood Urea Nitrogen 16 mg/dL (8-23); Calcium 8.9 mg/dL (8.6-10.3); Carbon Dioxide 25 mEq/L (23-29); Chloride 102 mEq/L (98-107); Glucose 124 mg/dL (70-105); Osmolality,Calculated 271 (280-300); Potassium 4.4 mEq/L (3.5-5.1); Sodium 129 mEq/L (136-145); eGFR For African Americans > 60 (> 60); eGFR For Non-African Americans 52 (> 60)
[2019-07-16] MEDS ORDERED: Naloxone 0.4 MG/ML INJ IVP PRN (23:23)
[2019-07-16] MEDS ORDERED: Ondansetron 4 MG/2 ML VIAL IVP PRN (23:23)
[2019-07-16] MEDS ORDERED: 0.9 % Sodium Chloride 1,000 ML IVC SCH (23:30)
[2019-07-16] MEDS ORDERED: Albuterol 2.5 MG/3 ML NEBULIZER IH PRN (23:55)
[2019-07-16] MEDS ORDERED: Nicotine 14 MG PATCH.TD24 TD PRN (23:55)
[2019-07-17 01:46] LABS: Hematocrit 37.5 % (35.3-44.9); Hemoglobin 12.7 g/dL (11.5-15.4); Mean Corpuscular HGB Conc 33.9 g/dL (31.6-35.5); Mean Corpuscular Hemoglobin 34.8 pg (28.0-33.3); Mean Corpuscular Volume 102.7 fL (83.0-100.0); Mean Platelet Volume 10.3 fL (9.4-12.4); Platelet Count 247 K/mcL (140-400); Red Blood Count 3.65 M/mcL (3.82-4.97); Red Cell Distribution Width 12.5 % (11.5-14.5); White Blood Count 9.9 K/mcL (4.3-11.1)
[2019-07-17 02:09] LABS: Alanine Aminotransferase 46 Units/L (7-52); Albumin 3.9 g/dL (3.5-5.7); Albumin/Globulin Ratio 1.3 (1.1-2.2); Alkaline Phosphatase 44 Units/L (34-104); Aspartate Amino Transferase 49 Units/L (13-39); BUN/Creatinine Ratio 19 (6-26); Bilirubin,Total 0.4 mg/dL (0.3-1.0); Blood Urea Nitrogen 16 mg/dL (8-23); Calcium 8.9 mg/dL (8.6-10.3); Carbon Dioxide 22 mEq/L (23-29); Chloride 99 mEq/L (98-107); Glucose 128 mg/dL (70-105); Osmolality,Calculated 277 (280-300); Potassium 4.2 mEq/L (3.5-5.1); Sodium 132 mEq/L (136-145); Total Protein 6.9 g/dL (6.4-8.9); eGFR For African Americans > 60 (> 60); eGFR For Non-African Americans > 60 (> 60)
[2019-07-17] MEDS ORDERED: *HR* Heparin 5,000 UNIT/ML VIAL SQ ONE (06:00)
[2019-07-17] MEDS ORDERED: lisinopriL 10 MG TABLET PO SCH (09:00)
[2019-07-17] MEDS ORDERED: Loratadine 10 MG TABLET PO SCH (09:00)
[2019-07-17] MEDS ORDERED: Fluticasone Propionate Nasal 50 MCG/SPRAY BOTTLE NS SCH (09:00)
[2019-07-17] MEDS ORDERED: Famotidine 20 MG TABLET PO SCH (09:00)
[2019-07-17] MEDS ORDERED: Tiotropium 18 MCG inhalation IH SCH (10:00)
[2019-07-17] MEDS ORDERED: *HR* Propofol 200 MG/20 ML VIAL IVP ONE (12:47)
[2019-07-17] MEDS ORDERED: *HR* Midazolam HCl 2 MG/2 ML VIAL ONE (12:47)
[2019-07-17] MEDS ORDERED: Ondansetron 4 MG/2 ML VIAL ONE (12:48)
[2019-07-17] MEDS ORDERED: Dexamethasone 4 MG/ML VIAL ONE (12:48)
[2019-07-17] MEDS ORDERED: Lidocaine -MPF 2% 2 ML VIAL ONE (12:48)
[2019-07-17] MEDS ORDERED: Ropivacaine/PF 0.5% 30 ML VIAL ONE (13:26)
[2019-07-17] MEDS ORDERED: ROPIVACAINE/PF/NS 0.25% 1 EACH SYRINGE INTRAART ONE (13:27)
[2019-07-17] MEDS ORDERED: Ethanol\\Acetic Acid\\Na Ace\\Ben 1,000 ML IRRIG.SOLN IR ONE (13:29)
[2019-07-17] MEDS ORDERED: *HR* FentaNYL (PF) 100 MCG/2 ML VIAL ONE (13:41)
[2019-07-17] MEDS ORDERED: *HR* Succinylcholine 200 MG/10 ML VIAL IVP ONE (13:41)
[2019-07-17] MEDS ORDERED: CeFAZolin Syr 2,000MG/20 ML 2,000 MG/20 ML SYRINGE IVPB ONE (14:30)
[2019-07-17] MEDS ORDERED: *HR* Labetalol 20 MG/4 ML SYRINGE IVP PRN (14:59)
[2019-07-17] MEDS ORDERED: *HR* Promethazine 25 MG/ML VIAL IVP PRN ×2 (14:59→16:08)
[2019-07-17] MEDS ORDERED: *HR* HYDROmorphone PF 0.5 MG/0.5 ML SYRINGE IVP PRN (14:59)
[2019-07-17] MEDS ORDERED: Cholecalciferol (D-3) 1,000 UNIT (25MCG) TABLET PO SCH (15:15)
[2019-07-17] MEDS ORDERED: Nicotine 14 MG PATCH.TD24 TD PRN (16:08)
[2019-07-17] MEDS ORDERED: MOM Conc 10 ML UD.LIQ PO PRN (16:08)
[2019-07-17] MEDS ORDERED: Ringers Solution, Lactated 1,000 ML IVC SCH (16:08)
[2019-07-17] MEDS ORDERED: Ondansetron 4 MG/2 ML VIAL IVP PRN ×2 (16:08)
[2019-07-17] MEDS ORDERED: Naloxone 0.4 MG/ML INJ IVP PRN ×2 (16:08)
[2019-07-17] MEDS ORDERED: Sennosides 8.6 MG TABLET PO PRN (16:08)
[2019-07-17] MEDS ORDERED: *HR* OxyCODONE/APAP 5/325 TABLET PO PRN (16:08)
[2019-07-17 16:22] LABS: Hematocrit 40.2 % (35.3-44.9); Hemoglobin 13.1 g/dL (11.5-15.4)
[2019-07-17] MEDS ORDERED: Furosemide 20 MG/2 ML VIAL IVP ONE (17:35)
[2019-07-17] MEDS: Albuterol 2.5 MG/3 ML NEBULIZER IH PRN ×2 (17:35→20:22)
[2019-07-17 17:50] LABS: ABG Base Excess 3 mEq/L (-2 to 3); ABG HCO3 30 mEq/L (21-27); ABG Oxygen Saturation 89 % (95-98); ABG PCO2 55 mmHg (35-45); ABG PH 7.34 pH Units (7.32-7.45); ABG PO2 61 mmHg (85-104); ABG TCO2 32 mEq/L (20-26)
[2019-07-17] MEDS: Budesonide/Formoterol 160/4.5 1 PUFF INH IH SCH (20:22)
[2019-07-17] MEDS ORDERED: Pregabalin 50 MG CAPSULE PO SCH (21:00)
[2019-07-17] MEDS ORDERED: Spironolactone 25 MG TABLET PO SCH (21:00)
[2019-07-17] MEDS ORDERED: Budesonide/Formoterol 160/4.5 1 PUFF INH IH SCH (22:00)
[2019-07-17] MEDS: ceFAZolin 2,000 MG in 0.9 % Sodium Chloride 100 ML IVPB SCH (22:32)
[2019-07-17] MEDS: Pregabalin 50 MG CAPSULE PO SCH (22:33)
[2019-07-17] MEDS: Spironolactone 25 MG TABLET PO SCH (22:33)
[2019-07-18] MEDS: *HR* OxyCODONE Immed Rel 5 MG TABLET PO PRN ×2 (00:13→05:16)
[2019-07-18 02:00] LABS: Hematocrit 36.3 % (35.3-44.9); Hemoglobin 12.1 g/dL (11.5-15.4)
[2019-07-18 02:01] LABS: Basophils % 0.1 %; Hematocrit 36.5 % (35.3-44.9); Hemoglobin 11.9 g/dL (11.5-15.4); Immature Granulocytes % 0.5 % (0-4); Lymphocytes # 0.5 K/mcL (0.6-4.6); Lymphocytes % 5.2 %; Mean Corpuscular HGB Conc 32.6 g/dL (31.6-35.5); Mean Corpuscular Hemoglobin 33.2 pg (28.0-33.3); Mean Platelet Volume 10.3 fL (9.4-12.4); Monocytes # 0.7 K/mcL (0.0-1.3); Monocytes % 8.2 %; Neutrophils # 7.4 K/mcL (1.6-8.9); Platelet Count 238 K/mcL (140-400); Red Blood Count 3.58 M/mcL (3.82-4.97); White Blood Count 8.6 K/mcL (4.3-11.1)
[2019-07-18 02:18] LABS: BUN/Creatinine Ratio 12 (6-26); Blood Urea Nitrogen 9 mg/dL (8-23); Calcium 8.6 mg/dL (8.6-10.3); Carbon Dioxide 26 mEq/L (23-29); Chloride 96 mEq/L (98-107); Glucose 135 mg/dL (70-105); Magnesium 1.8 mg/dL (1.6-2.6); Osmolality,Calculated 273 (280-300); Phosphorous 2.8 mg/dL (2.7-4.5); Potassium 4.1 mEq/L (3.5-5.1); Sodium 131 mEq/L (136-145); eGFR For African Americans > 60 (> 60); eGFR For Non-African Americans > 60 (> 60)
[2019-07-18] MEDS: ceFAZolin 2,000 MG in 0.9 % Sodium Chloride 100 ML IVPB SCH (04:47)
[2019-07-18 06:57] VITALS: BP 122/73
[2019-07-18] MEDS ORDERED: Famotidine 20 MG TABLET PO SCH (07:30)
[2019-07-18] MEDS: Budesonide/Formoterol 160/4.5 1 PUFF INH IH SCH (07:46)
[2019-07-18] MEDS ORDERED: Isovue-370 500 ML BOTTLE IVP ONE (08:52)
[2019-07-18] MEDS ORDERED: Loratadine 10 MG TABLET PO SCH (09:00)
[2019-07-18] MEDS ORDERED: Azithromycin 500 MG in 0.9 % Sodium Chloride 250 ML IVPB SCH (09:00)
[2019-07-18] MEDS ORDERED: cefTRIAXone 1,000 MG in Water for inj. (sterile) 10 ML IVP SCH (09:00)
[2019-07-18] MEDS ORDERED: Cholecalciferol (D-3) 1,000 UNIT (25MCG) TABLET PO SCH (09:00)
[2019-07-18] MEDS ORDERED: Fluticasone Propionate Nasal 50 MCG/SPRAY BOTTLE NS SCH (09:00)
[2019-07-18] MEDS ORDERED: ARIPiprazole 5 MG TABLET PO SCH ×2 (09:00)
[2019-07-18] MEDS: Pregabalin 50 MG CAPSULE PO SCH (09:05)
[2019-07-18] MEDS: Spironolactone 25 MG TABLET PO SCH (09:06)
[2019-07-18] MEDS ORDERED: Tiotropium 18 MCG inhalation IH SCH (10:00)
== END 2019-07-18 09:20 | disposition home health service (06) ==
LOC: EMEROOARM 20:26 → 3NENU 20:26
PROVIDERS: ADMIT Student in an Organized Health Care Education/Training Program; ATTEND Student in an Organized Health Care Education/Training Program

== ENCOUNTER 2019-10-07 17:47 | Inpatient (IN) ==
[2019-10-07] MEDS ORDERED: Isovue-370 500 ML BOTTLE IVP ONE (18:19)
[2019-10-07 19:06] LABS: Basophils % 0.4 %; Eosinophils # 0.1 K/mcL (0.0-0.6); Eosinophils % 1.3 %; Hematocrit 36.4 % (35.3-44.9); Hemoglobin 12.4 g/dL (11.5-15.4); Immature Granulocytes % 0.4 % (0-4); Lymphocytes % 26.2 %; Mean Corpuscular HGB Conc 34.1 g/dL (31.6-35.5); Mean Corpuscular Hemoglobin 31.6 pg (28.0-33.3); Mean Corpuscular Volume 92.6 fL (83.0-100.0); Mean Platelet Volume 10.7 fL (9.4-12.4); Monocytes # 0.8 K/mcL (0.0-1.3); Neutrophils # 4.5 K/mcL (1.6-8.9); Platelet Count 259 K/mcL (140-400); Red Blood Count 3.93 M/mcL (3.82-4.97); Red Cell Distribution Width 13.1 % (11.5-14.5); Segmented Neutrophils % 60.7 %; White Blood Count 7.4 K/mcL (4.3-11.1)
[2019-10-07 19:15] LABS: Alanine Aminotransferase 23 Units/L (7-52); Albumin 4.2 g/dL (3.5-5.7); Albumin/Globulin Ratio 1.4 (1.1-2.2); Alkaline Phosphatase 90 Units/L (34-104); Aspartate Amino Transferase 34 Units/L (13-39); BUN/Creatinine Ratio 12 (6-26); Bilirubin,Total 0.5 mg/dL (0.3-1.0); Blood Urea Nitrogen 8 mg/dL (8-23); Calcium 8.7 mg/dL (8.6-10.3); Carbon Dioxide 21 mEq/L (23-29); Chloride 91 mEq/L (98-107); Glucose 91 mg/dL (70-105); Osmolality,Calculated 248 (280-300); Sodium 120 mEq/L (136-145); Total Protein 7.2 g/dL (6.4-8.9); eGFR For African Americans > 60 (> 60); eGFR For Non-African Americans > 60 (> 60)
[2019-10-07] MEDS ORDERED: Piperacillin/Tazobactam 3.375 GM in 0.9 % Sodium Chloride Mini Bag 100 ML IVPB ONE (22:17)
[2019-10-07] MEDS ORDERED: Vancomycin 1,250 MG/262.5 ML IV.SOLN IVPB ONE (22:32)
[2019-10-07] MEDS ORDERED: Naloxone 0.4 MG/ML INJ IVP PRN (23:50)
[2019-10-08 00:22] LABS: Bilirubin,Urine Negative (Negative); Blood,Urine Negative (Negative); Clarity,Urine Clear (Clear); Color,Urine Colorless (Yellow); Glucose,Urine (UA) Normal (Normal); Ketones,Urine Negative (Negative); Leukocyte Esterase,Urine Negative (Negative); Nitrite,Urine Negative (Negative); PH,Urine 6.5 pH Units (5.0-8.0); Protein,Urine Negative (Neg-Trace); Specific Gravity,Urine 1.016 (1.010-1.025); Urobilinogen,Urine Normal (Normal)
[2019-10-08] MEDS ORDERED: 0.9 % Sodium Chloride 1,000 ML IVC SCH (01:15)
[2019-10-08] MEDS ORDERED: *HR* Promethazine 25 MG/ML VIAL IVP PRN (02:45)
[2019-10-08] MEDS ORDERED: *HR* LORazepam 2 MG/ML VIAL IVP PRN ×3 (02:45)
[2019-10-08] MEDS ORDERED: hydrOXYzine pamoate 25 MG CAPSULE PO PRN (02:46)
[2019-10-08 03:08] LABS: Basophils % 0.4 %; Eosinophils # 0.2 K/mcL (0.0-0.6); Eosinophils % 3.4 %; Hemoglobin 12.5 g/dL (11.5-15.4); Immature Granulocytes % 0.2 % (0-4); Lymphocytes # 1.6 K/mcL (0.6-4.6); Lymphocytes % 29.7 %; Mean Corpuscular HGB Conc 33.8 g/dL (31.6-35.5); Mean Corpuscular Hemoglobin 30.9 pg (28.0-33.3); Mean Corpuscular Volume 91.4 fL (83.0-100.0); Mean Platelet Volume 10.8 fL (9.4-12.4); Monocytes # 0.9 K/mcL (0.0-1.3); Monocytes % 16.5 %; Neutrophils # 2.6 K/mcL (1.6-8.9); Platelet Count 262 K/mcL (140-400); Red Blood Count 4.05 M/mcL (3.82-4.97); Red Cell Distribution Width 13.1 % (11.5-14.5); Segmented Neutrophils % 49.8 %; White Blood Count 5.3 K/mcL (4.3-11.1)
[2019-10-08] MEDS: *HR* OxyCODONE/APAP 5/325 TABLET PO PRN ×4 (03:18→20:16)
[2019-10-08 03:52] LABS: BUN/Creatinine Ratio 12 (6-26); Blood Urea Nitrogen 8 mg/dL (8-23); Calcium 9.1 mg/dL (8.6-10.3); Carbon Dioxide 22 mEq/L (23-29); Chloride 97 mEq/L (98-107); Glucose 93 mg/dL (70-105); Osmolality,Calculated 264 (280-300); Potassium 4.3 mEq/L (3.5-5.1); Sodium 128 mEq/L (136-145); eGFR For African Americans > 60 (> 60); eGFR For Non-African Americans > 60 (> 60)
[2019-10-08] MEDS ORDERED: Albuterol 2.5 MG/3 ML NEBULIZER IH PRN (05:00)
[2019-10-08 05:35] LABS: BUN/Creatinine Ratio 12 (6-26); Blood Urea Nitrogen 8 mg/dL (8-23); Calcium 9.3 mg/dL (8.6-10.3); Carbon Dioxide 23 mEq/L (23-29); Chloride 97 mEq/L (98-107); Glucose 89 mg/dL (70-105); Osmolality,Calculated 264 (280-300); Potassium 4.2 mEq/L (3.5-5.1); Sodium 128 mEq/L (136-145); eGFR For African Americans > 60 (> 60); eGFR For Non-African Americans > 60 (> 60)
[2019-10-08 07:21] LABS: BUN/Creatinine Ratio 10 (6-26); Blood Urea Nitrogen 7 mg/dL (8-23); Carbon Dioxide 25 mEq/L (23-29); Chloride 100 mEq/L (98-107); Glucose 93 mg/dL (70-105); Osmolality,Calculated 270 (280-300); Potassium 4.2 mEq/L (3.5-5.1); Sodium 131 mEq/L (136-145); eGFR For African Americans > 60 (> 60); eGFR For Non-African Americans > 60 (> 60)
[2019-10-08 09:31] LABS: BUN/Creatinine Ratio 11 (6-26); Blood Urea Nitrogen 7 mg/dL (8-23); Carbon Dioxide 27 mEq/L (23-29); Chloride 102 mEq/L (98-107); Glucose 96 mg/dL (70-105); Osmolality,Calculated 272 (280-300); Potassium 4.3 mEq/L (3.5-5.1); Sodium 132 mEq/L (136-145); eGFR For African Americans > 60 (> 60); eGFR For Non-African Americans > 60 (> 60)
[2019-10-08] MEDS: Piperacillin/Tazobactam 3.375 GM in 0.9 % Sodium Chloride Mini Bag 100 ML IVPB SCH ×2 (09:31→15:56)
[2019-10-08] MEDS: ARIPiprazole 5 MG TABLET PO SCH (09:32)
[2019-10-08] MEDS: Famotidine 20 MG TABLET PO SCH (09:38)
[2019-10-08] MEDS: Folic Acid 1 MG TABLET PO SCH (09:39)
[2019-10-08] MEDS: Loratadine 10 MG TABLET PO SCH (09:39)
[2019-10-08] MEDS: Vitamin B Complex/Vit C/Vit E 1 EACH TABLET PO SCH (09:39)
[2019-10-08] MEDS: lisinopriL 10 MG TABLET PO SCH (09:39)
[2019-10-08] MEDS: Thiamine (B-1) 100 MG TABLET PO SCH (09:39)
[2019-10-08 11:25] LABS: BUN/Creatinine Ratio 11 (6-26); Blood Urea Nitrogen 7 mg/dL (8-23); Calcium 8.9 mg/dL (8.6-10.3); Carbon Dioxide 26 mEq/L (23-29); Chloride 101 mEq/L (98-107); Glucose 91 mg/dL (70-105); Osmolality,Calculated 272 (280-300); Potassium 4.2 mEq/L (3.5-5.1); Sodium 132 mEq/L (136-145); eGFR For African Americans > 60 (> 60); eGFR For Non-African Americans > 60 (> 60)
[2019-10-08] MEDS: Fluticasone Propionate Nasal 50 MCG/SPRAY BOTTLE NS SCH ×2 (12:06→20:17)
[2019-10-08 13:41] LABS: BUN/Creatinine Ratio 11 (6-26); Blood Urea Nitrogen 7 mg/dL (8-23); Calcium 8.9 mg/dL (8.6-10.3); Carbon Dioxide 22 mEq/L (23-29); Chloride 101 mEq/L (98-107); Glucose 92 mg/dL (70-105); Osmolality,Calculated 270 (280-300); Potassium 4.1 mEq/L (3.5-5.1); Sodium 131 mEq/L (136-145); eGFR For African Americans > 60 (> 60); eGFR For Non-African Americans > 60 (> 60)
[2019-10-08] MEDS ORDERED: Aminoglycoside Consult 1 EACH MC ONE (18:00)
[2019-10-08] MEDS: Pregabalin 50 MG CAPSULE PO SCH (20:16)
[2019-10-09] MEDS: *HR* OxyCODONE/APAP 5/325 TABLET PO PRN ×4 (00:23→12:24)
[2019-10-09] MEDS: Piperacillin/Tazobactam 3.375 GM in 0.9 % Sodium Chloride Mini Bag 100 ML IVPB SCH ×3 (00:26→23:56)
[2019-10-09 07:35] LABS: Basophils % 0.4 %; Eosinophils # 0.2 K/mcL (0.0-0.6); Eosinophils % 3.4 %; Hematocrit 40.4 % (35.3-44.9); Hemoglobin 13.2 g/dL (11.5-15.4); Lymphocytes # 1.5 K/mcL (0.6-4.6); Lymphocytes % 31.2 %; Mean Corpuscular HGB Conc 32.7 g/dL (31.6-35.5); Mean Corpuscular Hemoglobin 31.7 pg (28.0-33.3); Mean Corpuscular Volume 97.1 fL (83.0-100.0); Mean Platelet Volume 10.9 fL (9.4-12.4); Monocytes # 0.8 K/mcL (0.0-1.3); Monocytes % 16.9 %; Neutrophils # 2.3 K/mcL (1.6-8.9); Platelet Count 242 K/mcL (140-400); Red Blood Count 4.16 M/mcL (3.82-4.97); Red Cell Distribution Width 13.4 % (11.5-14.5); Segmented Neutrophils % 48.1 %; White Blood Count 4.7 K/mcL (4.3-11.1)
[2019-10-09 07:47] LABS: BUN/Creatinine Ratio 11 (6-26); Blood Urea Nitrogen 8 mg/dL (8-23); Carbon Dioxide 26 mEq/L (23-29); Chloride 103 mEq/L (98-107); Glucose 89 mg/dL (70-105); Osmolality,Calculated 274 (280-300); Potassium 4.4 mEq/L (3.5-5.1); Sodium 133 mEq/L (136-145); eGFR For African Americans > 60 (> 60); eGFR For Non-African Americans > 60 (> 60)
[2019-10-09] MEDS: ARIPiprazole 5 MG TABLET PO SCH (08:11)
[2019-10-09] MEDS: Pregabalin 50 MG CAPSULE PO SCH ×2 (08:12→21:09)
[2019-10-09] MEDS: Loratadine 10 MG TABLET PO SCH (08:13)
[2019-10-09] MEDS: Fluticasone Propionate Nasal 50 MCG/SPRAY BOTTLE NS SCH (08:14)
[2019-10-09] MEDS: Vitamin B Complex/Vit C/Vit E 1 EACH TABLET PO SCH (08:16)
[2019-10-09] MEDS: Famotidine 20 MG TABLET PO SCH (08:16)
[2019-10-09] MEDS: Folic Acid 1 MG TABLET PO SCH (08:16)
[2019-10-09] MEDS: Thiamine (B-1) 100 MG TABLET PO SCH (08:17)
[2019-10-09] MEDS: lisinopriL 10 MG TABLET PO SCH (08:17)
[2019-10-09] MEDS ORDERED: NON-FORMULARY MEDICATION 1 EACH EACH (Calcium Carbonate/Vitamin D3 [Oyster Shell Calcium-V PO SCH (09:00)
[2019-10-09] MEDS ORDERED: Cholecalciferol (D-3) 1,000 UNIT (25MCG) TABLET PO SCH ×2 (09:00→15:06)
[2019-10-09] MEDS ORDERED: *HR* Succinylcholine 200 MG/10 ML VIAL IVP ONE (12:18)
[2019-10-09] MEDS ORDERED: Lidocaine -MPF 2% 2 ML VIAL ONE (12:18)
[2019-10-09] MEDS ORDERED: *HR* FentaNYL (PF) 100 MCG/2 ML VIAL ONE (12:19)
[2019-10-09] MEDS ORDERED: *HR* Propofol 200 MG/20 ML VIAL IVP ONE ×2 (12:19→15:59)
[2019-10-09] MEDS ORDERED: *HR* Midazolam HCl 2 MG/2 ML VIAL ONE (12:19)
[2019-10-09] MEDS ORDERED: Vancomycin 1,000 MG VIAL ONE (13:19)
[2019-10-09] MEDS ORDERED: Ethanol\\Acetic Acid\\Na Ace\\Ben 1,000 ML IRRIG.SOLN IR ONE (13:19)
[2019-10-09] MEDS ORDERED: Dexamethasone 4 MG/ML VIAL ONE (13:20)
[2019-10-09] MEDS ORDERED: Ropivacaine/PF 0.5% 30 ML VIAL ONE (13:20)
[2019-10-09] MEDS ORDERED: Ondansetron 4 MG/2 ML VIAL IVP ONE ×2 (13:49→17:21)
[2019-10-09] MEDS ORDERED: *HR* OxyCODONE Immed Rel 5 MG TABLET PO PRN (13:49)
[2019-10-09] MEDS ORDERED: *HR* Promethazine 25 MG/ML VIAL IVP PRN ×3 (13:49→17:21)
[2019-10-09] MEDS ORDERED: *HR* HYDROmorphone PF 0.5 MG/0.5 ML SYRINGE IVP PRN ×2 (13:49→17:21)
[2019-10-09] MEDS ORDERED: Lidocaine -MPF 4% 5 ML AMPUL ONE (14:34)
[2019-10-09] MEDS ORDERED: *HR* PHENYLEPHRINE 1,000 MCG/10 ML SYRINGE IVP ONE (14:44)
[2019-10-09] MEDS ORDERED: EPHEDrine 50 MG/ML VIAL ONE (14:54)
[2019-10-09] MEDS ORDERED: *HR* Vasopressin 20 UNIT/ML VIAL ONE (15:05)
[2019-10-09] MEDS ORDERED: Ondansetron 4 MG/2 ML VIAL ONE (15:52)
[2019-10-09] MEDS ORDERED: hydrOXYzine pamoate 25 MG CAPSULE PO PRN (17:21)
[2019-10-09] MEDS ORDERED: MOM Conc 10 ML UD.LIQ PO PRN (17:21)
[2019-10-09] MEDS ORDERED: Naloxone 0.4 MG/ML INJ IVP PRN (17:21)
[2019-10-09] MEDS ORDERED: Ondansetron 4 MG/2 ML VIAL IVP PRN (17:21)
[2019-10-09] MEDS ORDERED: Albuterol 2.5 MG/3 ML NEBULIZER IH PRN (17:21)
[2019-10-09] MEDS ORDERED: Sennosides 8.6 MG TABLET PO PRN (17:21)
[2019-10-09] MEDS ORDERED: *HR* LORazepam 2 MG/ML VIAL IVP PRN ×3 (17:21)
[2019-10-09] MEDS ORDERED: *HR* OxyCODONE/APAP 5/325 TABLET PO PRN (17:21)
[2019-10-09] MEDS ORDERED: Ringers Solution, Lactated 1,000 ML IVC SCH (17:21)
[2019-10-09 18:52] LABS: Hematocrit 37.4 % (35.3-44.9); Hemoglobin 11.9 g/dL (11.5-15.4)
[2019-10-09 19:06] LABS: ABG Base Excess 1 mEq/L (-2 to 3); ABG HCO3 29 mEq/L (21-27); ABG Oxygen Saturation 92 % (95-98); ABG PCO2 62 mmHg (35-45); ABG PH 7.27 pH Units (7.32-7.45); ABG PO2 75 mmHg (85-104); ABG TCO2 31 mEq/L (20-26)
[2019-10-09] MEDS ORDERED: 0.9 % Sodium Chloride 500 ML IVC ONE (19:37)
[2019-10-09] MEDS ORDERED: Fluticasone Propionate Nasal 50 MCG/SPRAY BOTTLE NS SCH (21:00)
[2019-10-10] MEDS ORDERED: Acetaminophen IV 1,000 MG/100 ML INFUS..BTL IVPB ONE (02:58)
[2019-10-10 05:14] LABS: ABG Base Excess 1 mEq/L (-2 to 3); ABG HCO3 27 mEq/L (21-27); ABG Oxygen Saturation 88 % (95-98); ABG PCO2 52 mmHg (35-45); ABG PH 7.33 pH Units (7.32-7.45); ABG PO2 59 mmHg (85-104); ABG TCO2 29 mEq/L (20-26)
[2019-10-10] MEDS ORDERED: *HR* LORazepam 2 MG/ML VIAL IVP ONE (06:02)
[2019-10-10] MEDS ORDERED: Ipratropium/Albuterol Neb 3 ML ONE (08:07)
[2019-10-10] MEDS: Ipratropium/Albuterol Neb 3 ML IH SCH ×2 (08:32→11:39)
[2019-10-10] MEDS ORDERED: ARIPiprazole 5 MG TABLET PO SCH (09:00)
[2019-10-10] MEDS ORDERED: Famotidine 20 MG TABLET PO SCH (09:00)
[2019-10-10] MEDS ORDERED: Thiamine (B-1) 100 MG TABLET PO SCH (09:00)
[2019-10-10] MEDS ORDERED: Loratadine 10 MG TABLET PO SCH (09:00)
[2019-10-10] MEDS ORDERED: Cholecalciferol (D-3) 1,000 UNIT (25MCG) TABLET PO SCH (09:00)
[2019-10-10] MEDS ORDERED: Vitamin B Complex/Vit C/Vit E 1 EACH TABLET PO SCH (09:00)
[2019-10-10] MEDS ORDERED: lisinopriL 10 MG TABLET PO SCH (09:00)
[2019-10-10] MEDS: Pregabalin 50 MG CAPSULE PO SCH (09:00)
[2019-10-10] MEDS ORDERED: Folic Acid 1 MG TABLET PO SCH (09:00)
[2019-10-10] MEDS: Piperacillin/Tazobactam 3.375 GM in 0.9 % Sodium Chloride Mini Bag 100 ML IVPB SCH (09:04)
[2019-10-10] MEDS ORDERED: Budesonide/Formoterol 160/4.5 1 PUFF INH IH SCH (10:00)
[2019-10-10] MEDS ORDERED: MethylPREDNISolone 40 MG/ML VIAL IVP SCH (10:00)
[2019-10-10 11:13] VITALS: BP 111/66
[2019-10-10 11:31] LABS: Hematocrit 35.6 % (35.3-44.9); Hemoglobin 11.7 g/dL (11.5-15.4); Mean Corpuscular HGB Conc 32.9 g/dL (31.6-35.5); Mean Corpuscular Hemoglobin 31.6 pg (28.0-33.3); Mean Corpuscular Volume 96.2 fL (83.0-100.0); Platelet Count 234 K/mcL (140-400); Red Cell Distribution Width 13.3 % (11.5-14.5); White Blood Count 12.7 K/mcL (4.3-11.1)
[2019-10-10 11:49] LABS: BUN/Creatinine Ratio 9 (6-26); Blood Urea Nitrogen 7 mg/dL (8-23); Calcium 9.2 mg/dL (8.6-10.3); Carbon Dioxide 25 mEq/L (23-29); Chloride 100 mEq/L (98-107); Glucose 102 mg/dL (70-105); Osmolality,Calculated 272 (280-300); Potassium 4.4 mEq/L (3.5-5.1); Sodium 132 mEq/L (136-145); eGFR For African Americans > 60 (> 60); eGFR For Non-African Americans > 60 (> 60)
[2019-10-11] MEDS ORDERED: Azithromycin 250 MG TABLET PO SCH (09:00)
== END 2019-10-10 12:06 | disposition home or self-care (01) | DRG 315 ==
LOC: 3NENU 17:47 → EMEROOARM 17:47 → SUATTDRO 23:04 → 3NENU 10-08 00:22
PROVIDERS: ADMIT Internal Medicine; ATTEND Family Medicine